=== PATIENT | male | born 1960 | race Caucasian/White ===

== ENCOUNTER 2025-02-27 08:55 | Outpatient (CLI) | payer MEDICARE, SELFPAY ==
--- OUTSIDE RECORDS SUMMARY | 2019-02-15 09:22 | XMS_ITS | Encounter Summary ---
[facility] Address [address] [place] [address] Care Team Providers Care Production Line Technician Name Role Phone Usama Ye MD Primary Care Provider [phone] Reason for Referral * Diagnostic Medical (Routine) - Closed Specialty Diagnoses / Procedures Referred By Contac t Referred To Contact Cardiology Diagnoses Chest pain, atypical Procedures Treadmill Stress Test NV CV STRS TST XERS&/OR RX CONT ECG W/SI&R Jose Eduardo Marshall MD [address] [place] [id number] Phone: tel: fax: [facility] [address] [place] [phone] Phone: tel: fax: Referral ID Status Reason Start Date Expiration Date Visits Re quested Visits Authorized [id number] Closed 02/09/2019 02/09/2020 1 1 Reason for Visit * Diagnostic Medical (Routine) - Closed Specialty Diagnoses / Procedures Referred By Contac t Referred To Contact Cardiology Diagnoses Chest pain, atypical Procedures Treadmill Stress Test NV CV STRS TST XERS&/OR RX CONT ECG W/SI&R Jose Eduardo Marshall MD [address] [place] [id number] Phone: tel: fax: [facility] [address] [address] Phone: tel: fax: Referral ID Status Reason Start Date Expiration Date Visits Re quested Visits Authorized [id number] Closed 02/09/2019 02/09/2020 1 1 Encounter Details Date Type Department Care Team (Latest Contact Info) Description 02/15/2019 9:22 AM EDT Hospital Encounter [facility] [address] [address] Chest pain, atypical Social History Tobacco Use Types Packs/Day Years Used Date Smoking Tobacco: Never Smokeless Tobacco: Never Alcohol Use Standard Drinks/Week Comments No 0 (1 standard drink = 0.6 oz pur e alcohol) [facility] Utilities Answer Date Recorded In the past 12 months has [employer], gas, oil, or water [employer] threatened to shut off services in your home? No 01/06/2025 AUDIT-C Answer Date Recorded Q1: How often do you have a drink containing alcohol? Never 01/06/2025 Q2: How many drinks containi ng alcohol do you have on a typical day when you are drinking? Patient does not drink Q3: How often do you have si x or more drinks on one occasion? Never 01/06/2025 Overall Financial Resource Strain (CARDIA) Answe r Date Recorded How hard is it for you to pa y for the very basics like food, housing, medical care, and heating? Not hard at all 01/06/2025 PHQ-2 Answer Date Recorded Retired Total Score 0 06/10/2021 [facility] Occupat ional Health - Occupational Stress Questionnaire Answer Date Recorded Do you feel stress - tense, restless, nervous, or anxious, or unable to sleep at night because your mind is troubled all the time - these days? Only a little 01/06/2025 Exercise Vital Sign Answer Date Recorde d On average, how many days pe r week do you engage in moderate to strenuous exercise (like a brisk walk)? 5 days 01/06/2025 On average, how many minutes do you engage in exercise at this level? 30 min 01/06/2025 Hunger Vital Sign Answer Date Recorded Within the past 12 months, y ou worried that your food would run out before you got the money to buy more. Never true 01/07/20 25 Within the past 12 months, t he food you bought just didn't last and you didn't have money to get more. Never true 01/06/2025 PRAPARE - Transportation Answer Date Re corded In the past 12 months, has l ack of transportation kept you from medical appointments or from getting medications? No 01/2025 In the past 12 months, has l ack of transportation kept you from meetings, work, or from getting things needed for daily living? No 01/06/2025 Abuse Screen Answer Date Recorded Feels Unsafe at Home or Work/School no 01/05/2025 Feels Threatened by Someone no 12/2024 Does Anyone Try to Keep You From Having Contact with Others or Doing Things Outside Your Home? no 01/05/2025 Physical Signs of Abuse Present no 01/05/2025 Housing Stability Answer Date Recorded Current Living Arrangements home 01/2025 Potentially Unsafe Housing Conditions none 01/06/2025 Family and Community Support Answer Fady e Recorded If for any reason you need h elp with day-to-day activities such as bathing, preparing meals, shopping, managing finances, etc., do you get the help you need? I don't need any help 01/06/2025 How often do you feel lonely or isolated from those around you? Never 01/06/2025 Employment Answer Date Recorded Do you want help finding or keeping work or a job? I do not need or want help 01/06/2025 Disabilities Answer Date Recorded Difficulty Concentrating, Remembering or Making Decisions no 01/06/2025 Difficulty Managing Errands Independently no 01/06/2025 Education Answer Date Recorded Do you want help with school or training? For example, starting or completing job training or getting a high school diploma, GED or equivalent No 01/06/2025 Preferred Language Sierra Leonean 01/06/2025 PHQ-2 Answer Date Recorded Patient Health Questionnaire-2 Score 0 01/06/2025 Sex and Gender Information Value Date Recorded Sex Assigned at Not on file Legal Sex Male 9:50 AM EDT Gender Identity Not on file Sexual Orientation Not on file documented as of this encounter Functional Status * Over the past 2 weeks, how often have you been bothered by any of the following problems? Question Answer Date of Assessment Author Patient Health Questionnaire -2 Score 0 01/06/2025 8:25 AM EDT Niki Fried RN * Calculated C-SSRS Risk Score (Lifetime/Recent) Answer Date of Assessment Author No Risk Indicated 01/05/2025 8:29 PM EDT Africa Smith RN * [place] Suicide Severity Rating Scale (Screener/Recent Self-Report) Question Answer Date of Assessment Author 1. Wish to be (Past 1 Month) No 025 8:29 PM EDT Africa Smith RN 2. Non-Specific Active Suici mercy Thoughts (Past 1 Month) No 01/05/2025 8:29 PM EDT Africa Smith RN 6. Suicidal Behavior (Lifetime) No 8:29 PM EDT Africa Smith RN * Question Answer Date of Assessment Author Little interest or pleasure in doing things Not at all 01/06/2025 8:25 AM EDT Niki Fried RN Feeling down, depressed, or hopeless Not at all 01/06/2025 8:25 AM EDT Niki Fried RN documented as of this encounter Plan of Treatment Not on file documented as of this encounter Procedures Procedure Name Priority Date/Time Associated Diagnosis Comments STRESS TEST ONLY, EXERCISE Routine 02/15/2019 9:38 AM EDT Chest pain, atypical documented in this encounter Results * (ABNORMAL) STRESS TEST ONLY, EXERCISE (02/15/2019 9:38 AM EDT) [facility] CV STRESS PROTOCOL 1 Lamonte Stage 1 1 Duration Min Stage 1 3 Duration Sec Stage 1 0 Grade Stage 1 10 Speed Stage 1 1.7 CV STRESS METS STAGE 1 5 Baseline HR 82 bpm Baseline BP 118/82 mmHg O2 sat rest 98 % Target HR (85%) 136 bpm Max. Pred. HR (100%) 160 bpm HR Stage 1 105 BP Stage 1 122/74 O2 Stage 1 98 Stage 2 2 HR Stage 2 129 BP Stage 2 128/82 O2 Stage 2 97 Duration Min Stage 2 3 Duration Sec Stage 2 0 Grade Stage 2 12 Speed Stage 2 2.5 BH CV STRESS METS STAGE 2 7.5 Stage 3 3 HR Stage 3 97 O2 Stage 3 140 Duration Min Stage 3 3 Duration Sec Stage 3 0 Grade Stage 3 14 Speed Stage 3 3.4 BH CV STRESS METS STAGE 3 10.0 Peak HR 140 bpm Percent Max Pred HR 87.50 % Percent Target HR 103 % Peak BP 128/82 mmHg O2 sat peak 97 % Recovery HR 82 bpm Recovery BP 116/76 mmHg Recovery O2 98 % Exercise duration (min) 7 min Exercise duration (sec) 1 sec Estimated workload 10.1 METS Anatomical Region Laterality Modality Other Narrative 02/15/2019 10:45 AM EDT Abnormal treadmill stress test with 1-1.5 mm of flat inferolateral ST segment depression beginning in stage II of a Lamonte protocol without associated symptoms. No high risk features. Intermediate risk Estrada treadmill score of -1. Stress Findings ECG evidence of myocardial ischemia.Positive clinical evidence of myocardial ischemia. Findings consistent with an abnormal ECG stress test. Rest ECG Baseline ECG of normal sinus rhythm noted. There was no ST segment deviation noted. Stress ECG Stress ECG rhythm of sinus tachycardia noted. A horizontal ST segment depression of 1.5 mm in the inferolateral leads was noted during stress (II, III, aVF, V5 and V6), beginning at 4 minutes of stress. There were no arrhythmias during stress. There were no significant arrhythmias noted during stress. Stress ECG was interpretable and is consistent with an abnormal stress ECG. Abnormal with interpretable ST segment stress ECG interpretation. Stress Description A stress test was performed following the Lamonte protocol. The patient reached the end of the protocol and achieved the target heart rate. The patient reported no symptoms during the stress test. The patient experienced no angina during the stress test. The Estrada Treadmill Score of -0.48 is consistent with a Moderate risk for ischemic heart disease. Blood pressure demonstrated a normal response to stress. Heart rate demonstrated a normal response to stress. Overall, the patient's exercise capacity was mildly impaired. Recovery ECG During recovery, the patient complained of no significant symptoms following stress. Sinus rhythm was noted during recovery. Normal ECG with no significant recovery phase changes noted. Procedure Note Breeding, Thomas Portillo MD - 02/15/2019 Abnormal treadmill stress test with 1-1.5 mm of flat inferolateral STsegment depression beginning in stage II of a Lamonte protocol withoutassociated symptoms. No high risk features. Intermediate risk Estrada treadmill score of -1. us Jose Eduardo Marshall MD CV STRESS ORDERABLES Final R esult documented in this encounter Visit Diagnoses Diagnosis Chest pain, atypical documented in this encounter Additional Health Concerns Infection Onset Date Last Indicated Resolved Time COVID (rule out) 02/05/2021 02/12/2021 02/19/2021 9:08 PM EDT COVID (rule out) 05/28/2021 05/28/2021 05/28/2021 6:11 PM EST COVID (confirmed) 05/28/2021 05/28/2021 08/26/2021 9:08 PM EDT documented as of this encounter Care Teams Production Line Technician Relationship Specialty Start Date End Date Usama Ye MD [address] [place] [address] PCP - General Internal Medicine 01/10/15 01/04/25 documented as of this encounter
--- OUTSIDE RECORDS SUMMARY | 2019-02-15 09:22 | XMS_ITS | Encounter Summary ---
[facility] [address] [place] [address] Care Team Providers Care Academic Tutor Name Role Phone Usama Ye MD Primary Care Provider [phone] Reason for Referral * Diagnostic Imaging (Routine) - Closed Specialty Diagnoses / Procedures Referred By Contac t Referred To Contact Cardiology Diagnoses Chest pain, atypical Procedures Adult Transthoracic Echo Complete W/ Cont if Necessary Per Protocol [place] ECHO HEART XTHORACIC,COMPLETE W DOPPLER Jose Eduardo Marshall MD [address] [place] [address] Phone: tel: fax: [facility] [address] [phone] Phone: tel: fax: Referral ID Status Reason Start Date Expiration Date Visits Re quested Visits Authorized [id number] Closed 02/09/2019 02/09/2020 1 1 Reason for Visit * Diagnostic Imaging (Routine) - Closed Specialty Diagnoses / Procedures Referred By Contac t Referred To Contact Cardiology Diagnoses Chest pain, atypical Procedures Adult Transthoracic Echo Complete W/ Cont if Necessary Per Protocol [place] ECHO HEART XTHORACIC,COMPLETE W DOPPLER Jose Eduardo Marshall MD [address] [address] Phone: tel: fax: [facility] [address] [address] Phone: tel: fax: Referral ID Status Reason Start Date Expiration Date Visits Re quested Visits Authorized [id number] Closed 02/09/2019 02/09/2020 1 1 Encounter Details Date Type Department Care Team (Latest Contact Info) Description 02/15/2019 9:22 AM EDT Hospital Encounter [facility] [address] [phone] Chest pain, atypical Social History Tobacco Use Types Packs/Day Years Used Date Smoking Tobacco: Never Smokeless Tobacco: Never Alcohol Use Standard Drinks/Week Comments No 0 (1 standard drink = 0.6 oz pur e alcohol) [facility] Utilities Answer Date Recorded In the past 12 months has [employer], gas, oil, or water [employer] threatened to shut off services in your [...] Date Recorded Retired Total Score 0 06/10/2021 [facility] Occupat ional Health - Occupational Stress [...] GED or equivalent No 01/06/2025 Preferred Language Chilean 01/06/2025 PHQ-2 Answer Date Recorded Patient Health Questionnaire-2 Score 0 01/06/2025 Sex and Gender Information Value Date Recorded Sex Assigned at Not on file Legal Sex Male 9:50 AM EDT Gender Identity Not on file Sexual Orientation Not on file documented as of this encounter Last Filed Vital Signs Vital Sign Reading Time Taken Comments Blood Pressure 118/82 02/15/2019 9:23 AM EDT Pulse - - Temperature - - Respiratory Rate - - Oxygen Saturation - - Inhaled Oxygen Concentration - - Weight 93 kg (205 lb) 02/15/2019 9:23 AM EDT Height 180.3 cm (5' 11 ) 02/15/2019 9:23 AM EDT Body Mass Index 28.59 02/15/2019 9:23 AM EDT documented in this encounter Functional Status * Over the past 2 weeks, how often have you been bothered by any of the following problems? Question Answer Date of Assessment Author Patient Health Questionnaire -2 Score 0 01/06/2025 8:25 AM EDT Niki Fried RN * Calculated C-SSRS Risk Score (Lifetime/Recent) Answer Date of Assessment Author No Risk Indicated 01/05/2025 8:29 PM EDT Africa Smith RN * [place] Suicide Severity Rating Scale (Screener/Recent Self-Report) Question [...] Procedure Name Priority Date/Time Associated Diagnosis Comments ECHO COMPLETE W/ DOPPLER AND COLOR FLOW Routine 02/15/2019 9:35 AM EDT Chest pain, atypical documented in this encounter Results * ECHO COMPLETE W/ DOPPLER AND COLOR FLOW (02/15/2019 9:35 AM EDT) IVSd 0.95 cm [facility] IVSs 1.3 cm [facility] LVIDd 4.5 cm [facility] LVIDs 3.1 cm [facility] LVPWd 0.7 cm [facility] BH CV ECHO ALETA - LVPWS 1.0 cm [facility] IVS/LVPW 1.4 [facility] FS 30.3 % [facility] EDV(Teich) 90.1 ml [facility] ESV(Teich) 37.9 ml [facility] EF(Teich) 57.9 % [facility] EDV(cubed) 88.1 ml [facility] ESV(cubed) 29.8 ml [facility] EF(cubed) 66.2 % [facility] % IVS thick 31.6 % [facility] % LVPW thick 42.9 % [facility] LV mass(C)d 116.1 grams [facility] LV mass(C)s 103.2 grams [facility] SV(Teich) 52.1 ml [facility] SV(cubed) 58.3 ml [facility] Ao root diam 2.0 cm [facility] Ao root area 3.1 cm^2 [facility] LA dimension (2D) 3.3 cm [facility] LA/Ao 1.7 [facility] LVOT diam 2.0 cm [facility] LVOT area 3.1 cm^2 [facility] LVOT area(traced) 3.1 cm^2 [facility] LAd major 5.2 cm [facility] LVLd ap4 8.7 cm [facility] EDV(MOD-sp4) 102.0 ml [facility] LVLs ap4 7.1 cm [facility] ESV(MOD-sp4) 34.0 ml [facility] EF(MOD-sp4) 66.7 % [facility] SV(MOD-sp4) 68.0 ml [facility] MV E max dale 54.3 cm/sec [facility] MV A max dale 49.5 cm/sec [facility] MV E/A 1.1 [facility] LV IVRT 0.14 sec [facility] MV V2 max 71.7 cm/sec [facility] MV max PG 2.1 mmHg [facility] MV V2 mean 50.2 cm/sec [facility] MV mean PG 1.0 mmHg [facility] MV V2 VTI 24.1 cm [facility] MVA(VTI) 2.3 cm^2 [facility] MV P1/2t max dale 54.3 cm/sec [facility] MV P1/2t 105.3 msec [facility] MVA(P1/2t) 2.1 cm^2 [facility] MV dec slope 151.0 cm/sec^2 [facility] MV dec time 0.35 sec [facility] Ao pk dale 119.5 cm/sec [facility] Ao max PG 6.0 mmHg [facility] Ao max PG (full) 2.7 mmHg [facility] Ao V2 mean 87.0 cm/sec [facility] Ao mean PG 3.0 mmHg [facility] Ao mean PG (full) 1.0 mmHg [facility] Ao V2 VTI 27.8 cm [facility] NITIN(I,A) 2.0 cm^2 [facility] NITIN(I,D) 2.0 cm^2 [facility] NITIN(V,A) 2.4 cm^2 [facility] NITIN(V,D) 2.4 cm^2 [facility] LV V1 max PG 3.3 mmHg [facility] LV V1 mean PG 2.0 mmHg [facility] LV V1 max 91.1 cm/sec [facility] LV V1 mean 57.7 cm/sec [facility] LV V1 VTI 17.4 cm [facility] SV(Ao) 87.3 ml [facility] SV(LVOT) 54.7 ml [facility] TV V2 max 51.6 cm/sec [facility] TV max PG 1.1 mmHg [facility] PA V2 max 89.4 cm/sec [facility] PA max PG 3.2 mmHg [facility] TR max dale 195.0 cm/sec [facility] TR max PG 15.0 mmHg [facility] RVSP(TR) 25.0 mmHg [facility] RAP systole 5 mmHg [facility] MVA P1/2T LCG 4.1 cm^2 [facility] Lat E/e' 4.1 [facility] Med E/e' 5.8 [facility] Lat Peak E' Dale 13.3 cm/sec [facility] Med Peak E' Dale 9.4 cm/sec [facility] Avg E/e' ratio 4.78 [facility] Echo EF Estimated 58 % [facility] Anatomical Region Laterality Modality Ultrasound 02/15/2019 9:25 AM EDT Narrative 02/15/2019 10:48 AM EDT Estimated EF = 58%. Left Ventricle Estimated EF appears to be in the range of 56 - 60%. Estimated EF = 58%. Normal left ventricular cavity size and wall thickness noted. All left ventricular wall segments contract normally. Septal wall motion is normal. Left ventricular diastolic function is normal. Normal left atrial pressure. There is no evidence of a left ventricular mass or thrombus present. Right Ventricle Normal right ventricular cavity size, wall thickness, systolic function and septal motion noted. No evidence of a right ventricular thrombus present. No evidence of a right ventricular mass present. Left Atrium Normal left atrial size and volume noted. No evidence of a left atrial thrombus present. No evidence of a left atrial mass present. appear normal with no flow abnormalities. Right Atrium Normal right atrial size noted. The inferior vena cava is normally sized. Normal IVC inspiratory collapse of greater than 50% noted. Normal IVC flow pattern noted. No persistent left superior vena cava noted. No evidence of a right atrial thrombus present. No evidence of a right atrial mass present. Mitral Valve The mitral valve is normal in structure. Trace mitral valve regurgitation is present. No significant mitral valve stenosis is present. Tricuspid Valve The tricuspid valve is normal. No evidence of tricuspid valve stenosis is present. Physiologic tricuspid valve regurgitation is present. Estimated right ventricular systolic pressure from tricuspid regurgitation is normal (<35 mmHg). No evidence of pulmonary hypertension is present. Aortic Valve The aortic valve is structurally normal. The valve appears trileaflet. No aortic valve regurgitation is present. No aortic valve stenosis is present. Pulmonic Valve The pulmonic valve is structurally normal. There is no significant pulmonic valve stenosis present. There is no significant pulmonic valve regurgitation present. Pericardium The pericardium is normal. There is no evidence of pericardial effusion. Additional Study Details Echocardiogram The study is technically good for diagnosis. Greater Vessels No dilation of the aortic root is present. No dilation of the sinuses of Valsalva is present. Wall Scoring Resting Score Index: 1.00 The left ventricular wall motion is normal. us Jose Eduardo Marshall MD CV ECHO ORDERABLES Final Res ult documented in this encounter Visit Diagnoses Diagnosis Chest pain, atypical documented in this encounter Additional Health Concerns Infection Onset Date Last Indicated Resolved Time COVID (rule out) 02/05/2021 02/12/2021 02/19/2021 9:08 PM EDT COVID (rule out) 05/28/2021 05/28/2021 05/28/2021 6:11 PM EST COVID (confirmed) 05/28/2021 05/28/2021 08/26/2021 9:08 PM EDT documented as of this encounter Care Teams Academic Tutor Relationship Specialty Start Date End Date Usama Ye MD [address] [place] [address] PCP - General Internal Medicine 01/10/15 01/04/25 documented as of this encounter
--- OUTSIDE RECORDS SUMMARY | 2025-01-05 20:48 | XMS_ITS | Encounter Summary ---
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 Glucose, UA Negative Negative Ketones, UA Negative Negative Bilirubin, UA Negative Negative Blood, UA Negative Negative Protein, UA Negative Negative Leuk Esterase, UA Negative Negative Nitrite, UA Negative Negative Urobilinogen, UA 0.2 E.U./dL 0.2 - 1.0 E.U./dL POC Glucose Once Collection Time: 01/05/25 11:54 PM Specimen: Blood Result Value Ref Range Glucose 74 70 - 130 mg/dL High Sensitivity Troponin T Collection Time: 01/06/25 12:10 AM Specimen: Blood Result Value Ref Range HS Troponin T 12 <22 ng/L High Sensitivity Troponin T 1Hr Collection Time: 01/06/25 1:15 AM Specimen: Blood Result Value Ref Range HS Troponin T 13 <22 ng/L Troponin T Numeric Delta 1 Abnormal if >/=3 ng/L If labs were ordered, I independently reviewed the results and considered them in treating the patient. See medical decision making discussion section for my interpretation of lab results. RADIOLOGY CT Angiogram Chest Pulmonary Embolism Result Date: 01/06/2025 FINAL REPORT TECHNIQUE: null CLINICAL HISTORY: Chest pain, near syncope, hypotension COMPARISON: null FINDINGS: CT angiography chest with contrast. MIP and MPR reformations. Comparison: None providedFindings: The heart is normal size. No thoracic aortic aneurysm or dissection. No pulmonary artery filling defects. The visualized thyroid and mediastinum are unremarkable. No consolidation or effusion. There is bilateral diffuse ground-glass density. Prior granulomatous disease changes. The visualized upper abdomen demonstrates prior cholecystectomy change and multiple splenic calcifications. The bones are intact. IMPRESSION: 1. No pulmonary emboli. 2. Nonspecific ground-glass density which may represent an acute pneumonitis. 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 There is mucosal thickening of the visualized distal esophagus. Prior cholecystectomy. Minimal associated intrahepatic and extrahepatic biliary dilatation. Multiple splenic calcifications from priorgranulomatous disease. The pancreas is unremarkable. No renal stones or hydronephrosis. Stable leftrenal cortical defects likely from previous infection or infarction. No bowel obstruction, pneumoperitoneum, or pneumatosis. Normal appendix. The bladder is unremarkable. There is prostatomegaly. No free fluid. The bones are intact. IMPRESSION: 1. No acute findings. 2. Changes of esophagitis. Authenticated and I ordered and independently reviewed the above noted radiographic studies. See radiologist's dictation for official interpretation. Per my independent reading: CT imaging of the abdomen pelvis obtained based on my independent initial review is negative for evidence of bowel obstruction, hydronephrosis or abdominal aortic aneurysm. PROCEDURES Procedures ECG 12 Lead Syncope Final Result MEDICATIONS GIVEN IN ER Medications sodium chloride 0.9 % flush 10 mL (has no administration in time range) sodium chloride 0.9 % bolus 1,000 mL (0 mL Intravenous Stopped 01/05/25 2300) fentaNYL citrate (PF) (SUBLIMAZE) injection 25 mcg (25 mcg Intravenous Given 01/05/252142) ondansetron (ZOFRAN) injection 4 mg (4 mg Intravenous Given 01/05/252142) ketorolac (TORADOL) injection 15 mg (15 mg Intravenous Given 01/05/252142) HYDROmorphone (DILAUDID) injection 0.25 mg (0.25 mg Intravenous Given 01/05/252255) iopamidol (ISOVUE-300) 61 % injection 100 mL (100 mL Intravenous Given 01/05/25 2333) sodium chloride 0.9 % bolus 1,000 mL (0 mL Intravenous Stopped 01/06/25 0115) iopamidol (ISOVUE-300) 61 % injection 85 mL (85 mL Intravenous Given 01/06/25 0058) MEDICAL DECISION MAKING, PROGRESS, and CONSULTS All labs, if obtained, have been independently reviewed by me. All radiology studies, if obtained, have been reviewed by me and the radiologist dictating the report. All EKG's, if obtained, have beenindependently viewed and interpreted by me/my attending physician. Discussion below represents my analysis of pertinent findings related to patient's condition, differential diagnosis, treatment plan and final disposition. Differential diagnosis: Differential diagnosis for this patient includes hepatitis, cholangitis, pancreatitis, gastritis, enteritis, colitis, gastroenteritis, appendicitis, volvulus, obstruction, ischemia, torsion, cystitis, pyelonephritis, nephrolithiasis, uretolithiasis, other acute emergency. Patient reports cholecystectomy. Medical Decision Making Discussion: Vitals reviewed and demonstrate bradycardia but otherwise are normal. Labs reviewed and are all unremarkable. UA negative for infection. CT abdomen pelvis obtained and per radiology is negative for acute findings. Patient ambulated to the restroom where he reported that he began feeling dizzy. He reports that trying to ambulate back to his gurney he felt very nauseous as if he was going to throw up, lightheaded and very sweaty. Patient was assisted back into the gurney where he was noted to be bradycardic, hypotensive, pale and diaphoretic. Patient given IV fluid bolus with resolution of hypotension but he remained bradycardic. EKG was obtained which based on my independent review demonstrated sinus bradycardia. No AV block. No acute ischemic changes. Patient reported he has some associated dyspnea and retrosternal chest discomfort. Troponin was sent which was normal. Repeat troponin obtained and there was no significant delta rise. Given near syncopal event with reported chest pain and dyspnea CT PE protocol performed and per radiology is negative for evidence of PE, dissection or any other acute findings. Patient was noted to have a sinus pause while on telemetry monitoring. On repeat examination patient's had resolution of hypotension but remains bradycardic. He reports resolution of his lightheadedness. Given his persistent bradycardia with near syncopal event and sinus pause on telemetry monitoring I think he is appropriate for hospitalization. This was discussed with Dr. Ramires who accepted the patient for hospitalization. 30 minutes of critical care provided. This time excludes other billable procedures. Time does include preparation of documents, medical consultations, review of old records, and direct bedside care. Patient is at high risk for life-threatening deterioration due to near syncope, transient hypotension, bradycardia. Additional sources: - Discussed/ obtained information from independent historians: - External (non-ED) record review: Gastroenterology note from 01/24/2025 documenting history of heart disease with prior PCI, GERD, hepatic flexure syndrome. - Chronic or social conditions impacting care: Heart disease Shared Decision Making: After my consideration of clinical presentation and any laboratory/radiology studies obtained, I discussed the findings with the patient/patient containers sales representative who is in agreement with the treatment plan and the final disposition. Risks and benefits of discharge and/or observation/admission were discussed. Orders placed during this visit: Orders Placed This Encounter Procedures CT Abdomen Pelvis With Contrast CT Angiogram Chest Pulmonary Embolism [place] Draw Comprehensive Metabolic Panel Lipase Urinalysis With Microscopic If Indicated (No Culture) - Urine, Clean Catch Lactic Acid, Plasma CBC Auto Differential High Sensitivity Troponin T High Sensitivity Troponin T 1Hr NPO Diet NPO Type: Strict NPO Undress & Gown Code Status and Medical Interventions: CPR (Attempt to Resuscitate); Full Support POC Glucose Once ECG 12 Lead Syncope Insert Peripheral IV Initiate Observation Status CBC & Differential Green Top (Gel) Lavender Top Gold Top - SST Light Blue Top OF 02:22 EDT VITALS: BP - 112/63 HR - 52 TEMP - 97.8 ??F (36.6 ??C) (Oral) O2 SATS - 94% DIAGNOSIS Final diagnoses: Near syncope Bradycardia Right lower quadrant abdominal pain DISPOSITION Admit Please note that portions of this document were completed with voice recognition software. Ike Enamorado MD 01/06/25 0222 documented in this encounter Miscellaneous Notes * Case Management/Social Work - Niki Fried RN - 01/06/2025 10:22 AM EDT Case Management Discharge Note Final Note: Patient is discharging today. His plan is home with his . will transport. No needs noted. Selected Continued Care - Admitted Since 01/05/2025 Destination No services have been selected for the patient. Durable Medical Equipment No services have been selected for the patient. Dialysis/Infusion No services have been selected for the patient. Home Medical Care No services have been selected for the patient. Therapy No services have been selected for the patient. Community Resources No services have been selected for the patient. Community & DME No services have been selected for the patient. Transportation Services Transportation: Private Transportation Private: Car Final Discharge Disposition Code: 01 - home or self-care * Case Management/Social Work - Niki Fried RN - 01/06/2025 8:29 AM EDT Images from the original note were not included. Discharge Planning Assessment Dennys Patient Name: Neo Reardon Jr. Today's Date: 01/06/2025 Admit Date: 01/05/2025 Plan: Home with , pending therapy recommendations Discharge Needs Assessment Row Name 01/06/25 0826 Living Environment People in Home spouse Primary Care Provided by self Provides Primary Care For no one Family Caregiver if Needed spouse Family Caregiver Names , Patience Quality of Family Relationships helpful;involved;supportive Able to Return to Prior Arrangements yes Resource/Environmental Concerns Resource/Environmental Concerns none Transportation Concerns none Transition Planning Patient/Family Anticipates Transition to home with family Patient/Family Anticipated Services at Transition case resource managersalt manager Anticipated family or friend will provide Discharge Needs Assessment Readmission Within the Last 30 Days no previous admission in last 30 days Equipment Currently Used at Home cpap Concerns to be Addressed denies needs/concerns at this time Anticipated Changes Related to Illness none Equipment Needed After Discharge other (see comments) TBD Discharge Plan Row Name 01/06/25 0827 Plan Plan Home with , pending therapy recommendations Patient/Family in Agreement with Plan yes Plan Comments Spoke to patient and at bedside to initiate discharge planning. Verified demographics. Patient lives at home with his and is independent with ADL's/drives. CPAP. He is not current with home health and does not use home oxygen. PCP is Vandana Abrams. Preferred pharmacy is [facility]. Declines meds to bed. No living will/POA/HCS. Denies any financial, food or resource concerns. Plan is home with his . CM will continue to follow. Continued Care and Services - Admitted Since 01/05/2025 No active coordination exists. Demographic Summary Row Name 01/06/25 0825 General Information Admission Type observation Arrived From emergency department Required Notices Provided Observation Status Notice Referral Source admission list Reason for Consult discharge planning Functional Status Row Name 01/06/25 0825 Functional Status Usual Activity Tolerance good Current Activity Tolerance good Functional Status, IADL Medications independent Meal Preparation independent Housekeeping independent Laundry independent Shopping independent Psychosocial No documentation. Abuse/Neglect No documentation. Legal No documentation. Substance Abuse No documentation. Patient Forms No documentation. Niki Fried RN documented in this encounter Plan of Treatment Not on file documented as of this encounter Procedures Procedure Name Priority Date/Time Associated Diagnosis Comments HIGH SENSITIVITIY TROPONIN T 1HR STAT 01/06/2025 1:[address] ANGIOGRAM CHEST PULMONARY EMBOLISM STAT 01/06/2025 12:58 AM EDT TROPONIN STAT 01/06/2025 12:10 AM EDT ECG 12-LEAD STAT 01/06/2025 12:09 AM EDT POCT GLUCOSE FINGERSTICK STAT 01/05/2025 11:[address] ABDOMEN PELVIS W CONTRAST STAT 01/05/2025 11:32 PM EDT URINALYSIS W/ MICROSCOPIC IF INDICATED (NO CULTURE) STAT 01/05/2025 9:49 PM EDT GOLD TOP - SST STAT 01/05/2025 8:37 PM EDT DK GREEN TOP STAT 01/05/2025 8:37 PM EDT CBC WITH AUTO DIFFERENTIAL STAT 01/05/2025 8:37 PM EDT LAVENDER TOP STAT 01/05/2025 8:37 PM EDT LIGHT BLUE TOP STAT 01/05/2025 8:37 PM EDT RAINBOW DRAW STAT 01/05/2025 8:37 PM EDT CBC AND DIFFERENTIAL STAT 01/05/2025 8:37 PM EDT LIPASE STAT 01/05/2025 8:37 PM EDT LACTIC ACID, PLASMA STAT 01/05/2025 8 :37 PM EDT COMPREHENSIVE METABOLIC PANEL STAT 01/05/2025 8:37 PM EDT documented in this encounter Results * High Sensitivity Troponin T 1Hr (01/06/2025 1:15 AM EDT) HS Troponin T 13 <22 ng/L 01/06/2025 1:40 AM EDT [facility] Troponin T Numeric Delta 1 Abnormal if >/=3 ng/L 01/06/2025 1:40 AM EDT [facility] Blood Venipuncture / Unknown 01/06/2025 1:15 AM EDT 01/06/2025 1:17 AM EDT Narrative [facility] - 01/06/2025 1:40 AM EDT High Sensitive Troponin T Reference Range: <14.0 ng/L- Negative Female for AMI <22.0 ng/L- Negative Male for AMI >=14 - Abnormal Female indicating possible myocardial injury. >=22 - Abnormal Male indicating possible myocardial injury. Clinicians would have to utilize clinical acumen, EKG, Troponin, and serial changes to determine if it is an Acute Myocardial Infarction or myocardial injury due to an underlying chronic condition. us Ike Enamorado MD LAB BLOOD ORDERABLES Final Resul t [facility]
[address] [place] [address], * CT Angiogram Chest Pulmonary Embolism (01/06/2025 12:58 AM EDT) Anatomical Region Laterality Modality Chest N/A Computed Tomogra phy 01/06/2025 1:52 AM EDT Impressions 01/06/2025 1:52 AM EDT IMPRESSION: 1. No pulmonary emboli. 2. Nonspecific ground-glass density which may represent an acute pneumonitis. Authenticated and Narrative 01/06/2025 1:52 AM EDT FINAL REPORT TECHNIQUE: null CLINICAL HISTORY: Chest pain, near syncope, hypotension COMPARISON: null FINDINGS: CT angiography chest with contrast. MIP and MPR reformations. Comparison: None provided Findings: The heart is normal size. No thoracic aortic aneurysm or dissection. No pulmonary artery filling defects. The visualized thyroid and mediastinum are unremarkable. No consolidation or effusion. There is bilateral diffuse ground-glass density. Prior granulomatous disease changes. The visualized upper abdomen demonstrates prior cholecystectomy change and multiple splenic calcifications. The bones are intact. Procedure Note Félix Stokes MD - 01/06/2025 FINAL REPORT TECHNIQUE: null CLINICAL HISTORY: Chest pain, near syncope, hypotension COMPARISON: null FINDINGS: CT angiography chest with contrast. MIP and MPR reformations. Comparison: None provided Findings: The heart is normal size. No thoracic aortic aneurysm or dissection. No pulmonary artery filling defects. The visualized thyroid and mediastinum are unremarkable. No consolidation or effusion. There is bilateral diffuse ground-glassdensity. Prior granulomatous disease changes. The visualized upper abdomen demonstrates prior cholecystectomy change andmultiple splenic calcifications. The bones are intact. IMPRESSION: IMPRESSION: 1. No pulmonary emboli. 2. Nonspecific ground-glass density which may represent an acutepneumonitis. Authenticated and us Ike Enamorado MD IMG CT ORDERABLES Final Result * High Sensitivity Troponin T (01/06/2025 12:10 AM EDT) Pathologist [facility] HS Troponin T 12 <22 ng/L 01/06/2025 12:37 AM EDT [facility] Blood Venipuncture / Unknown 01/06/2025 12:10 AM EDT 01/06/2025 12:13 AM EDT Narrative [facility] - 01/06/2025 12:37 AM EDT High Sensitive Troponin T Reference Range: <14.0 ng/L- Negative Female for AMI <22.0 ng/L- Negative Male for AMI >=14 - Abnormal Female indicating possible myocardial injury. >=22 - Abnormal Male indicating possible myocardial injury. Clinicians would have to utilize clinical acumen, EKG, Troponin, and serial changes to determine if it is an Acute Myocardial Infarction or myocardial injury due to an underlying chronic condition. us Ike Enamorado MD LAB BLOOD ORDERABLES Final Resul t [facility]
[address] [place] [address], * ECG 12 Lead Syncope (01/06/2025 12:09 AM EDT) us Ike Enamorado MD ECG ORDERABLES Final Result * POC Glucose Once (01/05/2025 11:54 PM EDT) Pathologist [facility] Glucose 74 70 - 130 mg/dL 01/05/2025 11:57 PM EDT [facility] Comment:Serial Number: [id number]: [id number] Blood 01/05/2025 11:5 4 PM EDT 01/05/2025 11:57 PM EDT Ike Enamorado MD POINT OF CARE TEST ORDERABLES Fi nal Result [facility]
[address] [place] [address], * CT Abdomen Pelvis With Contrast (01/05/2025 11:32 PM EDT) Anatomical Region Laterality Modality Abdomen, Pelvis N/A Computed Tomogra phy 01/06/2025 12:2 5 AM EDT Impressions 01/06/2025 12:25 AM EDT IMPRESSION: 1. No acute findings. 2. Changes of esophagitis. 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 There is mucosal thickening of the visualized distal esophagus. Prior cholecystectomy. Minimal associated intrahepatic and extrahepatic biliary dilatation. Multiple splenic calcifications from prior granulomatous disease. The pancreas is unremarkable. No renal stones or hydronephrosis. Stable left renal cortical defects likely from previous infection or infarction. No bowel obstruction, pneumoperitoneum, or pneumatosis. Normal appendix. The bladder is unremarkable. There is prostatomegaly. No free fluid. The bones are intact. 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 There is mucosal thickening of the visualized distal esophagus. Prior cholecystectomy. Minimal associated intrahepatic and extrahepaticbiliary dilatation. Multiple splenic calcifications from prior granulomatous disease. The pancreas is unremarkable. No renal stones or hydronephrosis. Stable left renal cortical defectslikely from previous infection or infarction. No bowel obstruction, pneumoperitoneum, or pneumatosis. Normal appendix. The bladder is unremarkable. There is prostatomegaly. No free fluid. The bones are intact. IMPRESSION: IMPRESSION: 1. No acute findings. 2. Changes of esophagitis. Authenticated and Ike Enamorado MD IMG CT ORDERABLES Final Result * Urinalysis With Microscopic If Indicated (No Culture) - Urine, Clean Catch (01/05/2025 9:49 PM EDT) Color, UA Yellow Yellow, Straw 01/05/2025 9:58 PM EDT [facility] Appearance, UA Clear Clear 01/05/2025 9:58 PM EDT [facility] pH, UA 6.5 5.0 - 8.0 01/05/2025 9:58 PM EDT [facility] Specific [place], UA <=1.005 1.005 - 1.030 01/05/2025 9:58 PM EDT [facility] Glucose, UA Negative Negative 01/05/2025 9:58 PM EDT [facility] Ketones, UA Negative Negative 01/05/2025 9:58 PM EDT [facility] Bilirubin, UA Negative Negative 01/05/2025 9:58 PM EDT [facility] Blood, UA Negative Negative 01/05/2025 9:58 PM EDT [facility] Protein, UA Negative Negative 01/05/2025 9:58 PM EDT [facility] Leuk Esterase, UA Negative Negative 01/05/2025 9:58 PM EDT [facility] Nitrite, UA Negative Negative 01/05/2025 9:58 PM EDT [facility] Urobilinogen, UA 0.2 E.U./dL 0.2 - 1.0 E.U./dL 01/05/2025 9:58 PM EDT [facility] Urine Urine specimen obtained by clean catch procedure / Unknown Collection / Unknown 01/05/2025 9:49 PM EDT 01/05/2025 9:55 PM EDT Narrative [facility] - 01/05/2025 9:58 PM EDT Urine microscopic not indicated. Ike Enamorado MD URINE ORDERABLES Final Result [facility]
[address] [place] [address], * CBC Auto Differential (01/05/2025 8:37 PM EDT) WBC 5.50 3.40 - 10.80 10*3/mm3 01/05/2025 8:44 PM EDT [facility] RBC 4.27 4.14 - 5.80 10*6/mm3 01/05/2025 8:44 PM EDT [facility] Hemoglobin 13.0 13.0 - 17.7 g/dL 01/05/2025 8:44 PM EDT [facility] Hematocrit 37.7 37.5 - 51.0 % 01/05/2025 8:44 PM EDT [facility] MCV 88.3 79.0 - 97.0 fL 01/05/2025 8:44 PM EDT [facility] MCH 30.4 26.6 - 33.0 pg 01/05/2025 8:44 PM EDT [facility] MCHC 34.5 31.5 - 35.7 g/dL 01/05/2025 8:44 PM EDT [facility] RDW 12.7 12.3 - 15.4 % 01/05/2025 8:44 PM EDT [facility] RDW-SD 40.9 37.0 - 54.0 fl 01/05/2025 8:44 PM EDT [facility] MPV 9.9 6.0 - 12.0 fL 01/05/2025 8:44 PM EDT [facility] Platelets 215 140 - 450 10*3/mm3 01/05/2025 8:44 PM EDT [facility] Neutrophil % 61.6 42.7 - 76.0 % 01/05/2025 8:44 PM EDT [facility] Lymphocyte % 24.5 19.6 - 45.3 % 01/05/2025 8:44 PM EDT [facility] Monocyte % 8.2 5.0 - 12.0 % 01/05/2025 8:44 PM EDT [facility] Eosinophil % 4.4 0.3 - 6.2 % 01/05/2025 8:44 PM EDT [facility] Basophil % 1.1 0.0 - 1.5 % 01/05/2025 8:44 PM EDT [facility] Immature Grans % 0.2 0.0 - 0.5 % 01/05/2025 8:44 PM EDT [facility] Neutrophils, Absolute 3.39 1.70 - 7.00 10*3/mm3 01/05/2025 8:44 PM EDT [facility] Lymphocytes, Absolute 1.35 0.70 - 3.10 10*3/mm3 01/05/2025 8:44 PM EDT [facility] Monocytes, Absolute 0.45 0.10 - 0.90 10*3/mm3 01/05/2025 8:44 PM EDT [facility] Eosinophils, Absolute 0.24 0.00 - 0.40 10*3/mm3 01/05/2025 8:44 PM EDT [facility] Basophils, Absolute 0.06 0.00 - 0.20 10*3/mm3 01/05/2025 8:44 PM EDT [facility] Immature Grans, Absolute 0.01 0.00 - 0.05 10*3/mm3 01/05/2025 8:44 PM EDT [facility] nRBC 0.0 0.0 - 0.2 /100 WBC 01/05/2025 8:44 PM EDT [facility] Blood Venipuncture / Unknown 01/05/2025 8:37 PM EDT 01/05/2025 8:41 PM EDT us Ike Enamorado MD LAB BLOOD ORDERABLES Final Resul t Performing Organization Address City/[facility]/ZIP Co de Phone Number [facility]
[address] [place] [address], * Light Blue Top (01/05/2025 8:37 PM EDT) Extra Tube Hold for add-ons. 01/05/2025 8:45 PM EDT [facility] Comment:Auto resulted Blood Venipuncture / Unknown 01/05/2025 8:37 PM EDT 01/05/2025 8:41 PM EDT us Ike Enamorado MD LAB BLOOD ORDER ONLY Final Resul t Performing Organization Address [facility] Co de Phone Number [facility]
[address] [place] [address], * Gold Top - SST (01/05/2025 8:37 PM EDT) Extra Tube Hold for add-ons. 01/05/2025 9:00 PM EDT [facility] Comment:Auto resulted. Blood Venipuncture / Unknown 01/05/2025 8:37 PM EDT 01/05/2025 8:41 PM EDT us Ike Enamorado MD LAB BLOOD ORDER ONLY Final Resul t Performing Organization Address City/[facility] Co de Phone Number [facility]
[address] [place] [address], * Lavender Top (01/05/2025 8:37 PM EDT) Extra Tube hold for add-on 01/05/2025 8:45 PM EDT [facility] Comment:Auto resulted Blood Venipuncture / Unknown 01/05/2025 8:37 PM EDT 01/05/2025 8:41 PM EDT us Ike Enamorado MD LAB BLOOD ORDER ONLY Final Resul t Performing Organization Address [facility] de Phone Number [facility]
[address] [place] [address], * Green Top (Gel) (01/05/2025 8:37 PM EDT) Extra Tube Hold for add-ons. 01/05/2025 8:45 PM EDT [facility] Comment:Auto resulted. Blood Venipuncture / Unknown 01/05/2025 8:37 PM EDT 01/05/2025 8:41 PM EDT us Ike Enamorado MD LAB BLOOD ORDER ONLY Final Resul t Performing Organization Address [facility] de Phone Number [facility]
[address] [place] [address], * Lactic Acid, Plasma (01/05/2025 8:37 PM EDT) Lactate 0.9 0.5 - 2.0 mmol/L 01/05/2025 8:59 PM EDT [facility] Blood Venipuncture / Unknown 01/05/2025 8:37 PM EDT 01/05/2025 8:41 PM EDT us Ike Enamorado MD LAB BLOOD ORDERABLES Final Resul t Performing Organization Address [facility] de Phone Number [facility]
[address] [place] [address], * Lipase (01/05/2025 8:37 PM EDT) Lipase 50 13 - 60 U/L 01/05/2025 9:03 PM EDT [facility] Blood Venipuncture / Unknown 01/05/2025 8:37 PM EDT 01/05/2025 8:41 PM EDT Ike Enamorado MD LAB BLOOD ORDERABLES Final Resul t [facility]
[address] [place] [address], * (ABNORMAL) Comprehensive Metabolic Panel (01/05/2025 8:37 PM EDT) Glucose 125(H) 65 - 99 mg/dL 01/05/2025 9:13 PM EDT [facility] BUN 16.0 8.0 - 23.0 mg/dL 01/05/2025 9:13 PM EDT [facility] Creatinine 1.10 0.76 - 1.27 mg/dL 01/05/2025 9:13 PM EDT [facility] Sodium 142 136 - 145 mmol/L 01/05/2025 9:13 PM EDT [facility] Potassium 4.0 3.5 - 5.2 mmol/L 01/05/2025 9:13 PM EDT [facility] Chloride 107 98 - 107 mmol/L 01/05/2025 9:13 PM EDT [facility] CO2 24.8 22.0 - 29.0 mmol/L 01/05/2025 9:13 PM EDT [facility] Calcium 8.8 8.6 - 10.5 mg/dL 01/05/2025 9:13 PM EDT [facility] Total Protein 6.5 6.0 - 8.5 g/dL 01/05/2025 9:13 PM EDT [facility] Albumin 4.2 3.5 - 5.2 g/dL 01/05/2025 9:13 PM EDT [facility] ALT (SGPT) 46(H) 1 - 41 U/L 01/05/2025 9:13 PM EDT [facility] AST (SGOT) 38 1 - 40 U/L 01/05/2025 9:13 PM EDT [facility] Alkaline Phosphatase 78 39 - 117 U/L 01/05/2025 9:13 PM EDT [facility] Total Bilirubin 0.7 0.0 - 1.2 mg/dL 01/05/2025 9:13 PM EDT [facility] Globulin 2.3 gm/dL 01/05/2025 9:13 PM EDT [facility] A/G Ratio 1.8 g/dL 01/05/2025 9:13 PM EDT [facility] BUN/Creatinine Ratio 14.5 7.0 - 25.0 01/05/2025 9:13 PM EDT [facility] Anion Gap 10.2 5.0 - 15.0 mmol/L 01/05/2025 9:13 PM EDT [facility] eGFR 74.0 >60.0 mL/min/1.7 3 01/05/2025 9:13 PM EDT [facility] Blood Venipuncture / Unknown 01/05/2025 8:37 PM EDT 01/05/2025 8:41 PM EDT [facility] - 01/05/2025 9:13 PM EDT GFR Categories in Chronic Kidney Disease (CKD) GFR Category GFR (mL/min/1.73) Interpretation G1 90 or greater Normal or high (1) G2 60-89 Mild decrease (1) G3a 45-59 Mild to moderate decrease G3b 30-44 Moderate to severe decrease G4 15-29 Severe decrease G5 14 or less Kidney failure (1)In the absence of evidence of kidney disease, neither GFR category G1 or G2 fulfill the criteria for CKD. eGFR calculation 2020 CKD-EPI creatinine equation, which does not include race as a factor us Ike Enamorado MD LAB BLOOD ORDERABLES Final Resul t [facility]
[address] [place] [address], [place] [phone] documented in this encounter Visit Diagnoses Diagnosis Bradycardia- Primary Other specified cardiac dysrhythmias Near syncope Bradycardia Other specified cardiac dysrhythmias Right lower quadrant abdominal pain documented in this encounter Admitting Diagnoses Diagnosis Bradycardia Other specified cardiac dysrhythmias documented in this encounter Administered Medications Inactive Administered Medications - up to 3 most recent administrations Medication Order MAR Action Action Date Dose Rate Site acetaminophen (TYLENOL) 160 MG/5ML oral solution 650 mg 650 mg, Oral, Every 4 Hours PRN, Mild Pain, Starting on 01/06/25 at 0341, If given for fever, use fever parameter: fever greater than 100.4 F Based on patient request - if ordered for moderate or severe pain, provider allows for administration of a medication prescribed for a lower pain scale. Do not exceed 4 grams of acetaminophen in a 24 hr period. Max dose of 2gm for AST/ALT greater than 120 units/L. If given for pain, use the following pain scale: Mild Pain = Pain Score of 1-3, CPOT 1-2 Moderate Pain = Pain Score of 4-6, CPOT 3-4 Severe Pain = Pain Score of 7-10, CPOT 5-8 acetaminophen (TYLENOL) suppository 650 mg 650 mg, Rectal, Every 4 Hours PRN, Mild Pain, Starting on 01/06/25 at 0341, If given for fever, use fever parameter: fever greater than 100.4 F Based on patient request - if ordered for moderate or severe pain, provider allows for administration of a medication prescribed for a lower pain scale. Do not exceed 4 grams of acetaminophen in a 24 hr period. Max dose of 2gm for AST/ALT greater than 120 units/L. If given for pain, use the following pain scale: Mild Pain = Pain Score of 1-3, CPOT 1-2 Moderate Pain = Pain Score of 4-6, CPOT 3-4 Severe Pain = Pain Score of 7-10, CPOT 5-8 acetaminophen (TYLENOL) tablet 650 mg 650 mg, Oral, Every 4 Hours PRN, Mild Pain, Starting on 01/06/25 at 0341, If given for fever, use fever parameter: fever greater than 100.4 F Based on patient request - if ordered for moderate or severe pain, provider allows for administration of a medication prescribed for a lower pain scale. Do not exceed 4 grams of acetaminophen in a 24 hr period. Max dose of 2gm for AST/ALT greater than 120 units/L. If given for pain, use the following pain scale: Mild Pain = Pain Score of 1-3, CPOT 1-2 Moderate Pain = Pain Score of 4-6, CPOT 3-4 Severe Pain = Pain Score of 7-10, CPOT 5-8 aspirin EC tablet 81 mg 81 mg, Oral, Daily, First dose on 01/06/25 at 0900, Do not crush or chew the capsules or tablets. The drug may not work as designed if the capsule or tablet is crushed or chewed. Swallow whole. Do not exceed 4 grams of aspirin in a 24 hr period. If given for pain, use the following pain scale: Mild Pain = Pain Score of 1-3, CPOT 1-2 Moderate Pain = Pain Score of 4-6, CPOT 3-4 Severe Pain = Pain Score of 7-10, CPOT 5-8 Given 01/06/2025 9:08 AM EDT 81 mg atorvastatin (LIPITOR) tablet 80 mg 80 mg, Oral, Nightly, First dose (after last modification) on 01/06/25 at 2100, Avoid grapefruit juice. bisacodyl (DULCOLAX) EC tablet 5 mg 5 mg, Oral, Daily PRN, Constipation, Use if polyethylene glycol is ineffective, Starting on 01/06/25 at 0341, Use if no bowel movement after 12 hours. Swallow whole. Do not crush, split, or chew tablet. bisacodyl (DULCOLAX) suppository 10 mg 10 mg, Rectal, Daily PRN, Constipation, Use if bisacodyl oral is ineffective, Starting on 01/06/25 at 0341, Use if no bowel movement after 12 hours. Hold for diarrhea enoxaparin sodium (LOVENOX) syringe 40 mg 40 mg, Subcutaneous, Daily, First dose on 01/06/25 at 0900, Give subcutaneous in abdomen only. Do not massage site after injection., Indications: VTE ProphylaxisIndications :VTE Prophylaxis Given 01/06/2025 9:08 AM EDT 40 mg Left Upper Abdomen fentaNYL citrate (PF) (SUBLIMAZE) injection 25 mcg 25 mcg, Intravenous, Once, On Wed01/05/25 at 2132, For 1 dose, Use filter needle to withdraw dose from ampule. Based on patient request - if ordered for moderate or severe pain, provider allows for administration of a medication prescribed for a lower pain scale. If given for pain, use the following pain scale: Mild Pain = Pain Score of 1-3, CPOT 1-2 Moderate Pain = Pain Score of 4-6, CPOT 3-4 Severe Pain = Pain Score of 7-10, CPOT 5-8 Given 01/05/2025 9:43 PM EDT 25 mcg HYDROmorphone (DILAUDID) injection 0.25 mg 0.25 mg, Intravenous, Once, On Wed01/05/25 at 2244, For 1 dose, Based on patient request - if ordered for moderate or severe pain, provider allows for administration of a medication prescribed for a lower pain scale. (HANNY) Caution: Look alike/sound alike drug alert If given for pain, use the following pain scale: Mild Pain = Pain Score of 1-3, CPOT 1-2 Moderate Pain = Pain Score of 4-6, CPOT 3-4 Severe Pain = Pain Score of 7-10, CPOT 5-8 Given 01/05/2025 10:56 PM EDT 0.25 mg iopamidol (ISOVUE-300) 61 % injection 100 mL 100 mL, Intravenous, Once in Imaging, On Wed01/05/25 at 2349, For 1 dose Given 01/05/2025 11:33 PM EDT 100 mL iopamidol (ISOVUE-300) 61 % injection 85 mL 85 mL, Intravenous, Once in Imaging, On 01/06/25 at 0107, For 1 dose Given 01/06/2025 12:58 AM EDT 85 mL ketorolac (TORADOL) injection 15 mg 15 mg, Intravenous, Once, On Wed01/05/25 at 2132, For 1 dose, Based on patient request - if ordered for moderate or severe pain, provider allows for administration of a medication prescribed for a lower pain scale. (BKC) If given for pain, use the following pain scale: Mild Pain = Pain Score of 1-3, CPOT 1-2 Moderate Pain = Pain Score of 4-6, CPOT 3-4 Severe Pain = Pain Score of 7-10, CPOT 5-8 Given 01/05/2025 9:43 PM EDT 15 mg lactated ringers infusion 75 mL/hr, Intravenous, Continuous, Starting on 01/06/25 at 0430, For 1 day Currently Infusing 01/06/2025 6:16 AM EDT 75 mL/hr 75 mL/hr New Bag 01/06/2025 3:58 AM EDT 75 mL/hr 75 mL/hr ondansetron (ZOFRAN) injection 4 mg 4 mg, Intravenous, Once, On Wed01/05/25 at 2132, For 1 dose, If multiple N/V medications ordered, use in the following order: Ondansetron, Prochlorperazine, Promethazine. Use PO unless patient refuses or patient unable to swallow. Given 01/05/2025 9:43 PM EDT 4 mg polyethylene glycol (MIRALAX) packet 17 g 17 g, Oral, Daily PRN, Constipation, Use if senna-docusate is ineffective, Starting on Wed01/06/25 at 0341, Use if no bowel movement after 12 hours. Mix in 6-8 ounces of water. Use 4-8 ounces of water, tea, or juice for each 17 gram dose. sennosides-docusate (PERICOLACE) 8.6-50 MG per tablet 2 tablet 2 tablet, Oral, 2 Times Daily PRN, Constipation, Starting on Wed01/06/25 at 0341, Start bowel management regimen if patient has not had a bowel movement after 12 hours. sodium chloride 0.9 % bolus 1,000 mL 1,000 mL, Intravenous, at 4,000 mL/hr, Administer over 0.25 Hours, Once, On Wed01/05/25 at 2132, For 1 dose New Bag 01/05/2025 9:43 PM EDT 1,000 mL 4000 mL/hr sodium chloride 0.9 % bolus 1,000 mL 1,000 mL, Intravenous, at 4,000 mL/hr, Administer over 0.25 Hours, Once, On Wed01/06/25 at 0012, For 1 dose New Bag 01/06/2025 12:04 AM EDT 1,000 mL 4000 mL/hr sodium chloride 0.9 % flush 10 mL 10 mL, Intravenous, As Needed, Line Care, Starting on Wed01/05/25 at 2032 sodium chloride 0.9 % flush 10 mL 10 mL, Intravenous, Every 12 Hours Scheduled, First dose on Wed01/06/25 at 0900 Given 01/06/2025 9:09 AM EDT 10 mL documented in this encounter Active and Recently Administered Medications Times are shown in EDT. Scheduled Medication Order 01/04/2025 01/05/2025 01/06/2025 aspirin EC tablet 81 mg 81 mg, Oral, Daily, First dose on 01/06/25 at 0900, Do not crush or chew the capsules or tablets. The drug may not work as designed if the capsule or tablet is crushed or chewed. Swallow whole. Do not exceed 4 grams of aspirin in a 24 hr period. If given for pain, use the following pain scale: Mild Pain = Pain Score of 1-3, CPOT 1-2 Moderate Pain = Pain Score of 4-6, CPOT 3-4 Severe Pain = Pain Score of 7-10, CPOT 5-8 0908 (Given - Provid er: Lanie Bob RN) atorvastatin (LIPITOR) tablet 80 mg 80 mg, Oral, Nightly, First dose (after last modification) on 01/06/25 at 2100, Avoid grapefruit juice. busPIRone (BUSPAR) tablet 10 mg 10 mg, Oral, Every 12 Hours Scheduled, First dose on 01/06/25 at 0900, Caution: Look alike/sound alike drug alert. Take with food. Avoid grapefruit juice., On hold since 01/06/2025 at 0341 until manually unheld 0341 (Held by provid er - Provider: Mart Ramires Jr., MD - Reason: Abnormal Vitals)0900 (Dose Auto Held)1301 (Unheld by provider - Provider: Automatic Discharge Provider) enoxaparin sodium (LOVENOX) syringe 40 mg 40 mg, Subcutaneous, Daily, First dose on 01/06/25 at 0900, Give subcutaneous in abdomen only. Do not massage site after injection., Indications: VTE Prophylaxis 907 (Given - Provid er: Lanie Bob RN) fentaNYL citrate (PF) (SUBLIMAZE) injection 25 mcg (COMPLETED) 25 mcg, Intravenous, Once, On Wed01/05/25 at 2132, For 1 dose, Use filter needle to withdraw dose from ampule. Based on patient request - if ordered for moderate or severe pain, provider allows for administration of a medication prescribed for a lower pain scale. If given for pain, use the following pain scale: Mild Pain = Pain Score of 1-3, CPOT 1-2 Moderate Pain = Pain Score of 4-6, CPOT 3-4 Severe Pain = Pain Score of 7-10, CPOT 5-8 2143 (Given - Provider: Helena Carreon RN) HYDROmorphone (DILAUDID) injection 0.25 mg (COMPLETED) 0.25 mg, Intravenous, Once, On Wed01/05/25 at 2244, For 1 dose, Based on patient request - if ordered for moderate or severe pain, provider allows for administration of a medication prescribed for a lower pain scale. (HANNY) Caution: Look alike/sound alike drug alert If given for pain, use the following pain scale: Mild Pain = Pain Score of 1-3, CPOT 1-2 Moderate Pain = Pain Score of 4-6, CPOT 3-4 Severe Pain = Pain Score of 7-10, CPOT 5-8 2256 (Given - Provider: Helena Carreon RN) iopamidol (ISOVUE-300) 61 % injection 100 mL (COMPLETED) 100 mL, Intravenous, Once in Imaging, On Wed01/05/25 at 2349, For 1 dose 2333 (Given - Provider: Gogo Hernandez) iopamidol (ISOVUE-300) 61 % injection 85 mL (COMPLETED) 85 mL, Intravenous, Once in Imaging, On Wed01/06/25 at 0107, For 1 dose 0058 (Given - Provid er: Gogo Hernandez) ketorolac (TORADOL) injection 15 mg (COMPLETED) 15 mg, Intravenous, Once, On Wed01/05/25 at 2132, For 1 dose, Based on patient request - if ordered for moderate or severe pain, provider allows for administration of a medication prescribed for a lower pain scale. (BKC) If given for pain, use the following pain scale: Mild Pain = Pain Score of 1-3, CPOT 1-2 Moderate Pain = Pain Score of 4-6, CPOT 3-4 Severe Pain = Pain Score of 7-10, CPOT 5-8 2143 (Given - Provider: Helena Carreon RN) ondansetron (ZOFRAN) injection 4 mg (COMPLETED) 4 mg, Intravenous, Once, On Wed01/05/25 at 2132, For 1 dose, If multiple N/V medications ordered, use in the following order: Ondansetron, Prochlorperazine, Promethazine. Use PO unless patient refuses or patient unable to swallow. 2143 (Given - Provider: Helena Carreon RN) sodium chloride 0.9 % bolus 1,000 mL (COMPLETED) 1,000 mL, Intravenous, at 4,000 mL/hr, Administer over 0.25 Hours, Once, On Wed01/05/25 at 2132, For 1 dose 2143 (New Bag - Provider: Helena Carreon RN)2300 (Stopped - Provider: Helena Carreon RN) sodium chloride 0.9 % bolus 1,000 mL (COMPLETED) 1,000 mL, Intravenous, at 4,000 mL/hr, Administer over 0.25 Hours, Once, On 01/06/25 at 0012, For 1 dose 0004 (New Bag - Provider: Helena Carreon RN)0115 (Stopped - Provider: Helena Carreon RN) sodium chloride 0.9 % flush 10 mL 10 mL, Intravenous, Every 12 Hours Scheduled, First dose on 01/06/25 at 0900 0909 (Given - Provid er: Lanie Bob RN) tamsulosin (FLOMAX) 24 hr capsule 0.4 mg 0.4 mg, Oral, Nightly, First dose on 01/06/25 at 0430, Do not crush or chew the capsules or tablets. The drug may not work as designed if the capsule or tablet is crushed or chewed. Swallow whole. If patient unable to swallow whole, contact pharmacy for alternative. 0412 (Not Given - Provider: Norah Zee RN - Reason: Other - Comment: PT TOOK HOME DOSE) Continuous Medication Order 01/04/2025 01/05/2025 01/06/2025 lactated ringers infusion 75 mL/hr, Intravenous, Continuous, Starting on 01/06/25 at 0430, For 1 day 0358 (New Bag - Prov ider: Norah Zee RN)0616 (Currently Infusing - Provider: Norah Zee RN)1301 (Due: Order Ending - Provider: Automatic Discharge Provider - Comment: [Order ends at this time. Document the following action when infusion is complete: Stopped]) PRN Medication Order 01/04/2025 01/05/2025 01/06/2025 acetaminophen (TYLENOL) 160 MG/5ML oral solution 650 mg(Linked Group 1) 650 mg, Oral, Every 4 Hours PRN, Mild Pain, Starting on 01/06/25 at 0341, If given for fever, use fever parameter: fever greater than 100.4 F Based on patient request - if ordered for moderate or severe pain, provider allows for administration of a medication prescribed for a lower pain scale. Do not exceed 4 grams of acetaminophen in a 24 hr period. Max dose of 2gm for AST/ALT greater than 120 units/L. If given for pain, use the following pain scale: Mild Pain = Pain Score of 1-3, CPOT 1-2 Moderate Pain = Pain Score of 4-6, CPOT 3-4 Severe Pain = Pain Score of 7-10, CPOT 5-8 acetaminophen (TYLENOL) suppository 650 mg(Linked Group 1) 650 mg, Rectal, Every 4 Hours PRN, Mild Pain, Starting on 01/06/25 at 0341, If given for fever, use fever parameter: fever greater than 100.4 F Based on patient request - if ordered for moderate or severe pain, provider allows for administration of a medication prescribed for a lower pain scale. Do not exceed 4 grams of acetaminophen in a 24 hr period. Max dose of 2gm for AST/ALT greater than 120 units/L. If given for pain, use the following pain scale: Mild Pain = Pain Score of 1-3, CPOT 1-2 Moderate Pain = Pain Score of 4-6, CPOT 3-4 Severe Pain = Pain Score of 7-10, CPOT 5-8 acetaminophen (TYLENOL) tablet 650 mg(Linked Group 1) 650 mg, Oral, Every 4 Hours PRN, Mild Pain, Starting on 01/06/25 at 0341, If given for fever, use fever parameter: fever greater than 100.4 F Based on patient request - if ordered for moderate or severe pain, provider allows for administration of a medication prescribed for a lower pain scale. Do not exceed 4 grams of acetaminophen in a 24 hr period. Max dose of 2gm for AST/ALT greater than 120 units/L. If given for pain, use the following pain scale: Mild Pain = Pain Score of 1-3, CPOT 1-2 Moderate Pain = Pain Score of 4-6, CPOT 3-4 Severe Pain = Pain Score of 7-10, CPOT 5-8 bisacodyl (DULCOLAX) EC tablet 5 mg(Linked Group 2) 5 mg, Oral, Daily PRN, Constipation, Use if polyethylene glycol is ineffective, Starting on 01/06/25 at 0341, Use if no bowel movement after 12 hours. Swallow whole. Do not crush, split, or chew tablet. bisacodyl (DULCOLAX) suppository 10 mg(Linked Group 2) 10 mg, Rectal, Daily PRN, Constipation, Use if bisacodyl oral is ineffective, Starting on 01/06/25 at 0341, Use if no bowel movement after 12 hours. Hold for diarrhea Calcium Replacement - Follow Nurse / BPA Driven Protocol Open Order & Select [facility] Electrolyte Replacement Protocol Algorithm to View Details ibuprofen (ADVIL,MOTRIN) tablet 400 mg 400 mg, Oral, Every 6 Hours PRN, Mild Pain, Starting on 01/06/25 at 0341, Based on patient request - if ordered for moderate or severe pain, provider allows for administration of a medication prescribed for a lower pain scale. Mucous membrane irritant. Do not crush or chew tablet or capsule unless administered through a feeding tube. If given for pain, use the following pain scale: Mild Pain = Pain Score of 1-3, CPOT 1-2 Moderate Pain = Pain Score of 4-6, CPOT 3-4 Severe Pain = Pain Score of 7-10, CPOT 5-8 Magnesium Standard Dose Replacement - Follow Nurse / BPA Driven Protocol Open Order & Select [facility] Electrolyte Replacement Protocol Algorithm to View Details nitroglycerin (NITROSTAT) SL tablet 0.4 mg 0.4 mg, Sublingual, Every 5 Minutes PRN, Chest Pain, Starting on 01/06/25 at 0341, If Pain Unrelieved After 3 Doses Notify MD May administer up to 3 doses per episode. Hold if SBP less than 100. ondansetron (ZOFRAN) injection 4 mg 4 mg, Intravenous, Every 6 Hours PRN, Nausea, Vomiting, Starting on 01/06/25 at 0341, If BOTH ondansetron (ZOFRAN) and promethazine (PHENERGAN) are ordered use ondansetron first and THEN promethazine IF ondansetron is ineffective. Phosphorus Replacement - Follow Nurse / BPA Driven Protocol Open Order & Select [facility] Electrolyte Replacement Protocol Algorithm to View Details polyethylene glycol (MIRALAX) packet 17 g(Linked Group 2) 17 g, Oral, Daily PRN, Constipation, Use if senna-docusate is ineffective, Starting on 01/06/25 at 0341, Use if no bowel movement after 12 hours. Mix in 6-8 ounces of water. Use 4-8 ounces of water, tea, or juice for each 17 gram dose. Potassium Replacement - Follow Nurse / BPA Driven Protocol Open Order & Select [facility] Electrolyte Replacement Protocol Algorithm to View Details sennosides-docusate (PERICOLACE) 8.6-50 MG per tablet 2 tablet(Linked Group 2) 2 tablet, Oral, 2 Times Daily PRN, Constipation, Starting on 01/06/25 at 0341, Start bowel management regimen if patient has not had a bowel movement after 12 hours. sodium chloride 0.9 % flush 10 mL 10 mL, Intravenous, As Needed, Line Care, Starting on Wed01/05/25 at 203 sodium chloride 0.9 % flush 10 mL 10 mL, Intravenous, As Needed, Line Care, Starting on 01/06/25 at 0341 sodium chloride 0.9 % infusion 40 mL 40 mL, Intravenous, at 100 mL/hr, As Needed, Line Care, Starting on 01/06/25 at 0341, Following administration of an IV intermittent medication, flush line with 40mL NS at 100mL/hr. Linked Groups Order Group 1: acetaminophen (TYLENOL) tablet 650 mgJump to med 650 mg, Oral, Every 4 Hours PRN, Mild Pain, Starting on 01/06/25 at 0341, If given for fever, use fever parameter: fever greater than 100.4 F Based on patient request - if ordered for moderate or severe pain, provider allows for administration of a medication prescribed for a lower pain scale. Do not exceed 4 grams of acetaminophen in a 24 hr period. Max dose of 2gm for AST/ALT greater than 120 units/L. If given for pain, use the following pain scale: Mild Pain = Pain Score of 1-3, CPOT 1-2 Moderate Pain = Pain Score of 4-6, CPOT 3-4 Severe Pain = Pain Score of 7-10, CPOT 5-8 Or acetaminophen (TYLENOL) 160 MG/5ML oral solution 650 mgJump to med 650 mg, Oral, Every 4 Hours PRN, Mild Pain, Starting on 01/06/25 at 0341, If given for fever, use fever parameter: fever greater than 100.4 F Based on patient request - if ordered for moderate or severe pain, provider allows for administration of a medication prescribed for a lower pain scale. Do not exceed 4 grams of acetaminophen in a 24 hr period. Max dose of 2gm for AST/ALT greater than 120 units/L. If given for pain, use the following pain scale: Mild Pain = Pain Score of 1-3, CPOT 1-2 Moderate Pain = Pain Score of 4-6, CPOT 3-4 Severe Pain = Pain Score of 7-10, CPOT 5-8 Or acetaminophen (TYLENOL) suppository 650 mgJump to med 650 mg, Rectal, Every 4 Hours PRN, Mild Pain, Starting on 01/06/25 at 0341, If given for fever, use fever parameter: fever greater than 100.4 F Based on patient request - if ordered for moderate or severe pain, provider allows for administration of a medication prescribed for a lower pain scale. Do not exceed 4 grams of acetaminophen in a 24 hr period. Max dose of 2gm for AST/ALT greater than 120 units/L. If given for pain, use the following pain scale: Mild Pain = Pain Score of 1-3, CPOT 1-2 Moderate Pain = Pain Score of 4-6, CPOT 3-4 Severe Pain = Pain Score of 7-10, CPOT 5-8 Group 2: sennosides-docusate (PERICOLACE) 8.6-50 MG per tablet 2 tabletJump to med 2 tablet, Oral, 2 Times Daily PRN, Constipation, Starting on 01/06/25 at 0341, Start bowel management regimen if patient has not had a bowel movement after 12 hours. And polyethylene glycol (MIRALAX) packet 17 gJump to med 17 g, Oral, Daily PRN, Constipation, Use if senna-docusate is ineffective, Starting on 01/06/25 at 0341, Use if no bowel movement after 12 hours. Mix in 6-8 ounces of water. Use 4-8 ounces of water, tea, or juice for each 17 gram dose. And bisacodyl (DULCOLAX) EC tablet 5 mgJump to med 5 mg, Oral, Daily PRN, Constipation, Use if polyethylene glycol is ineffective, Starting on 01/06/25 at 0341, Use if no bowel movement after 12 hours. Swallow whole. Do not crush, split, or chew tablet. And bisacodyl (DULCOLAX) suppository 10 mgJump to med 10 mg, Rectal, Daily PRN, Constipation, Use if bisacodyl oral is ineffective, Starting on 01/06/25 at 0341, Use if no bowel movement after 12 hours. Hold for diarrhea documented in this encounter Care Teams Predictive Maintenance Technician Relationship Specialty Start Date End Date Vandana Abrams APRN [address] [place] [phone] PCP - General Family Medicine 01/05/25 documented as of this encounter
--- OUTSIDE RECORDS SUMMARY | 2025-01-09 13:40 | XMS_ITS | Encounter Summary ---
Author Organization Healthcare Address [address] [place] [address] Care Team Providers Care Driver Merchandiser Name Role Phone Vandana Abrams APRN Primary Care Provider Jonathan Hutchinson MD Unavailable [phone] HatJuana walters LPN Unavailable Unavailable Reason for Referral * Consultation (Routine) - Authorized Specialty Diagnoses / Procedures Referred By Dain pringle Referred To Contact Diagnoses Hepatic flexure syndrome Shiraz Hsieh MD [address] [place] [address] Phone: tel: fax: Referral ID Status Reason Start Date Expiration Date V isits Requested Visits Authorized [id number] Authorized 01/09/2025 07/11/2026 1 1 Reason for Visit * Reason Comments Hepatic flexure syndrome Gastroesophageal reflux disease without esophagitis Irritable bowel syndrome, unspecified ty pe Encounter Details Date Type Department Care Team (Late st Contact Info) Description 01/09/2025 1:40 PM EDT [facility] Visit [facility] [address] [place] [address] Arturo Puentes MD [address] [place] [address] Hepatic flexure syndrome (Primary Dx) Social History Tobacco Use Types Packs/Day Years Used Date Smoking Tobacco: Never Passive Smoke Exposure: Never Smokeless Tobacco: Never Alcohol Use Standard Drinks/Week Comments Never 0 (1 standard drink = 0.6 oz pur e alcohol) Humiliation, Afraid, Rape, and Kick questionnair e Answer Date Recorded Within the last year, have y ou been afraid of your partner or ex-partner? No 06/20/2024 Within the last year, have y ou been humiliated or emotionally abused in other ways by your partner or ex-partner? No Within the last year, have y ou been kicked, hit, slapped, or otherwise physically hurt by your partner or ex-partner? No 06/20/2024 Within the last year, have y ou been raped or forced to have any kind of sexual activity by your partner or ex-partner? No 06/20/2024 Social Connection and Isolation Panel Answer Date Recorded In a typical week, how many times do you talk on the phone with family, friends, or neighbors? More than three times a week 01/10/2024 How often do you get togethe r with friends or relatives? More than three times a week 01/10/2024 How often do you attend chur or gnosticism services? More than 4 times per year 01/10/2024 Do you belong to any clubs o r organizations such as jehovah's witness groups, unions, fraternal or athletic groups, or school groups? Yes 01/10/2024 How often do you attend meet ings of the clubs or organizations you belong to? More than 4 times per year 01/10/2024 Are you , , di vorced, , never , or living with a partner? 01/10/2024 AUDIT-C Answer Date Recorded Q1: How often do you have a drink containing alc ohol? Patient declined 01/10/2024 Q2: How many drinks containi ng alcohol do you have on a typical day when you are drinking? Patient declined 01/10/2024 Q3: How often do you have si x or more drinks on one occasion? Patient declined 01/10/2024 PHQ-2 Answer Date Recorded Patient Health Questionnaire-2 Score 0 01/09/2025 [facility]ational Stress Questionnaire Answer Date Recorded Do you feel stress - tense, restless, nervous, or anxious, or unable to sleep at night because your mind is troubled all the time - these days? Not at all 01/10/2024 Exercise Vital Sign Answer Date Recorde d On average, how many days pe r week do you engage in moderate to strenuous exercise (like a brisk walk)? 4 days 01/10/2024 On average, how many minutes do you engage in exercise at this level? 40 min 01/10/2024 Hunger Vital Sign Answer Date Recorded Within the past 12 months, y ou worried that your food would run out before you got the money to buy more. Never true 06/20/19 25 Within the past 12 months, t he food you bought just didn't last and you didn't have money to get more. Never true 06/20/2024 PRAPARE - Transportation Answer Date Re corded In the past 12 months, has l ack of transportation kept you from medical appointments or from getting medications? No 06/01 In the past 12 months, has l ack of transportation kept you from meetings, work, or from getting things needed for daily living? No 06/20/2024 Housing Stability Vital Sign Answer Fady e Recorded In the last 12 months, was t here a time when you were not able to pay the mortgage or rent on time? No 01/10/2024 In the last 12 months, how many places have you lived? 1 01/10/2024 In the last 12 months, was t here a time when you did not have a steady place to sleep or slept in a [place] (including now)? No 01/10/2024 PHQ-9 Answer Date Recorded Patient Health Questionnaire-9 Score 0 01/09/2025 Housing Stability Vital Sign Answer Fady e Recorded In the last 12 months, was t here a time when you were not able to pay the mortgage or rent on time? No 06/20/2024 In the past 12 months, how m any times have you moved where you were living? 0 06/20/2024 At any time in the past 12 m [facility], were you homeless or living in a [place] (including now)? No 06/20/2024 Safety and Environment Answer Date Yaya rded Do you worry that your child may have been physically abused? Patient unable to answer 01/10/2024 Do you worry that your child may have been sexually abused? Patient unable to answer 01/10/2024 Are there any guns kept in o r around your home or where your child spends time? Patient unable to answer 01/10/2024 Guns Unloaded or Locked Away Not on file 04/2024 Utilities Answer Date Recorded In the past 12 months has [employer], gas, oil, or water company threatened to shut off services in your home? No 06/20/2024 PHQ-2A Answer Date Recorded Patient Health Questionnaire-2 Score 0 04/27/2023 Sex and Gender Information Value Date Recorded Sex Assigned at Not on file Legal Sex Male 7:40 PM EDT Gender Identity Not on file Sexual Orientation Not on file documented as of this encounter Last Filed Vital Signs Vital Sign Reading Time Taken Comments Blood Pressure 122/73 01/09/2025 1:43 PM EDT Pulse 56 01/09/2025 1:43 PM EDT Temperature 36.5 C (97.7 F) 01/09/2025 1:43 PM EDT Respiratory Rate - - Oxygen Saturation 99% 01/09/2025 1:43 PM EDT Inhaled Oxygen Concentration - - Weight 87.5 kg (192 lb 14.4 oz) 01/09/2025 1:43 PM EDT Height 177.8 cm (5' 10 ) 01/09/2025 1:43 PM EDT Body Mass Index 27.68 01/09/2025 1:43 PM EDT documented in this encounter Functional Status * Over the past 2 weeks, how often have you been bothered by any of the following problems? Question Answer Date of Assessment Author Little interest or pleasure in doing things Not at all 01/09/2025 1:49 PM EDT Du, Tempest A Feeling down, depressed, or hopeless Not at all 01/09/2025 1:49 PM EDT Du, Tempest A Patient Health Questionnaire -2 Score 0 01/09/2025 1:49 PM EDT Du, Tempest A * Question Answer Date of Assessment Author Trouble falling or staying asleep, or sleeping too much Not at all 01/09/2025 1:49 PM EDT Du, Tempest A Feeling tired or having sheri le energy Not at all 01/09/2025 1:49 PM EDT Rona Du A Poor appetite or overeating Not at all 01/09/2025 1: 49 PM EDT Rona Du A Feeling bad about yourself - or that you are a failure or have let yourself or your family down Not at all 01/09/2025 1:49 PM EDT Rona Fitzgerald Trouble concentrating on thi ngs, such as reading the newspaper or watching television Not at all 01/09/2025 1:49 PM EDT Rona Du A Moving or speaking so slowly that other people could have noticed? Or the opposite - being so fidgety or restless that you have been moving around a lot more than usual. Not at all 01/09/2025 1:49 PM EDT Rona Du A Thoughts that you would be b [place] off or hurting yourself in some way Not at all 01/09/2025 1:49 PM EDT Rona Du A Patient Health Questionnaire -9 Score 0 01/09/2025 1:49 PM EDT Rona Du A * How difficult have these problems made it for you to do your work, take care of things at home, or get along with other people? Answer Date of Assessment Author Not difficult at all 01/09/2025 1:49 PM EDT Rona Fitzgerald documented as of this encounter Miscellaneous Notes * Progress Notes - Arturo Puentes MD - 01/09/2025 1:40 PM EDT Outpatient Gastroenterology, Hepatology and Nutrition Clinic Note: Patient: Neo Reardon Date of : 1960 Subjective: History of present illness: Mr. Neo Reardon is a 64 y.o. year old male being seen today in clinic for follow-up for hepatic flexure syndrome. The patient reported experiencing chronic right lower abdominal pain since 2018, with the recent worsening starting three weeks ago. The pain was described as sharp and pressure-like, with a severityof 5 to 6 out of 10 during the exacerbation. The patient noted that the pain comes and goes withoutany specific triggers. The patient managed the pain without medications until it intensified last week, leading to a hospital visit. At the hospital, the patient received fentanyl and hydromorphone for pain relief. Imaging and urinalysis performed at the hospital did not reveal any inflammation or infection. The patient did not report taking any additional pain medications such as Tylenol or Ibuprofen post- hospital visit. Pertinent negatives include no identified food triggers and no new medications started recently. Review of Systems: ROS Otherwise Normal Past Medical History[1] Surgical History[2] Family History[3] Family history reviewed and non-contributory Social History[4] Allergies[5] Current Medications[6] Objective: Temp: [36.5 ??C (97.7 ??F)] 36.5 ??C (97.7 ??F) Heart Rate: [56] 56 BP: (122)/(73) 122/73 Weight: 87.5 kg (192 lb 14.4 oz) Body mass index is 27.68 kg/m??. Physical Examination: General Appearance: Awake, alert, oriented x 3, in no apparent distress Head: Normocephalic, atraumatic Neck: Neck supple, no adenopathy. Lungs: Lungs clear to auscultation with no wheezing, rales, or rhonchi Heart: Regular rate and rhythm Abdomen: Abdomen soft, non-tender . Bowel sounds normal. No rebound or guarding. No ascites, no organomegaly. Extremities: No lower extremity edema. Neurologic: Mental status intact. No gross neurologic deficits. Laboratory: Reviewed Imaging: Reviewed Assessment and Plan: is a 64 y.o. year old male being seen today in clinic for follow-up for hepatic flexure syndrome. 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 His most recent colonoscopy in 2020 revealed a few polyps. He has a family history of colon cancer (mother diagnosed in her 70s) and has been undergoing colorectal cancer screening every 5 years since age 43. 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 Current medications include PRN Miralax, PRN simethicone, daily omeprazole, and Beano. RECOMMENDATIONS: - A trial of antispasmodics with Dicyclomine - Continue Simethicone , PPI and Miralax D/w Dr Hsieh Return to clinic in 3-4 months Arturo Puentes MD GI Fellow, PGY4 [facility] [1] Past Medical History: Diagnosis Date Abnormal brain scan Abnormal brain scan Abnormal weight loss Weight loss, abnormal Allergic rhinitis due to pollen Allergic rhinitis due to pollen Anemia, unspecified Anemia Angina pectoris Bradycardia Cataract Chest pain, unspecified Chest pain Cholelithiasis Conversions - Other Dyslipidemia Conversions - Other Headache Coronary artery disease 2018 Diarrhea, unspecified Bloody diarrhea Dysphagia, unspecified Dysphagia Dysphonia Dysphonia Encounter for screening for cardiovascular disorders Treadmill stress test negative for angina pectoris GERD (gastroesophageal reflux disease) Heart disease Hyperlipidemia, unspecified Hyperlipemia Nevus, non-neoplastic Telangiectasia Other hypertrophic disorders of the skin Skin tag Other specified disorders of nose and nasal sinuses Nasal obstruction Pain in unspecified shoulder Shoulder pain Sleep apnea Unspecified injury of head, initial encounter Head injury [2] Past Surgical History: Procedure Laterality Date ARTERIAL STENT PLACEMENT N/A Arterial stent placement from uBeam BACK SURGERY N/A Back Surgery from [facility] CERVICAL FUSION CERVICAL SPINE SURGERY CHOLECYSTECTOMY COLONOSCOPY CORONARY STENT PLACEMENT LUMBAR LAMINECTOMY NASAL SEPTUM SURGERY SINUS SURGERY SPINE SURGERY 1996 WISDOM TOOTH EXTRACTION N/A Oral Surgery Tooth Extraction [place] Tooth from uBeam [3] Family History Problem Relation Name Age of Onset Colon cancer Other Colon cancer Mother Elana Reardon Cancer Mother Elana Reardon Asthma Father Neo Pritchard Caron, Sr, Cardiac disorder Father Neo Pritchard Caron, Sr, Conversions - Other Father Neo Pritchard Caron, Sr, Hearing deficit Alcohol abuse Father Neo Pritchard Caron, Sr, Hearing loss Father Neo NobleTrino Reardon, Sr, Heart disease Father Neo Pritchard Caron, Sr, [4] Social History Tobacco Use Smoking status: Never Passive exposure: Never Smokeless tobacco: Never Vaping Use Vaping status: Never Used Substance Use Topics Alcohol use: Never Drug use: Never [5] Allergies Allergen Reactions Morphine And Codeine Itching, Rash and Unknown - Patient states they do not know rxn details [6] Current Outpatient Medications: Bkjhd-T-Pefveygndhjyq (BEANO PO), TAKE 1 TABLET 3 times daily take this medication with meals, Disp: , Rfl: ascorbic acid (Vitamin C) 250 MG tablet, Take 1 tablet (250 mg) by mouth 1 (one) time each day., Disp: , Rfl: Aspirin 81 MG capsule, Take 1 capsule by mouth 1 (one) time each day., Disp: 90 capsule, Rfl: 3 atorvastatin (Lipitor) 80 MG tablet, Take 1 tablet (80 mg) by mouth 1 (one) time each day., Disp: 90 tablet, Rfl: 3 busPIRone (Buspar) 10 MG tablet, Take 1 tablet (10 mg) by mouth 2 (two) times a day., Disp: 180 tablet, Rfl: 3 chlorpheniramine (Chlor-Trimeton) 4 MG tablet, Antihistamine, Disp: , Rfl: Coenzyme Q10 (CoQ10) 200 MG capsule, Take 200 mg by mouth 1 (one) time each day., Disp: 90 capsule,Rfl: 3 doxepin (SINEquan) 25 MG capsule, Take 1 capsule (25 mg) by mouth every night., Disp: 90 capsule, Rfl: 3 imiquimod (Aldara) 5 % cream, as needed., Disp: , Rfl: iron polysaccharides (Nu-Iron,Niferex) 150 MG capsule, Take 1 capsule (150 mg) by mouth 1 (one) time each day., Disp: 90 capsule, Rfl: 1 Multiple Vitamins-Minerals (MULTI FOR HIM 50+ PO), TAKE 1 CAPSULE Daily, Disp: , Rfl: omeprazole (PriLOSEC) [address] capsule, Take 1 capsule (20 mg) by mouth 1 (one) time each day., Disp: 90 capsule, Rfl: 3 pseudoephedrine ER (Sudafed-12 Hour) 120 MG 12 hr tablet, TAKE 1 TABLET EVERY 12 HOURS NEEDED., Disp: , Rfl: Sacrosidase (Sucraid) 8500 UNIT/ML solution, Dissolve 2mL in 2-ounces of water before a meal. Drink1/2 beofre and 1/2 during each meal and sugary snack., Disp: 385.71 mL, Rfl: 0 simethicone (Mylicon) 125 MG chewable tablet, Chew 1 tablet (125 mg)., Disp: , Rfl: tacrolimus (Protopic) 0.1 % ointment, , Disp: , Rfl: tamsulosin (Flomax) 0.4 MG 24 hr capsule, TAKE 1 CAPSULE BY MOUTH EVERY NIGHT AT BEDTIME, Disp: 30 capsule, Rfl: 6 Cosigned by Shiraz Hsieh MD at 01/13/2025 10:08 AM EDT Associated attestation - Shiraz Hsieh MD - 01/13/2025 10:08 AM EDT I saw and evaluated the patient with the resident/fellow. I discussed the case with the resident/fellow and agree with the findings and plan as documented. documented in this encounter Plan of Treatment Upcoming Encounters Date Type Department Care Team (Late st Contact Info) Description 03/01/2025 12:45 PM EDT Clinical Support [facility] [address], [address] [place] [address] 04/24/2025 9:30 AM EST Clinical Support [facility] [address] [place] [address] 04/24/2025 10:00 AM EST Office Visit [facility] Urology [address] [place] [address] Jonathan Hutchinson MD [address] [place] [address] 06/05/2025 1:20 PM EST Office Visit [facility] Medicine Specialties [address] [place] [address] Arturo Puentes MD [address] [place] [address] 10/25/2025 11:00 AM EDT Office Visit [facility] Medicine Specialties [address] [place] [address] Indio Stephens MD [address] [place] [address] 11/26/2025 7:45 AM EDT Office Visit [facility] [address] [place] [address] William Beltran MD [address] [place] [address] 01/28/2026 10:00 AM EDT Office Visit [facility] [address] [place] [id number] Vandana Abrams, NATIONAL ACCOUNT MANAGER [address] [place] [address] Scheduled Referrals Name Type Priority Associated Diagnoses Orde r Schedule Follow Up GI Outpatient Referral Routine Hepatic flexure syndrome Expected: 05/11/2025, Expires: 02/09/2026 documented as of this encounter Visit Diagnoses Diagnosis Hepatic flexure syndrome- Primary documented in this encounter Additional Health Concerns Assessment Noted Time PHQ-9 Depression Total Score: 0 01/10/20 1:49 PM EDT A fall risk assessment has been complete d for the patient 01/09/2025 1:49 PM EDT A Body Mass Index follow-up plan has been documented for the patient 01/09/2025 6:41 PM EDT documented as of this encounter Care Teams Driver Merchandiser Relationship Specialty Start Date End Date Vandana Abrams, NATIONAL ACCOUNT MANAGER [address] [place] [address] PCP - General Internal Medicine 08/13/22 Jonathan Hutchinson MD [address] [place] [address] Surgeon Urology 04/25/24 Juana Tena LPN VALUE-[employer]ED [place] [address] TCM Nurse 01/08/25 02/07/25 documented as of this encounter
--- OUTSIDE RECORDS SUMMARY | 2025-01-25 08:40 | XMS_ITS | Encounter Summary ---
Author Organization [facility] Address [address] [place] [address] Care Team Providers Care Diesel Technician Name Role Phone Vandana Abrams APRN Primary Care Provider Jonathan Hutchinson MD Unavailable Juana Tena SEEDLING PULLER Unavailable Unavailable Dominique Goldsmith SEEDLING PULLER Unavailable Unavailab le Reason for Visit * Reason Comments Annual Exam Pt was seen in ED on 01/05 for Abdominal Pain and would like to talk about this with PCP. Encounter Details Date Type Department Care Team (Late st Contact Info) Description 01/25/2025 8:40 AM EDT Office Visit [facility] [address] [place] [address] Vandana Abrams APRN [address] [facility] [address] [place] [address] Healthcare maintenance (Primary Dx); Medicare annual wellness visit, subsequent; Sleep difficulties; Coronary artery disease involving robinson coronary artery of robinson heart without angina pectoris; Hepatic flexure syndrome; Routine general medical examination at a health care facility Social History Tobacco Use Types Packs/Day Years Used Date Smoking Tobacco: Never Passive Smoke Exposure: Never Smokeless Tobacco: Never Tobacco Cessation:Counseling Given: Yes Alcohol Use Standard Drinks/Week Comments Never 0 (1 standard drink = 0.6 oz pur e alcohol) Social Connection and Isolation Panel Answer Date Recorded In a typical week, how many times do you talk on the phone with family, friends, or neighbors? More than three times a week 01/10/2024 How often do you get togethe r with friends or relatives? More than three times a week 01/10/2024 How often do you attend [facility] ch or church services? More than 4 times per year 01/10/2024 Do you belong to any clubs o r organizations such as quaker groups, unions, fraternal or athletic groups, or [...] Date Recorded Patient Health Questionnaire-2 Score 0 01/25/2025 PHQ-9 Answer Date Recorded Patient Health Questionnaire-9 Score 0 01/25/2025 Humiliation, Afraid, Rape, and Kick questionnair e Answer Date Recorded Within the last year, have y ou been afraid of your partner or ex-partner? No 01/25/2025 Within the last year, have y ou been humiliated or emotionally abused in other ways by your partner or ex-partner? No Within the last year, have y ou been kicked, hit, slapped, or otherwise physically hurt by your partner or ex-partner? No 01/25/2025 Within the last year, have y ou been raped or forced to have any kind of sexual activity by your partner or ex-partner? No 01/25/2025 Social Connection and Isolation Panel Answer Date Recorded In a typical week, how many times do you talk on the phone with family, friends, or neighbors? More than three times a week 01/18/2025 How often do you get togethe r with friends or relatives? More than three times a week 01/18/2025 How often do you attend chur ch or church services? More than 4 times per year 01/18/2025 Do you belong to any clubs o r organizations such as quaker groups, unions, fraternal or athletic groups, or school groups? Yes 01/18/2025 How often do you attend meet ings of the clubs or organizations you belong to? More than 4 times per year 01/18/2025 Are you , , di vorced, , never , or living with a partner? 01/18/2025 AUDIT-C Answer Date Recorded Q1: How often do you have a drink containing alcohol? Never 01/18/2025 Q2: How many drinks containi ng alcohol do you have on a typical day when you are drinking? Patient does not drink Q3: How often do you have si x or more drinks on one occasion? Never 01/18/2025 [facility] - Occupational Stress Questionnaire Answer Date Recorded Do you feel stress - tense, restless, nervous, or anxious, or unable to sleep at night because your mind is troubled all the time - these days? Not at all 01/18/2025 Exercise Vital Sign Answer Date Recorde d On average, how many days pe r week do you engage in moderate to strenuous exercise (like a brisk walk)? 7 days 01/18/2025 On average, how many minutes do you engage in exercise at this level? 30 min 01/18/2025 Hunger Vital Sign Answer Date Recorded Within the past 12 months, y ou worried that your food would run out before you got the money to buy more. Never true 01/26/20 25 Within the past 12 months, t he food you bought just didn't last and you didn't have money to get more. Never true 01/25/2025 PRAPARE - Transportation Answer Date Re corded In the past 12 months, has l ack of transportation kept you from medical appointments or from getting medications? No 12/30 In the past 12 months, has l ack of transportation kept you from meetings, work, or from getting things needed for daily living? No 01/25/2025 Housing Stability Vital Sign Answer Fady e Recorded In the last 12 months, was t here a time when you were not able to pay the mortgage or rent on time? No 01/25/2025 In the past 12 months, how m any times have you moved where you were living? 0 01/25/2025 At any time in the past 12 m [facility], were you homeless or living in a custodial (including now)? No 01/25/2025 [facility] Utilities Answer Date Recorded In the past 12 months has [employer] electric, gas, oil, or water company threatened to shut off services in your home? No 01/25/2025 Safety and Environment Answer Date Yaya rded [...] or Locked Away Not on file 04/2024 PHQ-2A Answer Date Recorded Patient Health Questionnaire-2 Score 0 04/27/2023 Sex and Gender Information Value Date Recorded Sex Assigned at Not on file Legal Sex Male 7:40 PM EDT Gender Identity Not on file Sexual Orientation Not on file documented as of this encounter Last Filed Vital Signs Vital Sign Reading Time Taken Comments Blood Pressure 117/69 01/25/2025 9:01 AM EDT Pulse 54 01/25/2025 9:01 AM EDT Temperature 37.2 C (98.9 F) 01/25/2025 9:01 AM EDT Respiratory Rate - - Oxygen Saturation 98% 01/25/2025 9:01 AM EDT Inhaled Oxygen Concentration - - Weight 84.4 kg (186 lb) 01/25/2025 9:01 AM EDT Height 180.3 cm (5' 11 ) 01/25/2025 9:01 AM EDT Body Mass Index 25.94 01/25/2025 9:01 AM EDT documented in this encounter Functional Status * Over the past 2 weeks, how often have you been bothered by any of the following problems? Question Answer Date of Assessment Author Little interest or pleasure in doing things Not at all 01/25/2025 8:49 AM EDT Beronica Graff Feeling down, depressed, or hopeless Not at all 01/25/2025 8:49 AM EDT Beronica Graff Patient Health Questionnaire -2 Score 0 01/25/2025 8:49 AM EDT Beronica Graff * Question Answer Date of Assessment Author Trouble falling or staying a sleep, or sleeping too much Not at all 01/25/2025 8:49 AM EDT Beronica Graff Feeling tired or having sheri le energy Not at all 01/25/2025 8:49 AM EDT Beronica Graff Poor appetite or overeating Not at all 01/25/2025 8: 49 AM EDT Beronica Graff Feeling bad about yourself - or that you are a failure or have let yourself or your family down Not at all 01/25/2025 8:49 AM EDT Beronica Graff Trouble concentrating on thi ngs, such as reading the newspaper or watching television Not at all 01/25/2025 8:49 AM EDT Beronica Graff Moving or speaking so slowly that other people could have noticed? Or the opposite - being so fidgety or restless that you have been moving around a lot more than usual. Not at all 01/25/2025 8:49 AM EDT Beronica Graff Thoughts that you would be b [place] off or hurting yourself in some way Not at all 01/25/2025 8:49 AM EDT Beronica Graff Patient Health Questionnaire -9 Score 0 01/25/2025 8:49 AM EDT Beronica Graff * Calculated C-SSRS Risk Score (Lifetime/Recent) Answer Date of Assessment Author No Risk Indicated 01/25/2025 8:49 AM EDT Beronica Graff * How difficult have these problems made it for you to do your work, take care of things at home, or get along with other people? Answer Date of Assessment Author Not difficult at all 01/25/2025 8:49 AM EDT Beronica Heredia * Question Answer Date of Assessment Author 1. Wish to be (Past 1 Month) No 025 8:49 AM EDT Beronica Graff 2. Non-Specific Active Suici mercy Thoughts (Past 1 Month) No 01/25/2025 8:49 AM EDT Aquiles Graff i 6. Suicidal Behavior (Lifetime) No 8:49 AM EDT Beronica Graff documented as of this encounter Miscellaneous Notes * Addendum Note - Daniela Tobin - 01/25/2025 8:40 AM EDTAddended by: DANIELA TOBIN on: 01/25/2025 02:55 PM Modules accepted: Orders * Progress Notes - Vandana Abrams APRN - 01/25/2025 8:40 AM EDT Subjective Neo Reardon HPI Mr. Reardon is 64 y.o. male who presents today for their annual well visit. Last physical with labs: Last Colonoscopy: upcoming Immunizations needed: up to date; flu when available Dental: regularly Vision: regularly Pt has allergies - takes sudafed PRN or chlorpheniramine PRN. Has upcoming appointment with Consulting Solution Director next week. Pt has sucrase - isomaltase deficiency; hepatic flexure syndrome- uses mylicon PRN; uses bentyl PRN(new since ED visit). Managed by GI. Has upcoming colonoscopy in May 2025. Pt has had ED visit and overnight stay a few weeks ago (pain scale got up to 6/10)- pain has been persistent (first noted in 2018) - was initially seen by Dr. Trevino - taking miralax daily, but has some pressure regularly. Has f/u with Angelo RAHMAN at . ED did CT abdomen (no acute findings) - had vasovagal response after contrast so stayed overnight. R/o Cardiac during that stay - CT chest normal. He'll typically wake up feeling fine and starts having issues after lunchtime whether he eats lunch or not. Exercise - specifically walking alleviates the pain. He walks 3-5 miles a day for the most part - does weights as well. Pt uses buspirone regularly for GI issues. GERD - takes omeprazole 20mg daily. Pt has hx of CAD and HLD - on atorvastatin 80mg daily, had stents placed; takes coQ10 daily as ewll. PT is on doxepin 25mg nightly for sleep. Pt is on tamsulosin nightly -managed by Urology. Had LUTS and negative biopsy in 2022; monitoring PSA regularly. The below portions of the patient's health information and history were reviewed in this encounter and updated as appropriate: Visit Vitals BP 117/69 Pulse 54 Temp 37.2 ??C (98.9 ??F) Ht 1.803 m (5' 11 ) Wt 84.4 kg (186 lb) SpO2 98% BMI 25.94 kg/m?? Smoking Status Never Past Medical History[1] Surgical History[2] Family History[3] Social History[4] Current Outpatient Medications Medication Instructions Essnv-X-Srrjwmzcoafhv (BEANO PO) TAKE 1 TABLET 3 times daily take this medication with meals ascorbic acid (VITAMIN C) 250 mg, ZZ Daily RT Aspirin 81 MG capsule 1 capsule, Oral, Daily atorvastatin (LIPITOR) 80 mg, Oral, Daily busPIRone (BUSPAR) 10 mg, Oral, 2 times daily chlorpheniramine (Chlor-Trimeton) 4 MG tablet Antihistamine CoQ10 200 mg, Oral, Daily dicyclomine (BENTYL) 10 mg, Oral, 4 times daily before meals and nightly, Take with meals and at bedtime doxepin (SINEQUAN) 25 mg, Oral, Nightly imiquimod (Aldara) 5 % cream As needed iron polysaccharides (NU-IRON,NIFEREX) 150 mg, Oral, Daily Multiple Vitamins-Minerals (MULTI FOR HIM 50+ PO) TAKE 1 CAPSULE Daily omeprazole (PRILOSEC) 20 mg, Oral, Daily pseudoephedrine ER (Sudafed-12 Hour) 120 MG 12 hr tablet TAKE 1 TABLET EVERY 12 HOURS NEEDED. simethicone (MYLICON) 125 mg tacrolimus (Protopic) 0.1 % ointment tamsulosin (FLOMAX) 0.4 mg, Oral, Nightly Allergies[5] All medications have been reviewed today. Review of Systems Constitutional: Negative for appetite change, chills, fatigue and unexpected weight change. HENT: Positive for congestion and postnasal drip. Negative for ear pain, hearing loss, rhinorrhea, sinus pressure, sneezing, sore throat, tinnitus and trouble swallowing. Eyes: Negative for pain and visual disturbance. Respiratory: Negative for cough, chest tightness, shortness of breath and wheezing. Cardiovascular: Negative for chest pain, palpitations and leg swelling. Gastrointestinal: Positive for abdominal pain and nausea. Negative for blood in stool, constipation, diarrhea and vomiting. Endocrine: Negative for polyuria. Genitourinary: Negative for difficulty urinating, flank pain, frequency, hematuria, testicular painand urgency. Musculoskeletal: Negative for arthralgias, gait problem and myalgias. Skin: Negative for color change and rash. Neurological: Negative for dizziness, tremors, weakness, light-headedness, numbness and headaches. Psychiatric/Behavioral: Negative for behavioral problems, sleep disturbance (stable on meds) and suicidal ideas. Objective Vitals: 01/25/25 0901 BP: 117/69 Pulse: 54 Temp: 37.2 ??C (98.9 ??F) SpO2: 98% Physical Exam Vitals and nursing note reviewed. Constitutional: Appearance: Normal appearance. HENT: Head: Normocephalic and atraumatic. Right Ear: Tympanic membrane, ear canal and external ear normal. Left Ear: Tympanic membrane, ear canal and external ear normal. Nose: Nose normal. Mouth/Throat: Mouth: Mucous membranes are moist. Pharynx: Oropharynx is clear. Eyes: Extraocular Movements: Extraocular movements intact. Conjunctiva/sclera: Conjunctivae normal. Pupils: Pupils are equal, round, and reactive to light. Neck: Thyroid: No thyroid mass, thyromegaly or thyroid tenderness. Trachea: Trachea normal. Cardiovascular: Rate and Rhythm: Normal rate and regular rhythm. Heart sounds: Normal heart sounds. Pulmonary: Effort: Pulmonary effort is normal. Breath sounds: Normal breath sounds. Chest: Chest wall: No mass or swelling. Abdominal: General: Bowel sounds are normal. Palpations: Abdomen is soft. Tenderness: There is no abdominal tenderness. Musculoskeletal: General: No swelling or tenderness. Normal range of motion. Cervical back: Normal range of motion. Right lower leg: No edema. Left lower leg: No edema. Lymphadenopathy: Cervical: No cervical adenopathy. Upper Body: Right upper body: No supraclavicular adenopathy. Left upper body: No supraclavicular adenopathy. Skin: General: Skin is warm and dry. Capillary Refill: Capillary refill takes less than 2 seconds. Neurological: General: No focal deficit present. Mental Status: He is alert and oriented to person, place, and time. Mental status is at baseline. Motor: Motor function is intact. Coordination: Coordination is intact. Gait: Gait is intact. Psychiatric: Attention and Perception: Attention normal. Mood and Affect: Mood normal. Speech: Speech normal. Behavior: Behavior normal. Behavior is cooperative. Thought Content: Thought content normal. Judgment: Judgment normal. Assessment Neo was seen today for annual exam. Diagnoses and all orders for this visit: Healthcare maintenance Comments: - pending labs - age appropriate screenings up to date: counseling provided on diet/exericse, self care, vaccinations and all health manintance screening Orders: - CBC W/O Differential - Comprehensive Metabolic Panel, Plasma - Free T4, Plasma - Hemoglobin A1c - Lipid Profile, Plasma - Prostate Cancer Screen, Serum - Thyroid Stimulating Hormone, Plasma - Vitamin B12, Serum - Vitamin D 25 Hydroxy Medicare annual wellness visit, subsequent Comments: - completed Sleep difficulties Comments: - cont doxepin; working well Orders: - doxepin (SINEquan) 25 MG capsule; Take 1 capsule by mouth nightly. Coronary artery disease involving robinson coronary artery of robinson heart without angina pectoris Comments: - stable cont care with Cardiology PRN - cont. atorvastatin and aspirin Orders: - atorvastatin (Lipitor) 80 MG tablet; Take 1 tablet by mouth daily. Hepatic flexure syndrome Comments: - referral to GI pending Orders: - omeprazole (PriLOSEC) [address] capsule; Take 1 capsule by mouth daily. - busPIRone (Buspar) 10 MG tablet; Take 1 tablet by mouth 2 times a day. Vandana Abrams, TREY [1] Past Medical History: Diagnosis Date Abnormal brain scan Abnormal brain scan Abnormal weight loss Weight loss, abnormal Allergic rhinitis due to pollen Allergic rhinitis due to pollen Anemia, unspecified Anemia Angina pectoris Bradycardia Cataract Chest pain, unspecified Chest pain Cholelithiasis Conversions - Other Dyslipidemia Conversions - Other Headache Coronary artery disease 2019 Diarrhea, unspecified Bloody diarrhea Dysphagia, unspecified Dysphagia [...] STENT PLACEMENT N/A Arterial stent placement from [facility] BACK SURGERY N/A Back Surgery from [facility] CERVICAL FUSION CERVICAL SPINE SURGERY CHOLECYSTECTOMY COLONOSCOPY CORONARY STENT PLACEMENT LUMBAR LAMINECTOMY NASAL SEPTUM SURGERY SINUS SURGERY SPINE SURGERY 1996 WISDOM TOOTH EXTRACTION N/A Oral Surgery Tooth Extraction [place] Tooth from [facility] [3] Family History Problem Relation Name Age of Onset Colon cancer Other Colon cancer Mother Elana Reardon Cancer Mother Elana Reardon Asthma Father Neo Reardon, Sr, Cardiac disorder Father Neo Reardon, Sr, Conversions - Other Father Neo Reardon, Sr, Hearing deficit Alcohol abuse Father Neo Reardon, Sr, Hearing loss Father Neo Reardon, Sr, Heart disease Father Neo Reardon, Sr, [4] Social History Tobacco Use Smoking status: Never Passive exposure: Never Smokeless tobacco: Never Vaping Use Vaping status: Never Used Substance Use Topics Alcohol use: Never Drug use: Never [5] Allergies Allergen Reactions Morphine And Codeine Itching, Rash and Unknown - Patient states they do not know rxn details documented in this encounter Plan of Treatment Upcoming Encounters Date Type Department Care Team (Late st Contact Info) Description 03/01/2025 12:45 PM EDT Clinical Support Professional [facility] [address], [address] [place] [address] 04/24/2025 9:30 AM EST Clinical Support [facility] [address], [address] [place] [address] 04/24/2025 10:00 AM EST Office Visit [facility] Urology [address], [address] [place] [address] Jonathan Hutchinson MD [address] [place] [address] 06/05/2025 1:20 PM EST Office Visit [facility] Specialties [address] [place] [address] Arturo Puentes MD [address] [place] [address] 10/25/2025 11:00 AM EDT Office Visit [facility] [address] [place] [address] Indio Stephens MD [address] [place] [address] 11/26/2025 7:45 AM EDT Office Visit [facility] [address] [place] [address] William Beltran MD [address] [facility] [address] [place] [address] 01/28/2026 10:00 AM EDT Office Visit [facility] [address] [place] [address] Vandana Abrams, CORRECTIONS COUNSELOR [address] [facility] [address] [place] [address] documented as of this encounter Procedures Procedure Name Priority Date/Time Associated Diagnosis Comments PROSTATE CANCER SCREEN, SERUM Routine 01/25/2025 10:36 AM EDT Healthcare maintenance VITAMIN D 25 HYDROXY Routine 01/25/2025 10:36 AM EDT Healthcare maintenance CBC W/O DIFFERENTIAL Routine 01/25/2025 10:36 AM EDT Healthcare maintenance TSH Routine 01/25/2025 10:36 AM EDT Healthcare maintenance FREE T4, PLASMA Routine 01/25/2025 10:36 AM EDT Healthcare maintenance HEMOGLOBIN A1C Routine 01/25/2025 10:36 AM EDT Healthcare maintenance VITAMIN B12, SERUM Routine 01/25/2025 10 :36 AM EDT Healthcare maintenance LIPID PROFILE, PLASMA Routine 01/25/2025 10:36 AM EDT Healthcare maintenance COMPREHENSIVE METABOLIC PANEL, PLASMA Routine 01/25/2025 10:36 AM EDT Healthcare maintenance EXTRA TUBE GOLD TOP Routine 01/25/2025 1 0:32 AM EDT Routine general medical examination at a health care facility EXTRA TUBES Routine 01/25/2025 10:32 AM EDT Routine general medical examination at a health care facility documented in this encounter Results * Vitamin D 25 Hydroxy (01/25/2025 10:36 AM EDT) Vitamin D 25 Hydroxy 44.5 20.0 - 80.0 ng/mL 01/25/2025 1:55 PM EDT [facility] Blood Venous blood specimen / Unknown Venipuncture / Unknown 01/25/2025 10:36 AM EDT 01/25/2025 1:02 PM EDT Narrative [facility] - 01/25/2025 1:55 PM EDT Testing performed on Vital Boiler Fitter, standardized against NIST SRM 2972. When testing samples from patients whose predominant form of vitamin D is vitamin D2, such as patients receiving vitamin D2 supplementation, results that are subtherapeutic should be confirmed with another method, such as LC-MS/MS, before being used for patient management. Vitamin D, 25-Hydroxy reference range, age 18 years and up: Deficiency: <12 ng/mL Insufficiency: 12 to 19 ng/mL Sufficiency: 20 to 80 ng/mL Possible toxicity: >100 ng/mL us Vandana Abrams APRN LAB BLOOD ORDERABLES Final Result [facility] [address] [place] [address] * Vitamin B12, Serum (01/25/2025 10:36 AM EDT) Vitamin B12, Serum 681 210 - 1,033 pg/mL 01/25/2025 1:34 PM EDT [facility] Blood Venous blood specimen / Unknown Venipuncture / Unknown 01/25/2025 10:36 AM EDT 01/25/2025 1:01 PM EDT Vandana Abrams APRN LAB BLOOD ORDERABLES Final Result Performing Organization Address City/[facility]/[place] [address] * Thyroid Stimulating Hormone, Plasma (01/25/2025 10:36 AM EDT) Pathologist [facility] Thyroid Stimulating Hormone, Plasma 1.37 0.40 - 4.20 uIU/mL 01/25/2025 1:31 PM EDT [facility] Blood Venous blood specimen / Unknown Venipuncture / Unknown 01/25/2025 10:36 AM EDT 01/25/2025 1:03 PM EDT Vandana Abrams APRN LAB BLOOD ORDERABLES Final Result Performing Organization Address [facility] [place] [address] * (ABNORMAL) Prostate Cancer Screen, Serum (01/25/2025 10:36 AM EDT) Pathologist [facility] Prostate Cancer Screen, Serum 5.78(H) 0.00 - 4.50 ng/mL 01/25/2025 1:34 PM EDT [facility] Blood Venous blood specimen / Unknown Venipuncture / Unknown 01/25/2025 10:36 AM EDT 01/25/2025 1:01 PM EDT Narrative [facility] - 01/25/2025 1:34 PM EDT Performed by Britt electrochemiluminescent immunoassay which is standardized against the PSA [place] Reference Standard (WHO 96/). Results obtained with different test methods or kits cannot be used interchangeably. Vandana Brando Jose Alberto YANG LAB BLOOD ORDERABLES Final Result [facility] [address] [place] [address] * Lipid Profile, Plasma (01/25/2025 10:36 AM EDT) Cholesterol, Plasma 119 <200 mg/dL 01/25/2025 1:31 PM EDT [facility] Comment: Cholesterol Reference Range (age >17 years): Desirable <200 mg/dL Borderline 200 to 239 mg/dL Undesirable >239 mg/dL HDL 68 >=40 mg/dL 01/25/2025 1:31 PM EDT [facility] Comment: HDL Cholesterol Reference Ranges (age >17 years): Female, acceptable > or = 50 mg/dL Male, acceptable > or = 40 mg/dL Triglycerides, Plasma 44 <150 mg/dL 01/25/2025 1:31 PM EDT [facility] Comment: Triglyceride Reference Range (age >17 years): Desirable: <150 mg/dL Borderline high: 150 to 199 mg/dL High: 200 to 499 mg/dL Very high: >499 mg/dL Increased risk of pancreatitis: >1000 mg/dL Cholesterol/HDL Ratio 2 01/25/2025 1:31 PM EDT [facility] LDL, Calculated 40 <100 mg/dL 1:31 PM EDT [facility] Comment: LDL Cholesterol Reference Range (age >17 years): Optimal: <100 mg/dL Near or above optimal: 100 - 129 mg/dL Borderline high: 130 - 159 mg/dL High: 160 - 189 mg/dL Very high: >189 mg/dL LDL Cholesterol Reference Range (age <18 years): Desirable: <110 mg/dL Borderline: 110 - 129 mg/dL Undesirable: >130 mg/dL LDL Cholesterol is calculated using the Churchill/NIH equation. Fasting greater than or equal to 12 hours? Yes 01/25/2025 1:31 PM EDT [facility] Blood Venous blood specimen / Unknown Venipuncture / Unknown 01/25/2025 10:36 AM EDT 01/25/2025 1:03 PM EDT Vandana Valdezard CORRECTIONS COUNSELOR LAB BLOOD ORDERABLES Final Result Performing Organization Address City/[facility]/ZIP Co de Phone Number [facility] [address] [place] [address] * Hemoglobin A1c (01/25/2025 10:36 AM EDT) Hemoglobin A1c 5.5 <5.7 % 01/25/2025 1:35 PM EDT [facility] Blood Venous blood specimen / Unknown Venipuncture / Unknown 01/25/2025 10:36 AM EDT 01/25/2025 1:01 PM EDT Narrative [facility] - 01/25/2025 1:35 PM EDT HA1C Interpretive Data: Diagnosis of Diabetes: Diabetic > or = 6.5% Pre-diabetic 5.7 to 6.4% Non-diabetic < or = 5.6% Glycemic Targets for Type I and Type II Diabetics: Non- Adults <7.0% Adults <6.0% Children and Adolescents <7.5% Source: Citizen Of [place] Diabetes Association. Standards of medical care in diabetes,2017. Diabetes Care.2017:40 (suppl 1):S1-S135. Vandana Michaels Abrams CORRECTIONS COUNSELOR LAB BLOOD ORDERABLES Final Result Performing Organization Address [facility] Co de Phone Number [facility] [address] [place] [address] * Free T4, Plasma (01/25/2025 10:36 AM EDT) Free T4, Plasma 1.1 0.8 - 1.7 ng/dL 01/25/2025 1:31 PM EDT [facility] Blood Venous blood specimen / Unknown Venipuncture / Unknown 01/25/2025 10:36 AM EDT 01/25/2025 1:03 PM EDT Vandana Valdezard CORRECTIONS COUNSELOR LAB BLOOD ORDERABLES Final Result Performing Organization Address City/[facility]/ZIP Co de Phone Number [facility] [address] [place] [address] * (ABNORMAL) Comprehensive Metabolic Panel, Plasma (01/25/2025 10:36 AM EDT) [facility] Glucose, Plasma 85 74 - 99 mg/dL 01/25/2025 1:31 PM EDT [facility] BUN, Plasma 14 8 - 23 mg/dL 01/25/2025 1:31 PM EDT [facility] Creatinine, Plasma 0.91 0.70 - 1.20 mg/dL 01/25/2025 1:31 PM EDT [facility] BUN/Creatinine Ratio 15 01/25/2025 1:31 PM EDT [facility] Sodium, Plasma 139 136 - 145 mmol/L 01/25/2025 1:31 PM EDT [facility] Potassium, Plasma 4.6 3.6 - 4.9 mmol/L 01/25/2025 1:31 PM EDT [facility] Chloride, Plasma 102 97 - 107 mmol/L 01/25/2025 1:31 PM EDT [facility] CO2, Plasma 25 22 - 29 mmol/L 01/25/2025 1:31 PM EDT [facility] Anion Gap 12 6 - 16 mmol/L 01/25/2025 1:31 PM EDT [facility] Total Calcium, Plasma 9.7 8.9 - 10.2 mg/dL 01/25/2025 1:31 PM EDT [facility] Total Protein 7.4 6.3 - 7.9 g/dL 01/25/2025 1:31 PM EDT [facility] Albumin, Plasma 4.7 3.5 - 5.2 g/dL 01/25/2025 1:31 PM EDT [facility] AST, Plasma 50 10 - 50 U/L 01/25/2025 1:31 PM EDT [facility] ALT, Plasma 73(H) 10 - 50 U/L 01/25/2025 1:31 PM EDT [facility] Alkaline Phosphatase, Plasma 103 40 - 115 U/L 01/25/2025 1:31 PM EDT [facility] Total Bilirubin, Plasma 1.0 0.2 - 1.1 mg/dL 01/25/2025 1:31 PM EDT [facility] eGFRcr 93.0 mL/min/1.7 3m*2 01/25/2025 1:31 PM EDT [facility] Comment:Reported eGFRcr in m L/min/1.73m2 is based the CKD-EPI 2020 equation that does not use a race coefficient. Blood Venous blood specimen / Unknown Venipuncture / Unknown 01/25/2025 10:36 AM EDT 01/25/2025 1:03 PM EDT Vandana Abrams APRN LAB BLOOD ORDERABLES Final Result [facility] [address] [place] [address] * CBC W/O Differential (01/25/2025 10:36 AM EDT) WBC Count 4.81 3.70 - 10.30 10*3/uL LAB HEMATOLOGY METHOD 01/25/2025 1:13 PM EDT [facility] RBC Count 4.79 4.60 - 6.10 10*6/uL LAB HEMATOLOGY METHOD 01/25/2025 1:13 PM EDT [facility] HGB 14.8 13.7 - 17.5 g/dL LAB HEMATOLOGY METHOD 01/25/2025 1:13 PM EDT [facility] HCT 43.9 40.0 - 51.0 % LAB HEMATOLOGY METHOD 01/25/2025 1:13 PM EDT [facility] Platelet Count 238 155 - 369 10*3/uL LAB HEMATOLOGY METHOD 01/25/2025 1:13 PM EDT [facility] MCV 92 79 - 98 fL LAB HEMATOLOGY METHOD 01/25/2025 1:13 PM EDT [facility] MCH 30.9 26.0 - 32.0 pg LAB HEMATOLOGY METHOD 01/25/2025 1:13 PM EDT [facility] MCHC 33.7 30.7 - 35.5 g/dL LAB HEMATOLOGY METHOD 01/25/2025 1:13 PM EDT [facility] RDW 12.7 11.5 - 14.5 % LAB HEMATOLOGY METHOD 01/25/2025 1:13 PM EDT [facility] MPV 10.4 8.8 - 12.5 fL LAB HEMATOLOGY METHOD 01/25/2025 1:13 PM EDT [facility] nRBC 0.0 <=0.0 per 100 WBCs LAB HEMATOLOGY METHOD 01/25/2025 1:13 PM EDT [facility] Blood Venous blood specimen / Unknown Venipuncture / Unknown 01/25/2025 10:36 AM EDT 01/25/2025 1:02 PM EDT us Vandana Abrams APRN LAB BLOOD ORDERABLES Final Result Performing Organization Address City/[facility] Co de Phone Number [facility] [address] [place] [address] * Gold Top (01/25/2025 10:32 AM EDT) Extra Hold for add-ons 01/25/2025 5:01 PM EDT [facility] Comment:Auto resulted. Blood Venous blood specimen / Unknown Venipuncture / Unknown 01/25/2025 10:32 AM EDT 01/25/2025 2:55 PM EDT us Vandana Abrams APRN LAB BLOOD ORDERABLES Final Result Performing Organization Address [facility] de Phone Number [facility] [address] [place] [address] documented in this encounter Visit Diagnoses Diagnosis Healthcare maintenance- Primary Medicare annual wellness visit, subsequent Sleep difficulties Coronary artery disease involving robinson coronary artery of robinson heart without angina pectoris Hepatic flexure syndrome Routine general medical examination at a health care facility documented in this encounter Additional Health Concerns Assessment Noted Time PHQ-9 Depression Total Score: 0 01/26/20 25 8:49 AM EDT A fall risk assessment has been complete d for the patient 01/25/2025 8:59 AM EDT A Body Mass Index follow-up plan has been documented for the patient 01/25/2025 10:55 AM EDT documented as of this encounter Care Teams Diesel Technician Relationship Specialty Start Date End Date Vandana Abrams APRN [address] [facility] [address] [place] [phone] PCP - General Internal Medicine 08/13/22 Jonathan Hutchinson MD [address] [place] [address] Surgeon Urology 04/25/24 Juana Tena LPN [employer] [place] [address] TCM Nurse 01/08/25 02/07/25 Dominique Goldsmith LPN VALUE-BASED TRANSFORMATION PROGRAM TCM Nurse 01/18/25 documented as of this encounter
--- OUTSIDE RECORDS SUMMARY | 2025-02-06 09:00 | XMS_ITS | Encounter Summary ---
Author Organization [facility] Address [address] [place] [address] Care Team Providers Care Baffle Installer Name Role Phone Vandana Abrams APRN Primary Care Provider [phone] Jonathan Hutchinson MD Unavailable [phone] Juana Tena COMBAT CONTROL MANAGER Unavailable Unavailable Dominique Goldsmith COMBAT CONTROL MANAGER Unavailable Unavailab le Reason for Visit * Reason Comments Allergic Rhinitis * Consultation (Routine) - Closed Specialty Diagnoses / Procedures Referred By Contac t Referred To Contact Allergy and Immunology / Allergy Diagnoses Allergic rhinitis due to pollen, unspecified seasonality Vandana Abrams, EFFICIENCY EXPERT [address] [place] [address] Phone: tel: fax: [facility] [address], [address] [place] [address] Phone: tel: fax: Referral ID Status Reason Start Date Expiration Date V isits Requested Visits Authorized [id number] Closed Specialty Services Required 10/20/2024 04/21/2026 1 1 Encounter Details Date Type Department Care Team ([facility] st Contact Info) Description 02/06/2025 9:00 AM EDT Consult [facility] [address], [address] [place] [address] Jacqui Jimenes MD [address] [place] [address] Chronic rhinitis (Primary Dx); Allergic conjunctivitis of both eyes; Dysfunction of both eustachian tubes; Obstructive sleep apnea Social History Tobacco Use Types Packs/Day Years Used Date Smoking Tobacco: Never Passive Smoke Exposure: Never Smokeless Tobacco: Never Tobacco Cessation:Counseling Given: Not Answered Alcohol Use Standard Drinks/Week Comments Never 0 [...] week 01/10/2024 How often do you attend [facility] or scientology services? More than 4 times per year 01/10/2024 Do you belong to any clubs o r organizations such as rastafari groups, unions, fraternal or athletic groups, or [...] Date Recorded Patient Health Questionnaire-2 Score 0 02/06/2025 PHQ-9 Answer Date Recorded Patient Health Questionnaire-9 Score 0 02/06/2025 Humiliation, Afraid, Rape, and Kick questionnair e [...] 01/18/2025 How often do you attend chur or scientology services? More than 4 times per year 01/18/2025 Do you belong to any clubs o r organizations such as rastafari groups, unions, fraternal or athletic groups, or [...] more drinks on one occasion? Never 01/18/2025 [facility]ational Stress Questionnaire Answer Date Recorded [...] any time in the past 12 m [facility], were you homeless or living in a care home (including now)? No 01/25/2025 [facility] Utilities Answer Date Recorded In the [...] Sign Reading Time Taken Comments Blood Pressure 110/70 02/06/2025 8:55 AM EDT Pulse 58 02/06/2025 8:55 AM EDT Temperature 37 C (98.6 F) 02/06/2025 8:55 AM EDT Respiratory Rate - - Oxygen Saturation - - Inhaled Oxygen Concentration - - Weight 87.2 kg (192 lb 3.9 oz) 02/06/2025 8:55 A M EDT Height 180.3 cm (5' 11 ) 02/06/2025 8:55 AM EDT Body Mass Index 26.81 02/06/2025 8:55 AM EDT documented in this encounter Functional Status * Over the past 2 weeks, how often have you been bothered by any of the following problems? Question Answer Date of Assessment Author Little interest or pleasure in doing things Not at all 02/06/2025 9:02 AM EDT Chhaya Castañeda Feeling down, depressed, or hopeless Not at all 02/06/2025 9:02 AM EDT Chhaya Castañeda Patient Health Questionnaire -2 Score 0 02/06/2025 9:02 AM EDT Chhaya Castañeda * Question Answer Date of Assessment Author Trouble falling or staying a sleep, or sleeping too much Not at all 02/06/2025 9:02 AM CAIRDADT Chhaya Castañeda Feeling tired or having sheri le energy Not at all 02/06/2025 8:56 AM Isis Washington Poor appetite or overeating Not at all 02/06/2025 8: 56 AM Isis [place] Feeling bad about yourself - or that you are a failure or have let yourself or your family down Not at all 02/06/2025 8:56 AM Kena Washington Trouble concentrating on thi ngs, such as reading the newspaper or watching television Not at all 02/06/2025 8:56 AM Isis [place] Moving or speaking so slowly that other people could have noticed? Or the opposite - being so fidgety or restless that you have been moving around a lot more than usual. Not at all 02/06/2025 8:56 AM Isis Washington Thoughts that you would be b [place] off or hurting yourself in some way Not at all 02/06/2025 8:56 AM Isis [place] Patient Health Questionnaire -9 Score 0 02/06/2025 8:56 AM Isis [place] * How difficult have these problems made it for you to do your work, take care of things at home, or get along with other people? Answer Date of Assessment Author Not difficult at all 02/06/2025 9:02 AM EDT Chhaya Jacobson documented as of this encounter Miscellaneous Notes * Progress Notes - Jacqui Jimenes MD - 02/06/2025 9:00 AM EDT Neo Reardon presents today for consultation as requested by Vandana Abrams APRN regarding assessment of Chief Complaint Patient presents with Allergic Rhinitis Chart Reviewed. Subjective History of Presenting Problem: HPI Neo Reardon is a 64 y.o. male who presents with AR symptoms. Lifelong. Patient is complaining of severe allergy symptoms in the spring. 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 Was skin tested 35 yrs ago, in [facility], was on shots then. Found to be helpful. Denies asthma history. Complaining of runny nose, itchy eyes, fullness in ears. Has chronic nasal congestion. Father with allergies, COPD. Indoor dogs, x 2, no flares. Denies recurrent sinusitis. Has hepatic flexural syndrome. Review of Systems: Review of Systems All other systems reviewed and are negative. Medications: All medications have been reviewed and updated today. Current Outpatient Medications: Current Outpatient Medications Medication Instructions [id number]-R-[id number] (BEANO PO) TAKE 1 TABLET 3 times [...] ointment tamsulosin (FLOMAX) 0.4 mg, Oral, Nightly Allergies: Allergies[1] Surgical History: Surgical History[2] Past Medical History: Past Medical History[3] Family History: Family History[4] Past Social History: Social History Social History Narrative Caffeine use Marital Status: Objective Vitals: Vitals: 02/06/25 0855 BP: 110/70 BP Location: Left arm Patient Position: Sitting BP Cuff Size: Large adult Pulse: 58 Temp: 37 ??C (98.6 ??F) TempSrc: Temporal Weight: 87.2 kg (192 lb 3.9 oz) Height: 1.803 m (5' 11 ) Physical Exam: Physical Exam Vitals reviewed. Constitutional: Appearance: Normal appearance. He is normal weight. HENT: Head: Normocephalic and atraumatic. Right Ear: Tympanic membrane, ear canal and external ear normal. Left Ear: Tympanic membrane, ear canal and external ear normal. Nose: Congestion present. Cardiovascular: Rate and Rhythm: Regular rhythm. Heart sounds: Normal heart sounds. Pulmonary: Effort: Pulmonary effort is normal. Breath sounds: Normal breath sounds. Skin: General: Skin is warm. Neurological: Mental Status: He is alert. Assessment/Plan Diagnosis Plan 1. Chronic rhinitis Panel C Allergy Testing 2. Allergic conjunctivitis of both eyes 3. Dysfunction of both eustachian tubes 4. Obstructive sleep apnea Medical Decision Making/Plan: Start rhinocort AQ 1 spray per nostril daily. Schedule AST to inhalants. Will discuss further treatment after testing. Jacqui Jimenes MD [1] Allergies Allergen Reactions Morphine And Codeine Itching, Rash and Unknown - Patient states they do not know rxn details [2] Past Surgical History: Procedure Laterality Date ARTERIAL STENT PLACEMENT N/A Arterial stent placement from [facility] BACK SURGERY N/A Back Surgery from [facility] CERVICAL FUSION CERVICAL SPINE SURGERY CHOLECYSTECTOMY COLONOSCOPY CORONARY STENT PLACEMENT LUMBAR LAMINECTOMY NASAL SEPTUM SURGERY SINUS SURGERY SPINE SURGERY 1996 WISDOM TOOTH EXTRACTION N/A Oral Surgery Tooth Extraction [place] Tooth from [facility] [3] Past Medical History: Diagnosis Date Abnormal brain [...] injury of head, initial encounter Head injury [4] Family History Problem Relation Name Age of Onset Colon cancer Other Colon cancer Mother Elana Reardon Cancer Mother Elana Reardon Asthma Father Neo Reardon, Sr, Cardiac disorder Father Neo Reardon, Sr, Conversions - Other Father Neo Reardon, Sr, Hearing deficit Alcohol abuse Father Neo Reardon, Sr, Hearing loss Father Neo Reardon, Sr, Heart disease Father Neo Reardon, Sr, documented in this encounter Plan of Treatment Upcoming Encounters Date Type Department Care Team (Late st Contact Info) Description 03/01/2025 12:45 PM EDT Clinical Support Professional [facility] [address], [address] [place] [address] 04/24/2025 9:30 AM EST Clinical Support [facility] [address], [address] [place] [address] 04/24/2025 10:00 AM EST Office Visit [facility] [address], [address] [place] [address] oJnathan Hutchinson MD [address] [place] [address] 06/05/2025 1:20 PM EST Office Visit [facility] Medicine Specialties [address], [address] [place] [address] Arturo Puentes MD [address] [place] [address] 10/25/2025 11:00 AM EDT Office Visit [facility] [address], [address] [place] [phone] Indio Stephens MD [address] [place] [address] 11/26/2025 7:45 AM EDT Office Visit [facility] [address] [place] [address] William Beltran MD [address] [facility] [address] [place] [address] 01/28/2026 10:00 AM EDT Office Visit [facility] Care [address] [place] [phone] Vandana Abrams APRN [address] [facility] [address] [place] [address] Scheduled Orders Name Type Priority Associated Diagnoses Orde r Schedule Panel C Allergy Testing Procedures Routine Chronic rhinitis Ordered: 02/06/2025 documented as of this encounter Visit Diagnoses Diagnosis Chronic rhinitis- Primary Allergic conjunctivitis of both eyes Other chronic allergic conjunctivitis Dysfunction of both eustachian tubes Obstructive sleep apnea Obstructive sleep apnea (adult) (pediatric) documented in this encounter Additional Health Concerns Assessment Noted Time PHQ-9 Depression Total Score: 0 02/07/20 25 8:56 AM EDT A fall risk assessment has been complete d for the patient 02/06/2025 8:55 AM EDT A Body Mass Index follow-up plan has been documented for the patient 02/06/2025 12:35 PM EDT documented as of this encounter Care Teams Baffle Installer Relationship Specialty Start Date End Date Vandana Abrams APRN [address] [facility] [address] [place] [address] PCP - General Internal Medicine 08/13/22 Jonathan Hutchinson MD [address] [place] [phone] Surgeon Urology 04/25/24 Juana Tena LPN VALUE-[employer] [place] [address] TCM Nurse 01/08/25 02/07/25 Dominique Goldsmith LPN VALUE-BASED TRANSFORMATION PROGRAM TCM Nurse 01/18/25 documented as of this encounter
--- OUTSIDE RECORDS SUMMARY | 2025-02-08 19:00 | XMS_ITS | Encounter Summary ---
Author Organization Healthcare Address [address] [place] [address] Care Team Providers Care Telehealth Nurse Educator Name Role Phone Vandana Abrams APRN Primary Care Provider Jonathan Hutchinson MD Unavailable Dominique Goldsmith LPN Unavailable Unavailab le Encounter Details Date Type Department Care Team (Late st Contact Info) Description 02/08/2025 7:00 PM EDT Immunization [facility] [address] [place] [address] Flu vaccine need (Primary Dx) Social History Tobacco Use Types [...] 01/10/2024 How often do you attend chur ch or zoroastrianism services? More than 4 times per year 01/10/2024 Do you belong to any clubs o r organizations such as bahai groups, unions, fraternal or athletic groups, or [...] How often do you attend chur or zoroastrianism services? More than 4 times per year 01/18/2025 Do you belong to any clubs o r organizations such as bahai groups, unions, fraternal or athletic groups, or [...] more drinks on one occasion? Never 01/18/2025 [facility] - [facility] [...] any time in the [facility] you [facility] or living in a fci (including now)? No 01/25/2025 [facility] Utilities Answer Date Recorded In the past [...] on file documented as of this encounter Plan of Treatment Upcoming Encounters Date Type Department Care Team (Late st Contact Info) Description 03/01/2025 12:45 PM EDT Clinical Support Professional [facility] [address], [address] [place] [address] 04/24/2025 9:30 AM EST Clinical Support [facility] [address], [address] [place] [phone] 04/24/2025 10:00 AM EST Office Visit [facility] Urology [address], [address] [place] [phone] Jonathan Hutchinson MD [address] [place] [address] 06/05/2025 1:20 PM EST Office Visit [facility] Medicine Specialties [address], [address] [place] [phone] Arturo Puentes MD [address] [place] [address] 10/25/2025 11:00 AM EDT Office Visit [facility] Medicine Specialties [address], [address] [place] [phone] Indio Stephens MD [address] [place] [address] 11/26/2025 7:45 AM EDT Office Visit [facility] [address] [place] [address] William Beltran MD [address] [place] [address] 01/28/2026 10:00 AM EDT Office Visit [facility] Urgent Care [address] [place] [address] Vandana Abrams, PILOT SUBMERSIBLE [address] [place] [address] documented as of this encounter Visit Diagnoses Diagnosis Flu vaccine need- Primary documented in this encounter Additional Health Concerns Assessment Noted Time PHQ-9 Depression Total Score: 0 02/07/20 8:56 AM EDT A fall risk assessment has been complete d for the patient 02/06/2025 8:55 AM EDT A Body Mass Index follow-up plan has been documented for the patient 02/06/2025 12:35 PM EDT documented as of this encounter Care Teams Telehealth Nurse Educator Relationship Specialty Start Date End Date Vandana Abrams APRN [address] [facility] [address] [place] [address] PCP - General Internal Medicine 08/13/22 Jonathan Hutchinson MD [address] [place] [phone] Surgeon Urology 04/25/24 Dominique Goldsmith LPN VALUE-BASED TRANSFORMATION PROGRAM TCM Nurse 01/18/25 documented as of this encounter
--- NOTE | 2025-02-27 08:58 | XR_ITS ---
FINAL REPORT CLINICAL HISTORY: Please assess fecal burden-stool in right colon COMPARISON: None FINDINGS: A single view of the abdomen was obtained. There is a nonobstructive bowel gas pattern. There is a large amount of stool noted throughout the colon consistent with constipation. There are no abnormally dilated loops of small bowel. There are no abnormal calcifications. IMPRESSION: Large stool burden. Reviewed, Interpreted and Dictated by Los Lane MD Transcribed by Shannan Thomas Authenticated and [facility]
--- OUTSIDE RECORDS SUMMARY | 2025-02-27 08:58 | XMS_ITS | Encounter Summary ---
Author Organization [facility] Address [address] [place] [address] Care Team Providers Care Health Underwriter Name Role Phone Vandana Abrams APRN Primary Care Provider [phone] Mariela Yepez SENIOR PRODUCT DEVELOPMENT ENGINEER Unavailable UnavailJonathan Hand MD Unavailable Juana Tena SENIOR PRODUCT DEVELOPMENT ENGINEER Unavailable Unavailable Dominique Goldsmith SENIOR PRODUCT DEVELOPMENT ENGINEER Unavailable Unavailab le Reason for Visit * Reason Onset Date Comments Med Refill 02/24/2023 Encounter Details Date Type Department Care Team (Late st Contact Info) Description 02/24/2023 Refill [facility] Ur[facility] Care [address] [place] [address] Vandana Abrams APRN [address] [facility] [address] [place] [address] Sleep difficulties Social History Tobacco Use Types Packs/Day Years Used Date Smoking Tobacco: Never Passive Smoke Exposure: Never Smokeless Tobacco: Never Alcohol Use Standard Drinks/Week Comments Not Currently 0 (1 standard drink = 0.6 oz pur e alcohol) PHQ-2 Answer Date Recorded Patient Health Questionnaire-2 Score 0 01/25/2023 Sex and Gender Information Value Date Recorded Sex Assigned at Not on file Legal Sex Male 7:40 PM EDT Gender Identity Not on file Sexual Orientation Not on file documented as of this encounter Miscellaneous Notes * Telephone Encounter - Vandana Abrams APRN - 03/03/2023 8:47 AM EDT Already refilled documented in this encounter Plan of Treatment Upcoming Encounters Date Type Department Care Team (Late st Contact Info) Description 03/01/2025 12:45 PM EDT Clinical Support [facility] [address], [address] [place] [address] 04/24/2025 9:30 AM EST [facility] [address], [address]nd [place] [address] 04/24/2025 10:00 AM EST Office Visit [facility] Urology [address], [facility] [place] [address] Jonathan Hutchinson MD [address] [facility] [address] [place] [address] 06/05/2025 1:20 PM EST Office Visit [facility] Medicine Specialties [address], [address]nd [place] [address] Arturo Puentes MD [address] [place] [address] 10/25/2025 11:00 AM EDT Office Visit [facility] Medicine Specialties [address], [address] [place] [address] Indio Stephens MD [address] [place] [address] 11/26/2025 7:45 AM EDT Office Visit [facility] Eye Care [address] [place] [address] William Beltran MD [address] [address] 01/28/2026 10:00 AM EDT Office Visit [facility] [address] [place] [address] Vandana Abrams APRN [address] [facility] [address] [place] [address] documented as of this encounter Visit Diagnoses Diagnosis Sleep difficulties documented in this encounter Additional Health Concerns Infection Onset Date Last Indicated Resolved Time Influenza 06/20/2024 06/20/2024 07/18/2024 5:24 AM EST Assessment Noted Time A fall risk assessment has been complete d for the patient 01/25/2023 2:47 PM EDT A Body Mass Index follow-up plan has been documented for the patient 01/25/2023 4:17 PM EDT documented as of this encounter Care Teams Health Underwriter Relationship Specialty Start Date End Date Vandana Abrams, REAL ESTATE CLOSING COORDINATOR [address] [facility] [address] [place] [address] PCP - General Internal Medicine 08/13/22 Mariela Yepez LPN VALUE-BASED TRANSFORMATION PROGRAM TCM Nurse 01/10/24 02/09/24 Jonathan Hutchinson MD [address] [facility] [address] [place] [address] Surgeon Urology 04/25/24 Juana Tena LPN [employer] [address] TCM Nurse 01/08/25 02/07/25 Dominique Goldsmith LPN VALUE-BASED TRANSFORMATION PROGRAM TCM Nurse 01/18/25 documented as of this encounter
--- OUTSIDE RECORDS SUMMARY | 2025-02-27 08:59 | XMS_ITS | Encounter Summary ---
Author Organization [facility] Address [address] [place] [address] Care Team Providers Care Netsuite Consultant Name Role Phone Vandana Abrams APRN Primary Care Provider [phone] Jonathan Hutchinson MD Unavailable Juana Tena LPN Unavailable Unavailable Dominique Goldsmith LPN Unavailable Unavailab le Encounter Details Date Type Department Care Team (Latest Contact Info) Description 02/05/2025 Travel Social History Tobacco Use Types Packs/Day Years [...] often do you attend chur ch or muslim services? More than 4 times per year [...] week 01/18/2025 How often do you attend [facility] or muslim services? More than 4 times per year [...] more drinks on one occasion? Never 01/18/2025 [facility] [place] of Occupat ional Health - Occupational Stress [...] any time in the past 12 m [facility], were you homeless or living in a snf (including now)? No 01/25/2025 [facility] Utilities Answer Date Recorded In the [...] 03/01/2025 12:45 PM EDT Clinical Support Professional [facility] [address] [facility], [address] [place] [address] 04/24/2025 9:30 AM EST Clinical Support [facility] Lab [address], [address]nd [place] [address] 04/24/2025 10:00 AM EST Office Visit [facility] Urology [address], [address] [place] [phone] Jonathan Hutchinson MD [address] [place] [address] 06/05/2025 1:20 PM EST Office Visit [facility] Medicine Specialties [address], 2nd [place] [address] Arturo Puentes MD [address] [place] [address] 10/25/2025 11:00 AM EDT Office Visit [facility] Medicine Specialties [address], [address]nd [place] [address] Indio Stephens MD [address] [place] [address] 11/26/2025 7:45 AM EDT Office Visit [facility] [address] [place] [address] William Beltran MD [address] [place] [address] 01/28/2026 10:00 AM EDT Office Visit [facility] Primary and Urgent Care [address] [place] [phone] Vandana Abrams, GRAIN TRIMMER [address] [place] [address] documented as of this encounter Visit Diagnoses Not on filedocumented in this encounter Additional Health Concerns Assessment Noted Time PHQ-9 Depression Total Score: 0 01/26/20 8:49 AM EDT A fall risk assessment has been complete d for the patient 01/25/2025 8:59 AM EDT A Body Mass Index follow-up plan has been documented for the patient 01/25/2025 10:55 AM EDT documented as of this encounter Care Teams Netsuite Consultant Relationship Specialty Start Date End Date Vandana Abrams, GRAIN TRIMMER [address] [place] [address] PCP - General Internal Medicine 08/13/22 Jonathan Hutchinson MD [address] [place] [phone] Surgeon Urology 04/25/24 Juana Tena LPN VALUE-BASED [place] [address] TCM Nurse 01/08/25 02/07/25 Dominique Goldsmith LPN VALUE-BASED TRANSFORMATION PROGRAM TCM Nurse 01/18/25 documented as of this encounter
--- OUTSIDE RECORDS SUMMARY | 2025-02-27 08:59 | XMS_ITS | Encounter Summary ---
Author Organization [facility] Address [address] [place] [address] Care Team Providers Care Log Scaler Name Role Phone Vandana Abrams APRN Primary Care Provider [phone] Jonathan Hutchinson MD Unavailable Juana Tena LPN Unavailable Unavailable Dominique Goldsmith LPN Unavailable Unavailab le Encounter Details Date Type Department Care Team (Latest Contact Info) Description 01/25/2025 Travel Social History Tobacco Use Types Packs/Day [...] often do you attend chur ch or restorationism services? More than 4 times per year 01/10/2024 Do you belong to any clubs o r organizations such as mormon groups, unions, fraternal or athletic groups, or [...] week 01/18/2025 How often do you attend [facility] or restorationism services? More than 4 times per year 01/18/2025 Do you belong to any clubs o r organizations such as mormon groups, unions, fraternal or athletic groups, or [...] more drinks on one occasion? Never 01/18/2025 [facility] [place] of Occupat ional Health - Occupational Stress [...] any time in the past 12 m [facility], were you homeless or living in a usp (including now)? No 01/25/2025 [facility] Utilities Answer Date Recorded In the past [...] energy Not at all 01/25/2025 8:49 AM [place]ID[facility]T Beronica Graff Poor appetite or overeating Not [...] usual. Not at all 01/25/2025 8:49 AM CARIDADT Beronica Graff Thoughts that you would be [...] Beronica Graff documented as of this encounter Plan of Treatment Upcoming Encounters Date Type Department Care Team (Late st Contact Info) Description 03/01/2025 12:45 PM EDT Clinical Support Professional [facility] Clinic [address], [address] [place] [address] 04/24/2025 9:30 AM EST Clinical Support [facility] Lab [address], 2nd [place] [address] 04/24/2025 10:00 AM EST Office Visit [facility] Urology [address], 2nd [place] [address] Jonathan Hutchinson MD [address] [place] [address] 06/05/2025 1:20 PM EST Office Visit [facility] Medicine Specialties [address], 2nd [place] [address] Arturo Puentes MD [address] [place] [address] 10/25/2025 11:00 AM EDT Office Visit [facility] [address], 2nd [place] [address] Indio Stephens MD [address] [place] [address] 11/26/2025 7:45 AM EDT Office Visit [facility] Care [address] [facility] [address] William Beltran MD [address] [facility] [address] [place] [address] 01/28/2026 10:00 AM EDT Office Visit [facility] Care [address] [place] [address] Vandana Abrams APRN [address] [place] [address] documented as of this encounter [...] documented as of this encounter Care Teams Log Scaler Relationship Specialty Start Date End Date Vandana Abrams APRN [address] [place] [address] PCP - General Internal Medicine 08/13/22 Jonathan Hutchinson MD [address] [place] [address] Surgeon Urology 04/25/24 Juana Tena LPN [employer] [address] TCM Nurse 01/08/25 02/07/25 Dominique Goldsmith LPN VALUE-BASED TRANSFORMATION PROGRAM TCM Nurse 01/18/25 documented as of this encounter
--- OUTSIDE RECORDS SUMMARY | 2025-02-27 08:59 | XMS_ITS | Encounter Summary ---
Author Organization [facility] Address [address] [place] [address] Care Team Providers Care Product Trainer Name Role Phone Vandana Abrams APRN Primary Care Provider [phone] Jonathan Hutchinson MD Unavailable Juana Tena LPN Unavailable Unavailable Dominique Goldsmith LPN Unavailable Unavailab le Reason for Visit * Reason Comments AWV Encounter Details Date Type Department Care Team (Late st Contact Info) Description 01/18/2025 Patient Outreach [facility] [address], [address] [place] [address] Dominique Goldsmith LPN VALUE-BASED TRANSFORMATION PROGRAM AWV Social History Tobacco Use Types Packs/Day Years [...] often do you attend chur ch or buddhist services? More than 4 times per year 01/10/2024 Do you belong to any clubs o r organizations such as baptist groups, unions, fraternal or athletic groups, or [...] Recorded Patient Health Questionnaire-2 Score 0 01/09/2025 PHQ-9 Answer Date Recorded Patient Health Questionnaire-9 Score 0 01/09/2025 Humiliation, Afraid, Rape, and Kick questionnair e Answer Date Recorded Within the last year, have y ou been afraid of your partner or ex-partner? No 01/18/2025 Within the last year, have y ou been humiliated or emotionally abused in other ways by your partner or ex-partner? No Within the last year, have y ou been kicked, hit, slapped, or otherwise physically hurt by your partner or ex-partner? No 01/18/2025 Within the last year, have y ou been raped or forced to have any kind of sexual activity by your partner or ex-partner? No 01/18/2025 Social Connection and Isolation Panel Answer Date Recorded In a typical week, how many times do you talk on the phone with family, friends, or neighbors? More than three times a week 01/18/2025 How often do you get togethe r with friends or relatives? More than three times a week 01/18/2025 How often do you attend chur or buddhist services? More than 4 times per year 01/18/2025 Do you belong to any clubs o r organizations such as baptist groups, unions, fraternal or athletic groups, or [...] more drinks on one occasion? Never 01/18/2025 [facility] - Occupational Stress Questionnaire Answer Date [...] the money to buy more. Never true 01/19/20 25 Within the past 12 months, t he food you bought just didn't last and you didn't have money to get more. Never true 01/18/2025 PRAPARE - Transportation Answer Date Re corded In the past 12 months, has l ack of transportation kept you from medical appointments or from getting medications? No 12/30 In the past 12 months, has l ack of transportation kept you from meetings, work, or from getting things needed for daily living? No 01/18/2025 Housing Stability Vital Sign Answer Fady e Recorded In the last 12 months, was t here a time when you were not able to pay the mortgage or rent on time? No 01/18/2025 In the past 12 months, how m any times have you moved where you were living? 0 01/18/2025 At any time in the past 12 m [facility], were you homeless or living in a half-way (including now)? No 01/18/2025 Safety and Environment Answer Date Yaya rded [...] In the past 12 months has e electric, gas, oil, or water company threatened to shut off services in your home? No 01/18/2025 PHQ-2A Answer Date Recorded Patient Health Questionnaire-2 Score 0 04/27/2023 Sex and Gender Information Value Date Recorded Sex Assigned at Not on file Legal Sex Male 7:40 PM EDT Gender Identity Not on file Sexual Orientation Not on file documented as of this encounter Functional Status * AUDIT-C Score Answer Date of Assessment Author 0 01/18/2025 10:52 AM EDT Dominique Naidu LPN * Question Answer Date of Assessment Author Q1: How often do you have a drink containing alcohol? Never 01/18/2025 10:52 AM EDT Dominique Goldsmith LPN Q2: How many drinks containing alcohol do you have on a typical day when you are drinking? Patient does not drink 01/18/2025 10:52 AM EDT Dominique Goldsmith LPN Q3: How often do you have six or more drinks on one occasion? Never 01/18/2025 10:52 AM EDT Dominique Goldsmith LPN documented as of this encounter Miscellaneous Notes * Progress Notes - Dominique Goldsmith LPN - 01/18/2025 10:32 AM EDT 01/18/2025 AWV Call # 1 Patient Reached: Y HRA Completed: y 6-Item Cognitive Screen Completed: y Care Gaps Discussed: Annual Wellness Visit (AWV) Outcome: Discussed the importance of an annual wellness visit, reviewed medications, updated the SDOH assessment, updated learning needs, updated STEADI fall risk, and reminded the patient of the date and time of the upcoming appointment. Social Drivers of Health with Concerns No concerns present documented in this encounter Plan of Treatment Upcoming Encounters Date Type Department Care Team (Late st Contact Info) Description 03/01/2025 12:45 PM EDT Clinical Support [facility] Ast[facility] Allergy & [facility]us Clinic [address], [address] [place] [address] 04/24/2025 9:30 AM EST Clinical Support [facility] Lab [address], 2nd [place] [address] 04/24/2025 10:00 AM EST Office Visit [facility] Urology [address], 2nd [place] [address] Jonathan Hutchinson MD [address] [place] [address] 06/05/2025 1:20 PM EST Office Visit [facility] Medicine Specialties [address], [address] [place] [address] Arturo Puentes MD [address] [place] [address] 10/25/2025 11:00 AM EDT Office Visit [facility] Medicine Specialties [address], 2nd [place] [address] Indio Stephens MD [address] [place], [place] [phone] 11/26/2025 7:45 AM EDT Office Visit [facility] Advanced Eye Care [address] [place] [address] William Beltran MD [address] [place] [address] 01/28/2026 10:00 AM EDT Office Visit [facility] Primary and Urgent Care [address] [place] [address] Vandana Abrams, APPLICATION SPECIALIST [address] [place] [address] documented as of this encounter Visit Diagnoses Not on filedocumented in this encounter Additional Health Concerns Assessment Noted Time PHQ-9 Depression Total Score: 0 01/10/20 1:49 PM EDT A fall risk assessment has been complete d for the patient 01/18/2025 10:54 AM EDT A Body Mass Index follow-up plan has been documented for the patient 01/09/2025 6:41 PM EDT documented as of this encounter Care Teams Product Trainer Relationship Specialty Start Date End Date Vandana Abrams APRN [address] [place] [address] PCP - General Internal Medicine 08/13/22 Jonathan Hutchinson MD [address] [place] [address] Surgeon Urology 04/25/24 Juana Tena LPN VALUE-[place] [address] TCM Nurse 01/08/25 02/07/25 Dominique Goldsmith LPN VALUE-BASED TRANSFORMATION PROGRAM TCM Nurse 01/18/25 documented as of this encounter
--- OUTSIDE RECORDS SUMMARY | 2025-02-27 08:59 | XMS_ITS | Encounter Summary ---
Author Organization [facility] Address [address] [place] [address] Care Team Providers Care Non Destructive Evaluation Technician Name Role Phone Vandana Abrams APRN Primary Care Provider [phone] Jonathan Hutchinson MD Unavailable Juana Tena LPN Unavailable Unavailable Dominique Goldsmith LPN Unavailable Unavailab le Encounter Details Date Type Department Care Team (Latest Contact Info) Description 02/06/2025 Travel Social History Tobacco Use Types Packs/Day [...] often do you attend chur ch or mormonism services? More than 4 times per year 01/10/2024 Do you belong to any clubs o r organizations such as latter-day groups, unions, fraternal or athletic groups, or [...] week 01/18/2025 How often do you attend [facility] or mormonism services? More than 4 times per year 01/18/2025 Do you belong to any clubs o r organizations such as latter-day groups, unions, fraternal or athletic groups, or [...] more drinks on one occasion? Never 01/18/2025 [facility] of Occupat ional Health - Occupational Stress [...] any time in the past 12 m [facility], were you homeless or living in a jail (including now)? No 01/25/2025 [facility] Utilities Answer Date Recorded In [...] things Not at all 02/06/2025 9:02 AM Chhaya Diamond Feeling down, depressed, or hopeless Not at all 02/06/2025 9:02 AM Chhaya Diamond Patient Health Questionnaire -2 Score 0 02/06/2025 9:02 AM EDT Chhaya Castañeda * Question Answer Date of Assessment Author Trouble falling or staying a sleep, or sleeping too much Not at all 02/06/2025 9:02 AM Chhaya Diamond Feeling tired or having sheri le energy [...] Questionnaire -9 Score 0 02/06/2025 8:56 AM EDT Isis Malin * How difficult have these problems made it for you to do your work, take care of things at home, or get along with other people? Answer Date of Assessment Author Not difficult at all 02/06/2025 9:02 AM EDT Chhaya Jacobson documented as of this encounter Plan of Treatment Upcoming Encounters Date Type Department Care Team (Late st Contact Info) Description 03/01/2025 12:45 PM EDT Clinical Support Professional [facility] Ast[facility], Allergy & [facility]us Clinic [address], [address] [place] [address] 04/24/2025 9:30 AM EST Clinical Support [facility] Lab [address], [address] [place] [phone] 04/24/2025 10:00 AM EST Office Visit [facility] Urology [address], [address] [place] [phone] Jonathan Hutchinson MD [address] [place] [address] 06/05/2025 1:20 PM EST Office Visit [facility] Medicine Specialties [address], [address] [place] [phone] Arturo Puentes MD [address] [place] [address] 10/25/2025 11:00 AM EDT Office Visit [facility] Medicine Specialties [address], [address] [place] [phone] Indio Stephens MD [address] [place] [address] 11/26/2025 7:45 AM EDT Office Visit [facility] Eye Care [address] [place] [address] William Beltran MD [address] [place] [address] 01/28/2026 10:00 AM EDT Office Visit [facility] [address] [place] [phone] Vandana Abrams APRN [address] [place] [address] documented as of this encounter [...] documented as of this encounter Care Teams Non Destructive Evaluation Technician Relationship Specialty Start Date End Date Vandana Abrams APRN [address] [place] [address] PCP - General Internal Medicine 08/13/22 Jonathan Hutchinson MD [address] [place] [address] Surgeon Urology 04/25/24 Juana Tena LPN VALUE-[place]ED [place] [address] TCM Nurse 01/08/25 02/07/25 Dominique Goldsmith LPN VALUE-BASED TRANSFORMATION PROGRAM TCM Nurse 01/18/25 documented as of this encounter
--- OUTSIDE RECORDS SUMMARY | 2025-02-27 08:59 | XMS_ITS | Encounter Summary ---
Author Organization [facility] Address [address] [place] [address] Care Team Providers Care Land Acquisition Manager Name Role Phone Vandana Abrams APRN Primary Care Provider [phone] Jonathan Hutchinson MD Unavailable Dominique Goldsmith LPN Unavailable Unavailab le Encounter Details Date Type Department Care Team (Latest Contact Info) Description 02/08/2025 Travel Social History Tobacco Use Types Packs/Day [...] often do you attend chur ch or yarsani services? More than 4 times per year 01/10/2024 Do you belong to any clubs o r organizations such as zoroastrianism groups, unions, fraternal or athletic groups, or [...] week 01/18/2025 How often do you attend [facility] or yarsani services? More than 4 times per year 01/18/2025 Do you belong to any clubs o r organizations such as zoroastrianism groups, unions, fraternal or athletic groups, or [...] more drinks on one occasion? Never 01/18/2025 [facility] - Occupational Stress Questionnaire Answer Date [...] any time in the past 12 m [facility], were you homeless or living in a intermediate (including now)? No 01/25/2025 [facility] Utilities Answer Date Recorded In the [...] 03/01/2025 12:45 PM EDT Clinical Support Professional [facility] [address], [address] [place] [id number] 04/24/2025 9:30 AM EST Clinical Support [facility] [address] [place] [address] 04/24/2025 10:00 AM EST Office Visit [facility] [address], [address] [place] [phone] Jonathan Hutchinson MD [address] [place] [address] 06/05/2025 1:20 PM EST Office Visit [facility] [address], [facility] [place] [address] Arturo Puetnes MD [address] [place] [address] 10/25/2025 11:00 AM EDT Office Visit [facility] [address], [address] [place] [address] Indio Stephens MD [address] [place] [address] 11/26/2025 7:45 AM EDT Office Visit [facility] [address] [place] [phone] William Beltran MD [address] [place] [address] 01/28/2026 10:00 AM EDT Office Visit [facility] [address] [place] [address] Vandana Abrams APRN [address] [place] [address] documented as of this encounter [...] documented as of this encounter Care Teams Land Acquisition Manager Relationship Specialty Start Date End Date Vandana Abrams APRN [address] [place] [address] PCP - General Internal Medicine 08/13/22 Jonathan Hutchinson MD [address] [place] [phone] Surgeon Urology 04/25/24 Dominique Goldsmith LPN VALUE-BASED TRANSFORMATION PROGRAM TCM Nurse 01/18/25 documented as of this encounter
--- OUTSIDE RECORDS SUMMARY | 2025-02-27 08:59 | XMS_ITS | Clinical Summary ---
Author Organization [facility] Address [address] [place] [address] Care Team Providers Care Study Abroad Coordinator Name Role Phone Vandana Abrams APRN Primary Care Provider Jonathan Hutchinson MD Unavailable Dominique Goldsmith LPN Unavailable Unavailab le Allergies Active Allergy Reactions Criticality Noted Date Comments Morphine And Codeine Itching,Rash,Unknow n - Patient states they do not know rxn details Medium 11/01/2012 Medications Xegnv-Z-Qyxlsjsrfik se (BEANO PO) TAKE 1 TABLET 3 times daily take this medication with meals 09/28/19 20 Active Multiple Vitamins-Minerals (MULTI FOR HIM 50+ PO) TAKE 1 CAPSULE Daily 03/31/20 19 Active ascorbic acid (Vitamin C) 250 MG tablet Take 1 tablet (250 mg) by mouth 1 (one) time each day. Active chlorpheniramine (Chlor-Trimeton) 4 MG tablet Antihistamine 02/21/20 20 Active pseudoephedrine ER (Sudafed-12 Hour) 120 MG 12 hr tablet TAKE 1 TABLET EVERY 12 HOURS NEEDED. 02/27/20 20 Active simethicone (Mylicon) 125 MG chewable tablet Chew 1 tablet (125 mg). Active iron polysaccharides (Nu-Iron,Niferex) 150 MG capsuleIndications: Mild anemia Take 1 capsule (150 mg) by mouth 1 (one) time each day. 90 capsule 1 12/22/19 23 Active Aspirin 81 MG capsuleIndications: Coronary artery disease involving [place] coronary artery of [place] heart without angina pectoris Take 1 capsule by mouth 1 (one) time each day. 90 capsule 3 01/18/20 24 Active Coenzyme Q10 (CoQ10) 200 MG capsuleIndications: ASCVD (arteriosclerotic cardiovascular disease) Take 200 mg by mouth 1 (one) time each day. 90 capsule 3 01/18/20 24 Active tamsulosin (Flomax) 0.4 MG 24 hr capsule TAKE 1 CAPSULE BY MOUTH EVERY NIGHT AT BEDTIME 30 capsule 6 10/03/19 25 Active imiquimod (Aldara) 5 % cream as needed. 11/07/19 25 Active tacrolimus (Protopic) 0.1 % ointment 11/09/19 25 Active dicyclomine (Bentyl) 10 MG capsule Take 1 capsule by mouth 4 times a day before meals and nightly. Take with meals and at bedtime 120 capsule 1 01/10/20 25 025 Active doxepin (SINEquan) 25 MG capsuleIndications: Sleep difficulties Take 1 capsule by mouth nightly. 90 capsule 3 01/26/20 25 Active atorvastatin (Lipitor) 80 MG tabletIndications:C oronary artery disease involving [place] coronary artery of [place] heart without angina pectoris Take 1 tablet by mouth daily. 90 tablet 3 01/26/20 25 Active omeprazole (PriLOSEC) [address] capsuleIndications: Hepatic flexure syndrome Take 1 capsule by mouth daily. 90 capsule 3 01/26/20 25 Active busPIRone (Buspar) 10 MG tabletIndications:H epatic flexure syndrome Take 1 tablet by mouth 2 times a day. 180 tablet 3 01/26/20 25 Active budesonide (Rhinocort AQ) 32 MCG/ACT nasal spray Administer 1 spray into each nostril daily. 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 Dyslipidemia 02/27/2019 12/21/2022 Overview (12/21/2022): Hyperlipidemia, unspecified Gastroesophageal reflux disease 02/27/2019 12/21/2022 Overview (12/21/2022): Gastro-esophageal reflux disease without esophagitis DDD (degenerative disc disease), cervical 201812/21/2022 Anemia 06/07/2014 12/21/2022 Resolved Problems Problem Noted Date Diagnosed Date Resolved Date Age-related nuclear cataract of both eyes 06/12/2021 02/18/2025 HTN (hypertension) 04/05/2019 12/21/2022 HLD (hyperlipidemia) 04/05/2019 12/21/2022 024 Dysphonia 02/07/2018 12/21/2022 01/18/2024 Encounters Date Type Department Care Team Description 02/08/2025 7:00 PM EDT Immunization [facility] [address] [place] [address] Flu vaccine need (Primary Dx) 02/08/2025 Travel 02/06/2025 9:00 AM EDT Consult [facility] [address], [address] [place] [address] Jacqui Jimenes MD Chronic rhinitis (Primary Dx); Allergic conjunctivitis of both eyes; Dysfunction of both eustachian tubes; Obstructive sleep apnea 02/06/2025 Travel 02/05/2025 Travel 01/26/2025 Results Follow-Up [facility] [address] [place] [address] Vandana Abrams APRN 01/25/2025 8:40 AM EDT Office Visit [facility] [address] [place] [address] Vandana Abrams APRN Healthcare maintenance (Primary Dx); Medicare annual wellness visit, subsequent; Sleep difficulties; Coronary artery disease involving [place] coronary artery of [place] heart without angina pectoris; Hepatic flexure syndrome; Routine general medical examination at a health care facility 01/25/2025 Travel 01/18/2025 Patient Outreach [facility] [address] [place] [address] Dominique Goldsmith LPN AWV 01/09/2025 1:40 PM EDT Office Visit [facility] [address] [place] [address] Arturo Puentes MD Hepatic flexure syndrome (Primary Dx) 01/09/2025 Travel 01/09/2025 Patient Outreach [facility] [address] [place] [address] [address] [place] [address] Juana Tena LPN [facility] 01/08/2025 Patient Outreach [facility] [address] [facility] [address] [place] [address] Juana Tena LPN from Last 3 Months Immunizations Immunization Administration Dates Next Due Hep A, Adult 01/23/2019,11/11/2017 Hep B, adult 11/11/2017 Influenza, High-dose, Split Virus, Trivalent, Injectable, preservative free 02/08/2025,02/22/2024 Influenza, Unspecified 03/24/2018,04/02/2015,09/2011 Influenza, injectable, MDCK, preservative free, quadrivalent 06/14/2019,03/24/2018 Influenza, injectable, quadr ivalent, preservative free 03/05/2023,03/16/2022,03/20/2021,2019,02/28/2019 Influenza, seasonal, injectable 03/20/20 20,03/19/2020,02/28/2019,2013 Influenza, seasonal, injecta ble, preservative free 02/23/2017 Pfizer-BioNTech COVID-19 Biv alent (Kern Cap) 12+ years (aleshia-sucrose) 03/16/2022 Pfizer-BioNTech COVID-19 Vac cine (Peralta Cap) 12+ years (aleshia-sucrose) 06/12/2021 Pfizer-BioNTech COVID-19 Vac cine (Purple Cap) 12+ 07/19/2020,06/19/2020 Pneumococcal 20-jannet Conj Vaccine 01/18/2024 Pneumococcal, Unspecified 04/02/2015 Tdap 08/19/2017 Zoster, Recombinant 12/21/2022,08/13/2022 Family History Medical History Relation Name Comments Alcohol abuse Father Neo Reardon, Sr, Asthma Father Neo Reardon, Sr, Cardiac disorder Father Neo Reardon, Sr, Conversions - Other Father Neo Reardon, Sr, H earing deficit Hearing loss Father Neo Reardon, Sr, Heart disease Father Neo Reardon, Sr, Cancer Mother Elana Reardon Colon cancer Mother Elana Reardon Colon cancer Other Relation Name Status Comments Father Neo Reardon, , Mother Elana Reardon Other Social History Tobacco Use Types Packs/Day Years [...] week 01/10/2024 How often do you attend [facility] or sabianist services? More than 4 times per year 01/10/2024 Do you belong to any clubs o r organizations such as pentecostalism groups, unions, fraternal or athletic groups, or [...] How often do you attend chur or sabianist services? More than 4 times per year 01/18/2025 Do you belong to any clubs o r organizations such as pentecostalism groups, unions, fraternal or athletic groups, or [...] more drinks on one occasion? Never 01/18/2025 [facility] - Occupational [...] time in the past 12 m [facility], were you homeless or living in a halfway (including now)? No 01/25/2025 [facility] Utilities Answer Date Recorded In the past 12 months has e Security [employer], gas, oil, or water company threatened to [...] on file Sexual Orientation Not on file Last Filed Vital Signs Vital Sign Reading Time Taken Comments Blood Pressure 110/70 02/06/2025 8:55 AM EDT Pulse 58 02/06/2025 8:55 AM EDT Temperature 37 C (98.6 F) 02/06/2025 8:55 AM EDT Respiratory Rate 16 06/29/2022 10:01 AM EST Oxygen Saturation 98% 01/25/2025 9:01 AM EDT Inhaled Oxygen Concentration - - Weight 87.2 kg (192 lb 3.9 oz) 02/06/2025 8:55 A M EDT Height 180.3 cm (5' 11 ) 02/06/2025 8:55 AM EDT Body Mass Index 26.81 02/06/2025 8:55 AM EDT Plan of Treatment Upcoming Encounters Date Type Department Care Team (Late st Contact Info) Description 03/01/2025 12:45 PM EDT Clinical Support Professional [facility] [address], [address] [place] [address] 04/24/2025 9:30 AM EST Clinical Support [facility] [address] [place] [address] 04/24/2025 10:00 AM EST Office Visit [facility] [address] [place] [address] Jonathan Hutchinson MD [address] [place] [address] 06/05/2025 1:20 PM EST Office Visit [facility] [address] [place] [address] Arturo Puentes MD [address] [place] [address] 10/25/2025 11:00 AM EDT Office Visit [facility] [address], [address] [place] [address] [place] [address] Indio Stephens MD [address] [place] [address] 11/26/2025 7:45 AM EDT Office Visit [facility] [address] [place] [address] William Beltran MD [address] [place] [address] 01/28/2026 10:00 AM EDT Office Visit [facility] [address] [place] [address] Vandana Abrams, CONCRETE BUILDING ASSEMBLER [address] [place] [address] Health Maintenance Due Date Last Done Comments [facility]-/Child/Adol SDOH Screenings [address] Colonography 10/31/2003 FIT-DNA 10/31/2003 FIT 10/31/2003 FOBT 10/31/2003 Sigmoidoscopy 10/31/2003 [facility]-RSV Vaccine: 60+ Years or (1 - Risk 60-74 years 1-dose series) 2018 Colonoscopy 01/03/2025 12/20/2013 [facility]-Colorectal Cancer Screening 01/03/2025 [facility]- SDOH Screenings 07/28/2025 [facility]-Adult SDOH Screenings 07/28/2025 01/25/2025 [facility]-Medicare Annual Wellness (AWV) 01/25/2026 01/25/2025 [facility]-Depression Screening 02/06/2026 02/06/2025, 01/2025 [facility]-DTaP,Tdap,and Td Vaccines (2 - Td or Tdap) 08/20/2027 08/19/2017 [facility]-Hepatitis A Vaccines Aged Out 01/23/2019, 10/29 No longer eligible based on patient's age to complete this topic [id number] Vaccine Discontinued 03/16/2022, 06/12/2021, 07/19/2020, Additional history exists [facility]-Zoster Vaccines Completed 12/21/2022, [facility]-Hepatitis C Screening Completed 01/10/2024, 07/2021 [facility]-Pneumococcal Vaccine: 50+ Years Completed 01/18/2024, 04/02/2015 [facility]-Obesity Intervention Completed 025, 01/25/2025, 01/09/2025, Additional history exists [facility]-Influenza Vaccine Completed 02/08/2025 , 02/22/2024, 03/05/2023, Additional history exists HPV Vaccines Aged Out No longer eligi ble based on patient's age to complete this topic [facility]-HIB Vaccines Aged Out No longer e ligible based on patient's age to complete this topic [facility]-IPV Vaccines Aged Out No longer e ligible based on patient's age to complete this topic [facility]-Rotavirus Vaccines Aged Out No lo nger eligible based on patient's age to complete this topic Procedures Procedure Name Priority Date/Time Associated Diagnosis Comments VITAMIN D 25 HYDROXY Routine 01/25/2025 10:36 AM EDT Healthcare maintenance VITAMIN B12, SERUM Routine 01/25/2025 10 :36 AM EDT Healthcare maintenance TSH Routine 01/25/2025 10:36 AM EDT Healthcare maintenance PROSTATE CANCER SCREEN, SERUM Routine 01/25/2025 10:36 AM EDT Healthcare maintenance LIPID PROFILE, PLASMA [...] medical examination at a health care facility HEPATITIS C ANTIBODY W/REFLEX TO HCV QUANT PCR Routine 01/10/2024 9:46 AM EDT Need for hepatitis C screening test COLONOSCOPY 12/20/2013 from Last 3 Months or Most Recently Relevant to Health Maintenance Results * (ABNORMAL) Prostate Cancer Screen, Serum (01/25/2025 10:36 AM EDT) Pathologist [facility] Prostate Cancer Screen, Serum 5.78(H) 0.00 - 4.50 ng/mL 01/25/2025 1:34 PM EDT [facility] Blood Venous blood specimen / Unknown Venipuncture / Unknown 01/25/2025 10:36 AM EDT 01/25/2025 1:01 PM EDT Narrative [facility] - 01/25/2025 1:34 PM EDT Performed by Britt electrochemiluminescent immunoassay which is standardized against the PSA [place] Reference Standard (WHO 96/670). Results obtained with different test methods or kits cannot be used interchangeably. us Vandana Abrams APRN LAB BLOOD ORDERABLES Final Result [facility] [address] [place] [address] * Vitamin D 25 Hydroxy (01/25/2025 10:36 AM EDT) Pathologist [facility] Vitamin D 25 Hydroxy 44.5 20.0 - 80.0 ng/mL 01/25/2025 1:55 PM EDT [facility] Blood Venous blood specimen / Unknown Venipuncture / Unknown 01/25/2025 10:36 AM EDT 01/25/2025 1:02 PM EDT Narrative [facility] - 01/25/2025 1:55 PM EDT Testing performed on [employer], standardized against NIST SRM 2972. When testing [...] to 80 ng/mL Possible toxicity: >100 ng/mL Vandana Abrams TREY LAB BLOOD ORDERABLES Final Result [facility] [address] [place] [address] * CBC W/O Differential (01/25/2025 10:36 AM EDT) WBC Count 4.81 3.70 - 10.30 10*3/uL LAB HEMATOLOGY METHOD 01/25/2025 1:13 PM EDT [facility] RBC Count 4.79 4.60 - 6.10 10*6/uL LAB HEMATOLOGY METHOD 01/25/2025 1:13 PM EDT [facility] HGB 14.8 13.7 - 17.5 g/dL LAB HEMATOLOGY METHOD 01/25/2025 1:13 PM EDT [facility] HCT 43.9 40.0 - 51.0 % LAB HEMATOLOGY METHOD 01/25/2025 1:13 PM EDT [facility] Platelet Count 238 155 - 369 10*3/uL LAB HEMATOLOGY METHOD 01/25/2025 1:13 PM EDT [facility] MCV 92 79 - 98 fL LAB HEMATOLOGY METHOD 01/25/2025 1:13 PM EDT [facility] MCH 30.9 26.0 - 32.0 pg LAB HEMATOLOGY METHOD 01/25/2025 1:13 PM EDT [facility] MCHC 33.7 30.7 - 35.5 g/dL LAB HEMATOLOGY METHOD 01/25/2025 1:13 PM EDT [facility] RDW 12.7 11.5 - 14.5 % LAB HEMATOLOGY METHOD 01/25/2025 1:13 PM EDT [facility] MPV 10.4 8.8 - 12.5 fL LAB HEMATOLOGY METHOD 01/25/2025 1:13 PM EDT [facility] nRBC 0.0 <=0.0 per 100 WBCs LAB HEMATOLOGY METHOD 01/25/2025 1:13 PM EDT [facility] Blood Venous blood specimen / Unknown Venipuncture / Unknown 01/25/2025 10:36 AM EDT 01/25/2025 1:02 PM EDT us Vandana Abrams CONCRETE BUILDING ASSEMBLER LAB BLOOD ORDERABLES Final Result [facility] [address] [place] [address] * Thyroid Stimulating Hormone, Plasma (01/25/2025 10:36 AM EDT) Thyroid Stimulating Hormone, Plasma 1.37 0.40 - 4.20 uIU/mL 01/25/2025 1:[address] [facility] Blood Venous blood specimen / Unknown Venipuncture / Unknown 01/25/2025 10:36 AM EDT 01/25/2025 1:03 PM EDT Vandana Abrams APRN LAB BLOOD ORDERABLES Final Result Performing Organization Address City/[facility]/ZIP Co de Phone Number [facility] [address] [place] [address] * Free T4, Plasma (01/25/2025 10:36 AM EDT) Free T4, Plasma 1.1 0.8 - 1.7 ng/dL 01/25/2025 1:31 PM EDT [facility] Blood Venous blood specimen / Unknown Venipuncture / Unknown 01/25/2025 10:36 AM EDT 01/25/2025 1:03 PM EDT Vandana Abrams APRN LAB BLOOD ORDERABLES Final Result [facility] [address] [place] [address] * Hemoglobin A1c (01/25/2025 10:36 AM EDT) Hemoglobin A1c 5.5 <5.7 % 01/25/2025 1:[address] [facility] Blood Venous blood specimen / Unknown Venipuncture / Unknown 01/25/2025 10:36 AM EDT 01/25/2025 1:01 PM EDT Narrative [facility] - 01/25/2025 1:35 PM EDT HA1C Interpretive Data: Diagnosis of Diabetes: Diabetic > or = 6.5% Pre-diabetic 5.7 to 6.4% Non-diabetic < or = 5.6% Glycemic Targets for Type I and Type II Diabetics: Non- Adults <7.0% Adults <6.0% Children and Adolescents <7.5% Source: [place] [employer] Association. Standards of medical care in diabetes,2017. Diabetes Care.2017:40 (suppl 1):S1-S135. Vandana Abrams APRN LAB BLOOD ORDERABLES Final Result [facility] [address] [place] [address] * Vitamin B12, Serum (01/25/2025 10:36 AM EDT) Vitamin B12, Serum 681 210 - 1,033 pg/mL 01/25/2025 1:[address] [facility] Blood Venous blood specimen / Unknown Venipuncture / Unknown 01/25/2025 10:36 AM EDT 01/25/2025 1:01 PM EDT [employer] Jose Alberto CONCRETE BUILDING ASSEMBLER LAB BLOOD ORDERABLES Final Result [facility] [address] [place] [address] * Lipid Profile, Plasma (01/25/2025 10:36 AM EDT) Cholesterol, Plasma 119 <200 mg/dL 01/25/2025 1:31 PM EDT [facility] Comment: Cholesterol Reference Range (age >17 years): Desirable <200 mg/dL Borderline 200 to 239 mg/dL Undesirable >239 mg/dL HDL 68 >=40 mg/dL 01/25/2025 1:31 PM EDT [facility] Comment: HDL Cholesterol Reference Ranges (age >17 years): Female, acceptable > or = 50 mg/dL Male, acceptable > or = 40 mg/dL Triglycerides, Plasma 44 <150 mg/dL 01/25/2025 1:31 PM EDT [facility] Comment: Triglyceride Reference Range (age >17 years): Desirable: <150 mg/dL Borderline high: 150 to 199 mg/dL High: 200 to 499 mg/dL Very high: >499 mg/dL Increased risk of pancreatitis: >1000 mg/dL Cholesterol/HDL Ratio 2 01/25/2025 1:31 PM EDT [facility] LDL, Calculated 40 <100 mg/dL 1:31 PM EDT [facility] Comment: LDL Cholesterol Reference Range (age [...] 12 hours? Yes 01/25/2025 1:31 PM EDT [facility] Blood Venous blood specimen / Unknown Venipuncture / Unknown 01/25/2025 10:36 AM EDT 01/25/2025 1:03 PM EDT us Vandana Abrams APRN LAB BLOOD ORDERABLES Final Result [facility] [address] [place] [address] * (ABNORMAL) Comprehensive Metabolic Panel, Plasma (01/25/2025 10:36 AM EDT) Glucose, Plasma 85 74 - 99 mg/dL 01/25/2025 1:31 PM EDT [facility] BUN, Plasma 14 8 - 23 mg/dL 01/25/2025 1:31 PM EDT [facility] Creatinine, Plasma 0.91 0.70 - 1.20 mg/dL 01/25/2025 1:31 PM EDT [facility] BUN/Creatinine Ratio 15 01/25/2025 1:31 PM EDT [facility] Sodium, Plasma 139 136 - 145 mmol/L 01/25/2025 1:31 PM EDT [facility] Potassium, Plasma 4.6 3.6 - 4.9 mmol/L 01/25/2025 1:31 PM EDT [facility] Chloride, Plasma 102 97 - 107 mmol/L 01/25/2025 1:31 PM EDT [facility] CO2, Plasma 25 22 - 29 mmol/L 01/25/2025 1:31 PM EDT [facility] Anion Gap 12 6 - 16 mmol/L 01/25/2025 1:31 PM EDT [facility] Total Calcium, Plasma 9.7 8.9 - 10.2 mg/dL 01/25/2025 1:31 PM EDT [facility] Total Protein 7.4 6.3 - 7.9 g/dL 01/25/2025 1:31 PM EDT [facility] Albumin, Plasma 4.7 3.5 - 5.2 g/dL 01/25/2025 1:31 PM EDT [facility] AST, Plasma 50 10 - 50 U/L 01/25/2025 1:31 PM EDT [facility] ALT, Plasma 73(H) 10 - 50 U/L 01/25/2025 1:31 PM EDT [facility] Alkaline Phosphatase, Plasma 103 40 - 115 U/L 01/25/2025 1:31 PM EDT [facility] Total Bilirubin, Plasma 1.0 0.2 - 1.1 mg/dL 01/25/2025 1:31 PM EDT [facility] eGFRcr 93.0 mL/min/1.7 3m*2 01/25/2025 1:31 PM EDT [facility] Comment:Reported eGFRcr in m L/min/1.73m2 is based the CKD-EPI 2020 equation that does not use a race coefficient. Blood Venous blood specimen / Unknown Venipuncture / Unknown 01/25/2025 10:36 AM EDT 01/25/2025 1:03 PM EDT Vandana K Abrams CONCRETE BUILDING ASSEMBLER LAB BLOOD ORDERABLES Final Result Performing Organization Address [facility]/ZIP Co de Phone Number [facility] [address] [place] [address] * Gold Top (01/25/2025 10:32 AM EDT) [facility] Extra Hold for add-ons 01/25/2025 5:01 PM EDT [facility] Comment:Auto resulted. Blood Venous blood specimen / Unknown Venipuncture / Unknown 01/25/2025 10:32 AM EDT 01/25/2025 2:55 PM EDT Vandana Michaels Abrams CONCRETE BUILDING ASSEMBLER LAB BLOOD ORDERABLES Final Result Performing Organization Address [facility] Co de Phone Number [facility] [address] [place] [address] * Hepatitis C Antibody w/Reflex to HCV Quant PCR (01/10/2024 9:46 AM EDT) [facility] Hepatitis C Antibody Negative Negative 01/10/2024 1:30 PM EDT [facility] Blood Venous blood specimen / Unknown Venipuncture / Unknown 01/10/2024 9:46 AM EDT 01/10/2024 12:46 PM EDT Vandana Michaels Jose Alberto CONCRETE BUILDING ASSEMBLER LAB BLOOD ORDERABLES Final Result Performing Organization Address City/[facility] Co de Phone Number [facility] [address] [place] [address] * COLONOSCOPY (12/20/2013) Anatomical Region Laterality Modality Endoscopy Narrative 12/20/2013 Ordered by an unspecified provider. Historical Provider GI PROCEDURE ORDERABLES Faye l Result from Last 3 Months or Most Recently Relevant to Health Maintenance Insurance [facility] [place] [address] Care Teams Study Abroad Coordinator Relationship Specialty Start Date End Date Vandana Abrams APRN [address] [place] [address] [address] [place] [phone] PCP - General Internal Medicine 08/13/22 Jonathan Hutchinson MD [address] [place] [address] Surgeon Urology 04/25/24 Dominique Goldsmith LPN VALUE-BASED TRANSFORMATION PROGRAM TCM Nurse 01/18/25
--- OUTSIDE RECORDS SUMMARY | 2025-02-27 08:59 | XMS_ITS | Encounter Summary ---
Author Organization [facility] Address [address] [place] [address] Care Team Providers Care Import Coordinator Name Role Phone Vandana Abrams APRN Primary Care Provider [phone] Jonathan Hutchinson MD Unavailable Juana Tena LPN Unavailable Unavailable Encounter Details Date Type Department Care Team (Latest Contact Info) Description 01/09/2025 Travel Social History Tobacco Use Types Packs/Day [...] How often do you attend chur or buddhism services? More than 4 times per year 01/10/2024 Do you belong to any clubs o r organizations such as orthodoxy groups, unions, fraternal or athletic groups, or [...] Recorded Patient Health Questionnaire-2 Score 0 01/09/2025 [facility] [place] - Occupational Stress Questionnaire Answer Date Recorded [...] place to sleep or slept in a fdc (including now)? No 01/10/2024 PHQ-9 Answer Date [...] any time in the past 12 m ont, were you homeless or living in a fdc (including now)? No 06/20/2024 Safety and Environment [...] Recorded In the past 12 months has [facility] electric, gas, oil, or water company threatened [...] 01/09/2025 1:49 PM EDT Rona Du A Feeling down, depressed, or hopeless Not at all 01/09/2025 1:49 PM EDT Rona Du A Patient Health Questionnaire -2 Score 0 01/09/2025 1:49 PM EDT Rona Du A * Question Answer Date of Assessment Author Trouble falling or staying asleep, or sleeping too much Not at all 01/09/2025 1:49 PM EDT Rona Du A Feeling tired or having sheri le energy Not at all 01/09/2025 1:49 PM EDT Paddy Dut A Poor appetite or overeating Not at all 01/09/2025 1: 49 PM EDT Paddy Dut A Feeling bad about yourself - or that you are a failure or have let yourself or your family down Not at all 01/09/2025 1:49 PM EDT Rona Fitzgerald A Trouble concentrating on thi ngs, such as [...] all 01/09/2025 1:49 PM EDT Rona Fitzgerald A documented as of this encounter Plan of Treatment Upcoming Encounters Date Type Department Care Team (Late st Contact Info) Description 03/01/2025 12:45 PM EDT Clinical Support Professional [facility] [address], [address] [place] [address] 04/24/2025 9:30 AM EST Clinical Support [facility] [address], [address] [place] [phone] 04/24/2025 10:00 AM EST Office Visit [facility] Urology [address], [address] [place] [address] Jonathan Hutchinson MD [address] [place] [address] 06/05/2025 1:20 PM EST Office Visit [facility] Medicine Specialties [address], [address] [place] [address] Arturo Puentes MD [address] [place] [address] 10/25/2025 11:00 AM EDT Office Visit [facility] Medicine Specialties [address], [address]nd [place] [address] Indio Stephens MD [address] [place] [address] 11/26/2025 7:45 AM EDT Office Visit [facility] [address] [place] [address] William Beltran MD [address] [place] [address] 01/28/2026 10:00 AM EDT Office Visit [facility] Primary [facility] Urgent Care [address] [place] [address] Vandana Abrams, CENTRIFUGE OPERATOR [address] [facility] [address] [place] [address] documented as of this encounter [...] documented as of this encounter Care Teams Import Coordinator Relationship Specialty Start Date End Date Vandana Abrams APRN [address] [place] [address] PCP - General Internal Medicine 08/13/22 Jonathan Hutchinson MD [address] [place] [phone] Surgeon Urology 04/25/24 Juana Tena LPN [employer] [place] [address] TCM Nurse 01/08/25 02/07/25 documented as of this encounter
--- OUTSIDE RECORDS SUMMARY | 2025-02-27 08:59 | XMS_ITS | Encounter Summary ---
Author Organization [facility] Address [address] [place] [address] Care Team Providers Care Belt Line Feeder Name Role Phone Vandana Arbams APRN Primary Care Provider [phone] Jonathan Hutchinson MD Unavailable [phone] Juana Tena LPN Unavailable Unavailable Encounter Details Date Type Department Care Team (Late st Contact Info) Description 01/08/2025 Patient Outreach [facility] [address], [address] [place] [address] Juana Tena LPN VALUE[employer] [place] [address] Social History Tobacco Use Types Packs/Day Years [...] often do you attend chur ch or rastafari services? More than 4 times per year 01/10/2024 Do you belong to any clubs o r organizations such as sabianism groups, unions, fraternal or athletic groups, or [...] Recorded Patient Health Questionnaire-2 Score 0 01/09/2025 [facility] - Occupational Stress Questionnaire Answer [...] place to sleep or slept in a mcc (including now)? No 01/10/2024 PHQ-9 Answer Date [...] were you homeless or living in a mcc (including now)? No 06/20/2024 Safety and Environment [...] encounter Miscellaneous Notes * Progress Notes - Juana Tena LPN - 01/08/2025 3:18 PM EDT Admit Date: 01/05/2025 Discharge Date: 01/06/2025 Hospital Service: [facility] Discharge Diagnosis: Near syncope/bradycardia 01/08/2025 TCM call # 1 Patient Reached: No Outcome: AYLA nurse reached out to patient on mobile number listed, no answer, left a message on voicemail with name, [facility] non urgent phone call, courtesy call, will attempt to reach you again tomorrow and call back number provided. Action: N/A Medication changes: Per Discharge Summary: Stop taking: Hydroxyzine 25 mg AYLA appointment: 01/16/2025 at 9:20 am with Vandana Abrams APRN. Items to address at AYLA: N/A documented in this encounter Plan of Treatment Upcoming Encounters Date Type Department Care Team (Late st Contact Info) Description 03/01/2025 12:45 PM EDT Clinical Support Professional [facility] [address], [address] [place] [address] 04/24/2025 9:30 AM EST Clinical Support [facility] Lab [address], 2nd [place] [address] 04/24/2025 10:00 AM EST Office Visit [facility] Urology [address], [address]nd [place] [address] Jonathan Hutchinson MD [address] [place] [address] 06/05/2025 1:20 PM EST Office Visit [facility] Medicine Specialties [address], 2nd [place] [address] Arturo Puentes MD [address] [place] [address] 10/25/2025 11:00 AM EDT Office Visit [place] [facility] [address], [address]nd [place] [address] Indio Stephens MD [address] [place], [place] [phone] 11/26/2025 7:45 AM EDT Office Visit [facility] [address] [place] [address] William Beltran MD [address] [place] [address] 01/28/2026 10:00 AM EDT Office Visit [facility] Primary [facility] Urgent Care [address] [place] [address] Vandana Abrams APRN [address] [place] [address] documented as of this encounter Visit Diagnoses Not on filedocumented in this encounter Additional Health Concerns Assessment Noted Time PHQ-9 Depression Total Score: 0 10/25/19 1:00 PM EDT A fall risk assessment has been complete d for the patient 10/24/2024 1:00 PM EDT A Body Mass Index follow-up plan has been documented for the patient 11/20/2024 8:26 AM EDT documented as of this encounter Care Teams Belt Line Feeder Relationship Specialty Start Date End Date Vandana Abrams APRN [address] [place] [address] PCP - General Internal Medicine 08/13/22 Jonathan Hutchinson MD [address] [place] [address] Surgeon Urology 04/25/24 Juana Tena LPN VALUE-[employer]ED [place] [address] TCM Nurse 01/08/25 02/07/25 documented as of this encounter
--- OUTSIDE RECORDS SUMMARY | 2025-02-27 08:59 | XMS_ITS | Encounter Summary ---
Author Organization [facility] Address [address] [place] [address] Care Team Providers Care Cafeteria Associate Name Role Phone Vandana Abrams APRN Primary Care Provider [phone] Jonathan Hutchinson MD Unavailable [phone] Juana Tena LPN Unavailable Unavailable Reason for Visit * Reason Comments TCM Encounter Details Date Type Department Care Team (Late st Contact Info) Description 01/09/2025 Patient Outreach POPULATION HEALTH [address], [address] [place] [address] Juana Tena LPN [employer] [address] TCM Social History Tobacco Use Types Packs/Day Years [...] often do you attend chur ch or gnosticism services? More than 4 times per year 01/10/2024 Do you belong to any clubs o r organizations such as evangelical groups, unions, fraternal or athletic groups, or [...] Recorded Patient Health Questionnaire-2 Score 0 01/09/2025 [facility] - Occupational Stress Questionnaire Answer Date Recorded [...] place to sleep or slept in a residential (including now)? No 01/10/2024 PHQ-9 Answer Date [...] any time in the past [address] [facility], were you homeless or living in a residential (including now)? No 06/20/2024 Safety and Environment [...] Progress Notes - Juana Tena LPN - 01/09/2025 10:27 AM EDT Admit Date: 01/05/2025 Discharge Date: 01/06/2025 Hospital Service: [facility] Discharge Diagnosis: Near syncope/bradycardia 01/09/2025 TCM call # 2 Patient Reached: Yes Outcome: AYLA nurse reached out to patient on mobile number listed. Overall, he is doing better. Patient reported RLQ abdominal pain, pain is currently a 2 on a 0-10 pain scale. He has an appointment with GI today, 01/09/2025. Patient denied N/V/D, fever, dizziness or falls since discharge. He received a copy of his discharge paperwork, reviewed post discharge instructions. He is independent with ambulation and ADLs, eating and drinking adequately. No HH or home oxygen. Nila is active, aware of upcoming appointments at [facility]. SDPA assessment is up to date, no issue with transportation. Patient declined to complete medication reconciliation, to a pharmacist. He is aware of stop medication listed below. Patient is aware of AYLA appointment with PCP and plans to attend. Action: N/A Medication changes: Per Discharge Summary: Stop taking: Hydroxyzine 25 mg AYLA appointment: 01/16/2025 at 9:20 am with Vandana Abrams APRN. Items to address at AYLA: N/A documented in this encounter Plan of Treatment Upcoming Encounters Date Type Department Care Team ([facility] st Contact Info) Description 03/01/2025 12:45 PM EDT Clinical Support [facility] [employer] [place] [facility] [address], [address] [place] [address] 04/24/2025 9:30 AM EST Clinical Support [facility] [address], 2nd [place] [address] 04/24/2025 10:00 AM EST Office Visit [facility] Urology [address], 2[address] [place] [address] Jonathan Hutchisnon MD [address] [place] [address] 06/05/2025 1:20 PM EST Office Visit [facility] Specialties [address], [address] [place] [address] Arturo Puentes MD [address] [place] [address] 10/25/2025 11:00 AM EDT Office Visit [facility] Medicine Specialties [address], [address] [place] [address] Indio Stephens MD [address] [place] [address] 11/26/2025 7:45 AM EDT Office Visit [facility] [address] [place] [address] William Beltran MD [address] [facility] [address] [place] [address] 01/28/2026 10:00 AM EDT Office Visit [facility] Primary [facility] Urgent Care [address] [place] [address] Vandana Abrams APRN [address] [facility] [address] [place] [address] documented as of this encounter Visit Diagnoses Not on filedocumented in this encounter Additional Health Concerns Assessment Noted Time PHQ-9 Depression Total Score: 0 01/10/20 25 1:49 PM EDT A fall risk assessment has been complete d for the patient 01/09/2025 1:49 PM EDT A Body Mass Index follow-up plan has been documented for the patient 01/09/2025 6:41 PM EDT documented as of this encounter Care Teams Cafeteria Associate Relationship Specialty Start Date End Date Vandana Abrams APRN [address] [facility] [address] [place] [address] PCP - General Internal Medicine 08/13/22 Jonathan Hutchinson MD [address] [place] [address] Surgeon Urology 04/25/24 Juana Tena LPN [employer] [address] TCM Nurse 01/08/25 02/07/25 documented as of this encounter
--- OUTSIDE RECORDS SUMMARY | 2025-02-27 08:59 | XMS_ITS ---
Author Organization [facility] Address [address] [place] [address] Care Team Providers Care Tile Layer Supervisor Name Role Phone Vandana Abrams APRN Primary Care Provider Jonathan Hutchisnon MD Unavailable Dominique Goldsmith LPN Unavailable Unavailab le Transitional Care Management Status:Closed (Closed) Start date:01/08/2025 Enrollment date:01/09/2025 Enrollment reason:Identified using hospital discharge data End date:02/07/2025 Close reason:Patient graduated Overview This episode type is for outpatient care managers enrolling patients in the [facility] Transitional Care Management program. Continued Care and Services Coordination
--- OUTSIDE RECORDS SUMMARY | 2025-02-27 08:59 | XMS_ITS ---
Author Organization [facility] Address [address] [place] [address] Care Team Providers Care Food Assembler Kitchen Name Role Phone Vandana Abrams APRN Primary Care Provider [phone] Jonathan Hutchinson MD Unavailable Dominique Goldsmith LPN Unavailable Unavailab le Annual Wellness Status:Active (Active) Start date:01/18/2025 Enrollment date:01/18/2025 Enrollment reason:Identified using claims or encounter data Case Team Name Relationship Phone Dominique Goldsmith LPN(Responsible Staff) [facility]ing se Continued Care and Services Coordination
--- OUTSIDE RECORDS SUMMARY | 2025-02-27 08:59 | XMS_ITS | Encounter Summary ---
Author Organization [facility] Address [address] [place] [address] Care Team Providers Care Javascript Engineer Name Role Phone Vandana Abrams APRN Primary Care Provider Mariela Yepez AUTOMOTIVE GENERATOR REPAIRER Unavailable UnavailJonathan Hand MD Unavailable Juana Tena AUTOMOTIVE GENERATOR REPAIRER Unavailable Unavailable Dominique Goldsmith AUTOMOTIVE GENERATOR REPAIRER Unavailable Unavailab le Reason for Visit * Reason Onset Date Comments Med Refill 12/14/2022 Encounter Details Date Type Department Care Team (Late st Contact Info) Description 12/14/2022 Refill [facility] [address] [place] [address] Vandana Abrams, MAGAZINE JOURNALIST [address] [place] [address] Social History Tobacco Use Types Packs/Day Years Used Date Smoking Tobacco: Never Smokeless Tobacco: Never Alcohol Use Standard Drinks/Week Comments Not Currently 0 (1 standard drink = 0.6 oz pur e alcohol) PHQ-2 Answer Date Recorded Patient Health Questionnaire-2 Score 0 12/08/2022 Sex and Gender Information Value Date Recorded Sex Assigned at Not on file Legal Sex Male 7:40 PM EDT Gender Identity Not on file Sexual Orientation Not on file documented as of this encounter Miscellaneous Notes * Telephone Encounter - Vandana Abrams APRN - 12/22/2022 8:52 AM EDT Pt seen in office, refills done. * Telephone Encounter - Sunitha Winslow - 12/15/2022 7:44 AM EDT Requested Prescriptions Pending Prescriptions Disp Refills doxepin (SINEquan) 25 MG capsule LEYLA: 08/13/2022 NOV: 12/21/2022 Patient comment: Dr Vasquez originally prescribed this thinking Bill might need as much as 100mg in order to sleep. We filled it with 25mg capsules thinking that we would try the lower doses first. 25mg QHS has worked well. We see you next week but he has run out of the med. If we could get 25mg QHS for a 30 day supply to get us through, that would be great. If not, we can discuss it next week. documented in this encounter Plan of Treatment Upcoming Encounters Date Type Department Care Team (Late st Contact Info) Description 03/01/2025 12:45 PM EDT Clinical Support Professional [facility] [address] [facility] [facility], [address] [place] [address] 04/24/2025 9:30 AM EST Clinical Support [facility] Lab [address], 2nd [place] [address] 04/24/2025 10:00 AM EST Office Visit [facility] Urology [address], [address] [place] [address] Jonathan Hutchinson MD [address] [place] [address] 06/05/2025 1:20 PM EST Office Visit [facility] Medicine Specialties [address], [address] [place] [address] Arturo Puentes MD [address] [place] [address] 10/25/2025 11:00 AM EDT Office Visit [facility] [address], [address] [place] [address] Indio Stephens MD [address] [place] [address] 11/26/2025 7:45 AM EDT Office Visit [facility] [address] [place] [address] William Beltran MD [address] [place] [address] 01/28/2026 10:00 AM EDT Office Visit [facility] [address] [place] [address] Vandana Abrams APRN [address] [place] [address] documented as of this encounter Visit Diagnoses Not on filedocumented in this encounter Additional Health Concerns Infection Onset Date Last Indicated Resolved Time Influenza 06/20/2024 06/20/2024 07/18/2024 5:24 AM EST Assessment Noted Time A fall risk assessment has been complete d for the patient 12/08/2022 9:50 AM EDT A Body Mass Index follow-up plan has been documented for the patient 12/18/2022 11:31 PM EDT documented as of this encounter Care Teams Javascript Engineer Relationship Specialty Start Date End Date Vandana Abrams, MAGAZINE JOURNALIST [address] [place] [address] PCP - General Internal Medicine 08/13/22 Mariela Yepez LPN VALUE-BASED TRANSFORMATION PROGRAM TCM Nurse 01/10/24 02/09/24 Jonathan Hutchinson MD [address] [place] [address] Surgeon Urology 04/25/24 Juana Tena LPN VALUE-[place] [address] TCM Nurse 01/08/25 02/07/25 Dominique Goldsmith LPN VALUE-BASED TRANSFORMATION PROGRAM TCM Nurse 01/18/25 documented as of this encounter
--- OUTSIDE RECORDS SUMMARY | 2025-02-27 08:59 | XMS_ITS | Encounter Summary ---
Author Organization [facility] Address [address] [place] [address] Care Team Providers Care Team Physician Name Role Phone Vandana Abrams APRN Primary Care Provider Jonathan Hutchinson MD Unavailable Juana Tena LPN Unavailable Unavailable Dominique Goldsmith LPN Unavailable Unavailab le Encounter Details Date Type Department Care Team (Late st Contact Info) Description 01/26/2025 Results Follow-Up [facility] Primary and Urgent Care [address] [place] [address] Vandana Abrams APRN [address] [facility] [address] [place] [address] Social History Tobacco Use Types [...] often do you attend chur ch or episcopalian services? More than 4 times per year 01/10/2024 Do you belong to any clubs o r organizations such as temple groups, unions, fraternal or athletic groups, or [...] often do you attend chur ch or episcopalian services? More than 4 times per year 01/18/2025 Do you belong to any clubs o r organizations such as temple groups, unions, fraternal or athletic groups, or [...] more drinks on one occasion? Never 01/18/2025 [facility] - Occupational Stress Questionnaire Answer Date Recorded [...] any time in the past 12 m [facility], were you homeless or living in a retirement (including now)? No 01/25/2025 [facility] Utilities Answer Date Recorded In the past 12 months has th e [employer], oil, or water company threatened to shut [...] Upcoming Encounters Date Type Department Care Team ([facility] st Contact Info) Description 03/01/2025 12:45 PM EDT Clinical Support Professional [facility] [address], [address] [place] [address] 04/24/2025 9:30 AM EST Clinical Support [facility] Lab [address], [address] [place] [address] 04/24/2025 10:00 AM EST Office Visit [facility] Urology [address], [address] [place] [address] Jonathan Hutchinson MD [address] [place] [address] 06/05/2025 1:20 PM EST Office Visit [facility] Medicine Specialties [address], [address] [place] [address] Arturo Puentes MD [address] [place] [address] 10/25/2025 11:00 AM EDT Office Visit [facility] Medicine Specialties [address], [address] [place] [phone] Indio Stephens MD [address] [place], [place] [address] 11/26/2025 7:45 AM EDT Office Visit [facility] [address] [place] [address] William Beltran MD [address] [facility] [address] [place] [address] 01/28/2026 10:00 AM EDT Office Visit [facility] Primary and Urgent Care [address] [place] [address] Vandana Abrams APRN [address] [place] [address] documented as of this encounter [...] documented as of this encounter Care Teams Team Physician Relationship Specialty Start Date End Date Vandana Abrams APRN [address] [place] [address] PCP - General Internal Medicine 08/13/22 Jonathan Hutchinson MD [address] [place] [address] Surgeon Urology 04/25/24 Juana Tena LPN VAL[employer] [address] TCM Nurse 01/08/25 02/07/25 Dominique Goldsmith LPN VALUE-BASED TRANSFORMATION PROGRAM TCM Nurse 01/18/25 documented as of this encounter
--- OUTSIDE RECORDS SUMMARY | 2025-02-27 09:00 | XMS_ITS | Clinical Summary ---
Author Organization [facility] system[facility] Address [address] [place] [address] Care Team Providers Care Etl Programmer Name Role Phone Vandana Abramstete YANG Primary Care Provide r Allergies Active Allergy Reactions Criticality Noted Date Comments Lovastatin Myalgia Low 03/24/2018 Morphine And Codeine Rash Low 09/16/2015 Medications busPIRone (BUSPAR) 10 MG tablet 1 tablet 2 (Two) Times a Day. 8 Active coenzyme Q10 100 MG capsule Take 2 capsules by mouth Daily. Active Multiple Vitamins-Mineral s (CENTRUM ADULTS) tablet Take by mouth Daily. Active ASPIRIN ADULT LOW STRENGTH 81 MG EC tablet TAKE ONE TABLET BY MOUTH DAILY 90 tablet 1 0 Active omeprazole (priLOSEC) 20 MG capsule Daily. 0 Active nitroglycerin (NITROSTAT) 0.[address] 1 tablet under the tongue Every 5 (Five) Minutes As Needed for Chest Pain. Take no more than 3 doses in 15 minutes. Active vitamin C (ASCORBIC ACID) 250 MG tablet Take 4 tablets by mouth Every Night. Active Sucraid 8500 UNIT/ML solution 1 Active simethicone (MYLICON) 125 MG chewable tablet Chew 1 tablet Every 6 (Six) Hours As Needed for Flatulence. Active doxepin (SINEquan) 25 MG capsule Every Night. 3 Active tamsulosin (FLOMAX) 0.4 MG capsule 24 hr capsuleIndicatio ns:Benign localized prostatic hyperplasia with lower urinary tract symptoms (LUTS) Take 1 capsule by mouth Every Night. 30 capsule 11 3 Active atorvastatin (LIPITOR) 80 MG tablet Take 1 tablet by mouth Daily. 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 Abnormal stress test 02/21/2019 Chest pain, atypical 02/09/2019 Early dry stage nonexudative age-related macular degeneration of both eyes 03/24/2018 Family history of colon canc er requiring screening colonoscopy 05/14/2017 Overview (05/14/2017): Added automatically from request for surgery [id number] Chalazion 12/09/2016 Anemia 01/08/2016 Headache 01/08/2016 High cholesterol 10/01/2015 Sleep apnea 10/01/2015 Cobalamin deficiency 10/01/2015 Resolved Problems Problem Noted Date Diagnosed Date Resolved Date Schatzki's ring 02/28/2016 02/28/2016 Dizziness 10/01/2015 08/08/2020 Encounters Date Type Department Care Team Description 01/08/2025 Telephone [facility] [address] [place] [address] Vandana Abrams APRN 01/05/2025 8:48 PM EDT - 01/06/2025 11:01 AM EDT Emergency [facility] [address] [place] [address] Ike Enamorado MD Yates, Joseph R Jr., MD Blanton, Morgan, DO Near syncope (Primary Dx); Bradycardia; Right lower quadrant abdominal pain Discharge Disposition: Home or Self Care 01/05/2025 Travel from Last 3 Months Immunizations Immunization Administration Dates Next Due COVID-19 (PFIZER) Purple Cap Monovalent 06/19/19 21 Flu Vaccine Quad PF >36MO 02/28/2019 Flu Vaccine Split Quad 03/20/2020,02/28/2019 Fluzone >6mos 02/23/2017 Fluzone (or Fluarix & Flulav al for VFC) >6mos 03/20/2021,03/19/2020 Fluzone Quad >6mos (Multi-dose) 02/23/2017 Hepatitis A 01/23/2019,11/11/2017 Hepatitis B 11/11/2017 Influenza TIV (IM) 06/21/2013 Influenza, Unspecified 03/24/2018,04/02/2015,09/2011 Pneumococcal, Unspecified 04/02/2015 Tdap 08/19/2017 flucelvax quad pfs =>4 YRS 06/14/2019,03/24/2018 Family History Medical History Relation Name Comments Alcohol abuse Father Arthritis Father Heart attack Father Heart disease Father Hypertension Father Colon cancer Mother Cancer Other Relation Name Status Comments Father Mother Other Social History Tobacco Use Types Packs/Day Years Used Date Smoking Tobacco: Never Smokeless Tobacco: Never Tobacco Cessation:Counseling Given: Not Answered Alcohol Use Standard Drinks/Week Comments No 0 (1 standard drink = 0.6 oz pur e alcohol) [facility] Utilities Answer Date Recorded In the past 12 months has e [employer], gas, oil, or water [employer] threatened to shut off services in your [...] Date Recorded Retired Total Score 0 06/10/2021 [facility] [place] of Occupat ional Health - Occupational Stress [...] GED or equivalent No 01/06/2025 Preferred Language Australian 01/06/2025 PHQ-2 Answer Date Recorded Patient Health [...] Mass Index 27.64 01/06/2025 3:54 AM EDT Plan of Treatment Health Maintenance Due Date Last Done Comments COLOGUARD 10/31/2003 COLON CANCER SCREENING 5 YEA R SIGMOIDOSCOPY 10/31/2003 CT COLONOGRAPHY 10/31/2003 FIT Testing (1 year) 10/31/2003 ANNUAL WELLNESS VISIT 10/01/2015 FECAL OCCULT BLOOD TEST 01/18/2020 01/17/2019, 10/05 INFLUENZA VACCINE 12/29/2024 02/22/2024, , 03/16/2022, Additional history exists LIPID PANEL 01/11/2025 01/12/2024, 12/29, 10/13/2022, Additional history exists COVID-19 Vaccine (2024- 6 season) 2025 03/16/2022, 06/12/2021, 07/19/2020, Additional history exists COLONOSCOPY 09/05/2025 09/05/2020, 05/01, 05/19/2017, Additional history exists COLORECTAL CANCER SCREENING 09/05/2025 TDAP/TD VACCINES (2 - Td or Tdap) 08/20/2027 018 ZOSTER VACCINE Completed 12/21/2022, 08/13/2022 HEPATITIS C SCREENING Completed 01/10/2024 , 01/10/2024, 11/29/2021, Additional history exists Pneumococcal Vaccine 50+ Completed 01/18/2024, 07/2014 Medical Devices Implanted Type Area Cellular Phone Repairer Device Identifier Shelf Expiration Date Model / Serial / Lot Implant Implant Description:REPORTS HARDWARE IN PLACE IN BACK AND NECK FROM PREVIOUS SURGERIES Procedures Procedure Name Priority Date/Time Associated Diagnosis [...] (NO CULTURE) STAT 01/05/2025 9:49 PM EDT LIGHT BLUE TOP STAT 01/05/2025 8:37 PM EDT GOLD TOP - SST STAT 01/05/2025 8:37 PM EDT LAVENDER TOP STAT 01/05/2025 8:37 PM EDT DK GREEN TOP STAT 01/05/2025 8:37 PM EDT CBC AND DIFFERENTIAL STAT 01/05/2025 8:37 PM EDT CBC WITH AUTO DIFFERENTIAL STAT 01/05/2025 8:37 PM EDT LACTIC ACID, PLASMA STAT 01/05/2025 8 :37 PM EDT LIPASE STAT 01/05/2025 8:37 PM EDT COMPREHENSIVE METABOLIC PANEL STAT 01/05/2025 8:37 PM EDT RAINBOW DRAW STAT 01/05/2025 8:37 PM EDT LIPID PANEL Routine 12/08/2021 8:58 AM EDT Precordial pain Hypercholesteremia Fatigue, unspecified type 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, unspecified vessel or lesion type SCANNED - COLONOSCOPY 09/05/2020 HCV ANTIBODY RFX TO QNT PCR Routine 08/08/2020 10:23 AM EST Elevated liver enzymes Epigastric pain OCCULT BLOOD, FECAL BY IMMUNOASSAY Routine 01/17/2019 3:34 PM EDT Other dietary vitamin B12 deficiency anemia from Last 3 Months or Most Recently Relevant to Health Maintenance Results * High Sensitivity Troponin T 1Hr (01/06/2025 1:15 AM EDT) HS Troponin T 13 <22 ng/L 01/06/2025 1:40 AM EDT [facility] Troponin T Numeric Delta 1 Abnormal if >/=3 ng/L 01/06/2025 1:40 AM EDT [facility] Blood Venipuncture / Unknown 01/06/2025 1:15 AM EDT 01/06/2025 1:17 AM EDT [facility] - 01/06/2025 1:40 AM EDT High [...] MD LAB BLOOD ORDERABLES Final Resul t [facility]
[address] [place] [address], * CT Angiogram Chest Pulmonary Embolism (01/06/2025 [...] Sensitivity Troponin T (01/06/2025 12:10 AM EDT) [facility] HS Troponin T 12 <22 ng/L 01/06/2025 12:37 AM EDT [facility] Blood Venipuncture / Unknown 01/06/2025 12:10 AM EDT 01/06/2025 12:13 AM EDT Narrative [facility] - 01/06/2025 12:37 AM EDT High [...] ORDERABLES Final Resul t Performing Organization Address City/[facility]/ZIP Co de Phone Number [facility]
[address] [place] [address], * ECG 12 Lead Syncope (01/06/2025 12:09 AM EDT) us Ike Enamorado MD ECG ORDERABLES Final Result * POC Glucose Once (01/05/2025 11:54 PM EDT) [facility] Glucose 74 70 - 130 mg/dL 01/05/2025 11:57 PM EDT [facility] Comment:Serial Number: [id number]: [id number] Blood 01/05/2025 11:5 4 PM EDT 01/05/2025 11:57 PM EDT us Ike Enamorado MD POINT OF CARE TEST ORDERABLES Fi nal Result Performing Organization Address City/[facility]/ZIP Co de Phone Number [facility]
[address] [place] [id number], * CT Abdomen Pelvis With Contrast (01/05/2025 [...] Yellow Yellow, Straw 01/05/2025 9:58 PM EDT [facility] Appearance, UA Clear Clear 01/05/2025 9:58 PM EDT [facility] pH, UA 6.5 5.0 - 8.0 01/05/2025 9:58 PM EDT [facility] Specific [place], UA <=1.005 1.005 - 1.030 01/05/2025 9:58 PM EDT [facility] Glucose, UA Negative Negative 01/05/2025 9:58 PM EDT [facility] Ketones, UA Negative Negative 01/05/2025 9:58 PM EDT [facility] Bilirubin, UA Negative Negative 01/05/2025 9:58 PM EDT [facility] Blood, UA Negative Negative 01/05/2025 9:58 PM EDT [facility] Protein, UA Negative Negative 01/05/2025 9:58 PM EDT [facility] Leuk Esterase, UA Negative Negative 01/05/2025 9:58 PM EDT [facility] Nitrite, UA Negative Negative 01/05/2025 9:58 PM EDT [facility] Urobilinogen, UA 0.2 E.U./dL 0.2 - 1.0 E.U./dL 01/05/2025 9:58 PM EDT [facility] Urine Urine specimen obtained by clean catch procedure / Unknown Collection / Unknown 01/05/2025 9:49 PM EDT 01/05/2025 9:55 PM EDT [facility] - 01/05/2025 9:58 PM EDT Urine microscopic not indicated. us Ike Enamorado MD URINE ORDERABLES Final Result Performing Organization Address City/[facility]/ZIP Co de Phone Number [facility]
[address] [place] [address], * Gold Top - SST (01/05/2025 8:37 PM EDT) Extra Tube Hold for add-ons. 01/05/2025 9:00 PM EDT [facility] Comment:Auto resulted. Blood Venipuncture / Unknown 01/05/2025 8:37 PM EDT 01/05/2025 8:41 PM EDT us Ike Enamorado MD LAB BLOOD ORDER ONLY Final Resul t Performing Organization Address [facility] Co de Phone Number [facility]
[address] [place] [address], * Green Top (Gel) (01/05/2025 8:37 PM EDT) Extra Tube Hold for add-ons. 01/05/2025 8:45 PM EDT [facility] Comment:Auto resulted. Blood Venipuncture / Unknown 01/05/2025 8:37 PM EDT 01/05/2025 8:41 PM EDT us Ike Enamorado MD LAB BLOOD ORDER ONLY Final Resul t Performing Organization Address City/[facility]/ZIP Co de Phone Number [facility]
[address] [place] [address], [place] [phone] * CBC Auto Differential (01/05/2025 8:37 PM EDT) WBC 5.50 3.40 - 10.80 10*3/mm3 01/05/2025 8:44 PM EDT [facility] RBC 4.27 4.14 - 5.80 10*6/mm3 01/05/2025 8:44 PM EDT [facility] Hemoglobin 13.0 13.0 - 17.7 g/dL 01/05/2025 8:44 PM EDT [facility] Hematocrit 37.7 37.5 - 51.0 % 01/05/2025 8:44 PM EDT [facility] MCV 88.3 79.0 - 97.0 fL 01/05/2025 8:44 PM EDT [facility] MCH 30.4 26.6 - 33.0 pg 01/05/2025 8:44 PM EDT [facility] MCHC 34.5 31.5 - 35.7 g/dL 01/05/2025 8:44 PM EDT [facility] RDW 12.7 12.3 - 15.4 % 01/05/2025 8:44 PM EDT [facility] RDW-SD 40.9 37.0 - 54.0 fl 01/05/2025 8:44 PM EDT [facility] MPV 9.9 6.0 - 12.0 fL 01/05/2025 8:44 PM EDT [facility] Platelets 215 140 - 450 10*3/mm3 01/05/2025 8:44 PM EDT [facility] Neutrophil % 61.6 42.7 - 76.0 % 01/05/2025 8:44 PM EDT [facility] Lymphocyte % 24.5 19.6 - 45.3 % 01/05/2025 8:44 PM EDT [facility] Monocyte % 8.2 5.0 - 12.0 % 01/05/2025 8:44 PM EDT [facility] Eosinophil % 4.4 0.3 - 6.2 % 01/05/2025 8:44 PM EDT [facility] Basophil % 1.1 0.0 - 1.5 % 01/05/2025 8:44 PM EDT [facility] Immature Grans % 0.2 0.0 - 0.5 % 01/05/2025 8:44 PM EDT [facility] Neutrophils, Absolute 3.39 1.70 - 7.00 10*3/mm3 01/05/2025 8:44 PM EDT [facility] Lymphocytes, Absolute 1.35 0.70 - 3.10 10*3/mm3 01/05/2025 8:44 PM EDT [facility] Monocytes, Absolute 0.45 0.10 - 0.90 10*3/mm3 01/05/2025 8:44 PM EDT [facility] Eosinophils, Absolute 0.24 0.00 - 0.40 10*3/mm3 01/05/2025 8:44 PM EDT [facility] Basophils, Absolute 0.06 0.00 - 0.20 10*3/mm3 01/05/2025 8:44 PM EDT [facility] Immature Grans, Absolute 0.01 0.00 - 0.05 10*3/mm3 01/05/2025 8:44 PM EDT [facility] nRBC 0.0 0.0 - 0.2 /100 WBC 01/05/2025 8:44 PM EDT [facility] Blood Venipuncture / Unknown 01/05/2025 8:37 PM EDT 01/05/2025 8:41 PM EDT us Ike Enamorado MD LAB BLOOD ORDERABLES Final Resul t [facility]
[address] [place] [address], * Lavender Top (01/05/2025 8:37 PM EDT) Extra Tube hold for add-on 01/05/2025 8:45 PM EDT [facility] Comment:Auto resulted Blood Venipuncture / Unknown 01/05/2025 8:37 PM EDT 01/05/2025 8:41 PM EDT us Ike Enamorado MD LAB BLOOD ORDER ONLY Final Resul t [facility]
[address] [place] [address], * Light Blue Top (01/05/2025 8:37 PM EDT) Extra Tube Hold for add-ons. 01/05/2025 8:45 PM EDT [facility] Comment:Auto resulted Blood Venipuncture / Unknown 01/05/2025 8:37 PM EDT 01/05/2025 8:41 PM EDT us Ike Enamorado MD LAB BLOOD ORDER ONLY Final Resul t [facility]
[address] [place] [address], * Lipase (01/05/2025 8:37 PM EDT) Lipase 50 13 - 60 U/L 01/05/2025 9:03 PM EDT [facility] Blood Venipuncture / Unknown 01/05/2025 8:37 PM EDT 01/05/2025 8:41 PM EDT us Ike Enamorado MD LAB BLOOD ORDERABLES Final Resul t Performing Organization Address City/[facility]/ZIP Co de Phone Number [facility]
[address] [place] [address], * Lactic Acid, Plasma (01/05/2025 8:37 PM EDT) Lactate 0.9 0.5 - 2.0 mmol/L 01/05/2025 8:59 PM EDT [facility] Blood Venipuncture / Unknown 01/05/2025 8:37 PM EDT 01/05/2025 8:41 PM EDT us Ike Enamorado MD LAB BLOOD ORDERABLES Final Resul t [facility]
[address] [place] [id number], * (ABNORMAL) Comprehensive Metabolic Panel (01/05/2025 8:37 PM EDT) Glucose 125(H) 65 - 99 mg/dL 01/05/2025 9:13 PM EDT [facility] BUN 16.0 8.0 - 23.0 mg/dL 01/05/2025 9:13 PM EDT [facility] Creatinine 1.10 0.76 - 1.27 mg/dL 01/05/2025 9:13 PM EDT [facility] Sodium 142 136 - 145 mmol/L 01/05/2025 9:13 PM EDT [facility] Potassium 4.0 3.5 - 5.2 mmol/L 01/05/2025 9:13 PM EDT [facility] Chloride 107 98 - 107 mmol/L 01/05/2025 9:13 PM EDT [facility] CO2 24.8 22.0 - 29.0 mmol/L 01/05/2025 9:13 PM EDT [facility] Calcium 8.8 8.6 - 10.5 mg/dL 01/05/2025 9:13 PM EDT [facility] Total Protein 6.5 6.0 - 8.5 g/dL 01/05/2025 9:13 PM EDT [facility] Albumin 4.2 3.5 - 5.2 g/dL 01/05/2025 9:13 PM EDT [facility] ALT (SGPT) 46(H) 1 - 41 U/L 01/05/2025 9:13 PM EDT [facility] AST (SGOT) 38 1 - 40 U/L 01/05/2025 9:13 PM EDT [facility] Alkaline Phosphatase 78 39 - 117 U/L 01/05/2025 9:13 PM EDT [facility] Total Bilirubin 0.7 0.0 - 1.2 mg/dL 01/05/2025 9:13 PM EDT [facility] Globulin 2.3 gm/dL 01/05/2025 9:13 PM EDT [facility] A/G Ratio 1.8 g/dL 01/05/2025 9:13 PM EDT [facility] BUN/Creatinine Ratio 14.5 7.0 - 25.0 01/05/2025 9:13 PM EDT [facility] Anion Gap 10.2 5.0 - 15.0 mmol/L 01/05/2025 9:13 PM EDT [facility] eGFR 74.0 >60.0 mL/min/1.7 3 01/05/2025 9:13 PM EDT [facility] Blood Venipuncture / Unknown 01/05/2025 8:37 PM EDT 01/05/2025 8:41 PM EDT Narrative [facility] - 01/05/2025 9:13 PM EDT GFR [...] does not include race as a factor Ike Enamorado MD LAB BLOOD ORDERABLES Final Resul t [facility]
[address] [place] [address], * (ABNORMAL) Lipid Panel (12/08/2021 8:58 AM EDT) Total Cholesterol 133 0 - 200 mg/dL [facility] Comment: Cholesterol Reference Ranges (U.S. Department of Health and Human Services ATP III Classifications) Desirable <200 mg/dL Borderline High 200-239 mg/dL High Risk >240 mg/dL Triglyceride Reference Ranges (U.S. Department of Health and Human Services ATP III Classifications) Normal <150 mg/dL Borderline High 150-199 mg/dL High 200-499 mg/dL Very High >500 mg/dL HDL Reference Ranges (U.S. Department of Health and Human Services ATP III Classifications) Low <40 mg/dl (major risk factor for CHD) High >60 mg/dl ('negative' risk factor for CHD) LDL Reference Ranges (U.S. Department of Health and Human Services ATP III Classifications) Optimal <100 mg/dL Near Optimal 100-129 mg/dL Borderline High 130-159 mg/dL High 160-189 mg/dL Very High >189 mg/dL Triglycerides 59 0 - 150 mg/dL [facility] HDL Cholesterol 67(H) 40 - 60 mg/dL [facility] VLDL Cholesterol Gonzalo 13 5 - 40 mg/dL [facility] LDL Chol Calc (NIH) 53 0 - 100 mg/dL [facility] Blood 12/08/2021 8:58 AM EDT 12/08/2021 Narrative [facility] ([facility]) - 12/18/2021 8:08 PM EDT Performed at: [address] [place] [address] [id number] [employer] Supervisor: Jaime Dumont MD, Phone: [phone] Patient Fasting: Y us Usama Ye MD LAB BLOOD ORDERABLES Final Re sult [facility] ([facility]) [address] [place] [address], [facility] [address] [place] [address], [place] [phone] * SCANNED - COLONOSCOPY (09/05/2020) us Usama Ye MD CHART REVIEW TABS Final Re sult * HCV Antibody Rfx To Qnt PCR (08/08/2020 10:23 AM EST) Hepatitis C Ab <0.1 0.0 - 0.9 s/co ratio [facility] Blood 08/08/2020 10:2 3 AM EST 08/08/2020 Narrative [facility] ([facility]) - 08/14/2020 9:11 AM EDT [facility]formed at: [facility] [address] [place], [place] [id number] [employer] Supervisor: Gavin Parr PhD, Phone: [phone] us Usama Ye MD LAB BLOOD ORDERABLES Final Re sult Performing Organization Address [facility] Co de Phone Number [facility] [address] [place] [address], [facility] [address] [place] [address], * Occult Blood, Fecal By Immunoassay - Stool, Per Rectum (01/17/2019 3:34 PM EDT) Fecal Occult Blood Negative Negative [facility] Stool Specimen from rectum / Unknown 01/17/2019 3:34 PM EDT 01/17/2019 Comment:ST Angel [facility] (AMBUL[facility]ORY) - 01/18/2019 4:09 PM EDT Performed at: [address] [place] [address] [place] [address] [id number] [employer] Processing Supervisor: Gavin Parr PhD, Phone: [phone] us Usama Ye MD BODY FLUIDS AND STOOLS ORDERA BLES Final Result Performing Organization Address [facility] de Phone Number [facility] ([facility]) [address] [place] [address], [facility] [address] [place] [address], [place] [phone] from Last 3 Months or Most Recently Relevant to Health Maintenance Insurance [facility] Medicare [employer] PPO Advance Directives * CPR (Attempt to Resuscitate) (Latest Code Status on File) Date Activated Date Inactivated Comments 01/06/2025 2:08 AM 01/06/2025 1:01 PM Question Answer Comments Code Status (Patient has no pulse and is not breathing): CPR (Attempt to Resuscitate) Medical Interventions (Patie nt has pulse or is breathing): Full Support Care Teams Etl Programmer Relationship Specialty Start Date End Date Vandana Abrams APRN [address] [phone] PCP - General Family Medicine 01/05/25
--- OUTSIDE RECORDS SUMMARY | 2025-02-27 09:00 | XMS_ITS | Encounter Summary ---
[facility] Address [address] [place] [address] Care Team Providers Care Jacquard Loom Weaver Name Role Phone Vandana Abrams PARTS COUNTERMAN Primary Care Provide r Encounter Details Date Type Department Care Team (Late st Contact Info) Description 01/08/2025 Telephone [facility] [address] [place] [address] Vandana Abrams, PARTS COUNTERMAN [address] [place], [place] [id number] Social History Tobacco Use Types Packs/Day Years Used Date Smoking Tobacco: Never Smokeless Tobacco: Never Alcohol Use Standard Drinks/Week Comments No 0 (1 standard drink = 0.6 oz pur e alcohol) [facility] Utilities Answer Date Recorded In the past 12 months has [employer], [employer], oil, or water [employer] threatened to shut off services in your [...] Date Recorded Retired Total Score 0 06/10/2021 [facility] [place] of Occupat ional [facility] - Occupational Stress Questionnaire Answer Date [...] GED or equivalent No 01/06/2025 Preferred Language Uzbek 01/06/2025 PHQ-2 Answer Date Recorded Patient Health Questionnaire-2 Score 0 01/06/2025 Sex and Gender Information Value Date Recorded Sex Assigned at Not on file Legal Sex Male 9:50 AM EDT Gender Identity Not on file Sexual Orientation Not on file documented as of this encounter Plan of Treatment Not on file documented as of this encounter Visit Diagnoses Not on filedocumented in this encounter Care Teams Jacquard Loom Weaver Relationship Specialty Start Date End Date Vandana Abrams APRN [address] [place] [phone] PCP - General Family Medicine 01/05/25 documented as of this encounter
--- OUTSIDE RECORDS SUMMARY | 2025-02-27 09:00 | XMS_ITS | Encounter Summary ---
[facility] Address [address] [place] [address] Care Team Providers Care Marketing Executive Name Role Phone Vandana Abramsedie YANG Primary Care Provide r Encounter Details Date Type Department Care Team (Latest Contact Info) Description 01/05/2025 Travel Social History Tobacco Use Types Packs/Day Years Used Date Smoking Tobacco: Never Smokeless Tobacco: Never Alcohol Use Standard Drinks/Week Comments No 0 (1 standard drink = 0.6 oz pur e alcohol) [facility] Utilities Answer Date Recorded In the past 12 months has [facility] electric, gas, oil, or water company threatened [...] Date Recorded Retired Total Score 0 06/10/2021 [facility] - Occupational Stress [...] GED or equivalent No 01/06/[address] [place] 01/06/2025 PHQ-2 Answer Date Recorded Patient Health Questionnaire-2 Score 0 01/06/2025 Sex and Gender Information Value Date Recorded Sex Assigned at Not on file Legal Sex Male 9:50 AM EDT Gender Identity Not on file Sexual Orientation Not on file documented as of this encounter Functional Status * Calculated C-SSRS Risk Score (Lifetime/Recent) Answer Date of Assessment Author No Risk Indicated 01/05/2025 8:29 PM EDT Africa Smith RN * [facility] Suicide Severity Rating Scale (Screener/Recent Self-Report) Question Answer Date of Assessment Author 1. Wish to be (Past 1 Month) No 025 8:29 PM EDT Africa Smith RN 2. Non-Specific Active Suici mercy Thoughts (Past 1 Month) No 01/05/2025 8:29 PM EDT Africa Smith RN 6. Suicidal Behavior (Lifetime) No 8:29 PM EDT Africa Smith RN documented as of this encounter Plan of Treatment Not on file documented as of this encounter Visit Diagnoses Not on filedocumented in this encounter Care Teams Marketing Executive Relationship Specialty Start Date End Date Vandana Abrams APRN [address] [place] [phone] PCP - General Family Medicine 01/05/25 documented as of this encounter
== END 2025-02-27 23:59 | disposition home or self-care (01) ==
LOC: RAD 08:56
PROVIDERS: PCP Nurse Practitioner Family; Visit Provider Internal Medicine Gastroenterology
DX: K59.00 Constipation, unspecified (principal); K59.89 Other specified functional intestinal disorders
CPT/HCPCS: 74018